=== PATIENT | female | born 1960 | race Caucasian/White ===

== ENCOUNTER → 2020-08-08 13:10 | Outpatient (BNVA) | payer OTHER, SELFPAY | PROVIDERS: PCP Family Medicine; Visit Provider Physician Assistant | DX: E66.3 Overweight (principal); Z68.29 Body mass index [BMI] 29.0-29.9, adult | CPT/HCPCS: 99214 ==

== ENCOUNTER → 2020-09-09 08:12 | Outpatient (BNVA) | payer OTHER, SELFPAY | PROVIDERS: PCP Family Medicine; Visit Provider Dietitian, Registered | DX: Z76.89 Persons encountering health services in other specified circumstances (principal) ==

== ENCOUNTER → 2020-10-10 07:43 | Outpatient (BNVA) | payer OTHER, SELFPAY | PROVIDERS: Visit Provider Physician Assistant | DX: Z76.89 Persons encountering health services in other specified circumstances (principal) ==

== ENCOUNTER 2021-03-17 09:29 | Outpatient (REF) | payer OTHER, SELFPAY ==
[2021-03-17 11:13] LABS: Alanine Aminotransferase 21 U/L (0-31); Albumin Level 4.4 g/dL (3.5-5.0); Alkaline Phosphatase 123 U/L (39-117); Anion Gap 12 (12-20); Aspartate Amino Transferase 19 U/L (5-31); Bilirubin Total 0.6 mg/dL (0.0-1.0); Blood Urea Nitrogen 17 mg/dL (9-16); Carbon Dioxide 26 mmol/L (22-29); Chloride 108 mmol/L (96-108); Cholesterol 191 mg/dL; Estimated Glomerular Filt Rate > 60; Glucose Fasting 93 mg/dL (60-99); HDL Cholesterol 58 mg/dL; LDL Cholesterol Calculated 118 mg/dl; Potassium 4.1 mmol/L (3.3-5.1); Sodium 142 mmol/L (135-145); Total Protein 7.2 g/dL (6.5-8.0); Triglycerides 76 mg/dL
== END 2021-03-17 09:30 | disposition home or self-care (01) ==
LOC: HO.WFDLDS 09:29
PROVIDERS: Visit Provider Family Medicine
DX: Z00.00 Encounter for general adult medical examination without abnormal findings (principal)
CPT/HCPCS: 36415; 80053; 80061; 84443

== ENCOUNTER 2021-04-28 08:48 | Outpatient (REF) | payer OTHER, SELFPAY ==
--- NOTE | ~2021-04-28 | MM_ITS ---
EXAMINATION: MM SCREENING DIGITAL BREAST TOMOSYNTHESIS, BILATERAL CLINICAL INFORMATION: Screening. Asymptomatic. The lifetime risk of breast cancer based on the Tyrer-Cuzick Model is 4%. COMPARISON: Mammography: 03/04/2019, outside exam 10/29/2015 ([facility]). TECHNIQUE: Digital breast tomosynthesis is performed in both the craniocaudal and mediolateral oblique views along with computer-aided detection (CAD). Synthesized 2D images are generated from the tomosynthesis. FINDINGS: There are scattered areas of fibroglandular density (ACR BI-RADS breast composition Category b). There are no significant masses, abnormal calcifications, or other abnormalities. There is a small stable benign circumscribed nodule mid to posterior 9:00 left breast, possibly intramammary node. MM/MM tomosynthesis screening BI IMPRESSION: No mammographic evidence of malignancy. ASSESSMENT: BI-RADS 2: Benign RECOMMENDATION: Routine annual mammography screening. This patient's information was entered into a reminder system with a target due date for their next mammogram.
== END 2021-04-28 08:49 | disposition home or self-care (01) ==
LOC: HO.MAMMO 08:48
PROVIDERS: Visit Provider Family Medicine
DX: Z12.31 Encounter for screening mammogram for malignant neoplasm of breast (principal)
CPT/HCPCS: 77063; 77067

== ENCOUNTER → 2021-06-03 08:37 | Outpatient (BNVA) | payer OTHER, SELFPAY | PROVIDERS: PCP Family Medicine; Referring Provider Family Medicine; Visit Provider Nurse Practitioner Family | DX: G47.9 Sleep disorder, unspecified (principal); R06.83 Snoring | CPT/HCPCS: 99202 ==

== ENCOUNTER → 2021-06-25 08:54 | Outpatient (REF) | payer OTHER, SELFPAY | LOC: HO.SL 08:54 | PROVIDERS: PCP Family Medicine; Visit Provider Nurse Practitioner Family | DX: G47.9 Sleep disorder, unspecified (principal); R06.83 Snoring | CPT/HCPCS: 95806 ==

== ENCOUNTER → 2021-09-09 09:34 | Outpatient (BNVA) | payer OTHER, SELFPAY | PROVIDERS: PCP Family Medicine; Referring Provider Family Medicine; Visit Provider Nurse Practitioner Family ==

== ENCOUNTER 2022-03-19 08:35 | Outpatient (REF) | payer OTHER, SELFPAY ==
[2022-03-19 10:35] LABS: MANUAL DIFF FLAG NO
[2022-03-19 10:40] LABS: Basophils Percent Auto 0.8 % (0-2); Eosinophils Absolute Auto 0.1 X10*3/uL (0.0-0.4); Eosinophils Percent Auto 2.7 % (0-4); Hematocrit 39.9 % (37.0-47.0); Hemoglobin 12.8 g/dl (12.0-16.0); Imm Gran Abs Auto 0.01 X10*3/uL (0.00-0.03); Imm Gran Pct Auto 0.2 % (0.0-0.4); Lymphocytes Absolute Auto 1.3 X10*3/uL (1.2-4.9); Lymphocytes Percent Auto 23.9 % (20-40); Mean Corpuscular HGB Conc 32.1 g/dl (31.0-35.0); Mean Corpuscular Hemoglobin 30.2 pg (27.0-33.0); Mean Corpuscular Volume 94.1 fL (80.0-98.0); Mean Platelet Volume 10.3 fL (9.4-12.3); Monocytes Absolute Auto 0.4 X10*3/uL (0.1-1.2); Monocytes Percent Auto 8.2 % (2-11); Neutrophils Absolute Auto 3.4 x10*3/uL (2.0-8.3); Neutrophils Percent Auto 64.2 % (45-73); Platelet Count 297 X10*3/uL (160-400); Red Blood Count 4.24 X10*6/uL (4.20-5.50); Red Cell Distribution Width 13.4 % (11.0-16.0); White Blood Count 5.3 X10*3/uL (4.8-10.8)
[2022-03-19 10:44] LABS: Appearance Urine CLEAR; Color Urine STRAW; Glucose Urine UA NEG (NEG); Leukocyte Esterase Urine NEG (NEG); Nitrite Urine NEG (NEG); Urine Blood NEG (NEG); Urine Ketones NEG (NEG); Urine Protein NEG (NEG-TRACE)
[2022-03-19 10:58] LABS: Alanine Aminotransferase 22 U/L (0-31); Albumin Level 4.1 g/dL (3.5-5.0); Alkaline Phosphatase 97 U/L (39-117); Anion Gap 14 (12-20); Aspartate Amino Transferase 22 U/L (5-31); Bilirubin Total 0.3 mg/dL (0.0-1.0); Blood Urea Nitrogen 19 mg/dL (9-16); Calcium 10.2 mg/dL (8.4-10.2); Carbon Dioxide 22 mmol/L (22-29); Chloride 112 mmol/L (96-108); Cholesterol 210 mg/dL; Estimated Glomerular Filt Rate > 60; Glucose Fasting 95 mg/dL (60-99); HDL Cholesterol 60 mg/dL; LDL Cholesterol Calculated 133 mg/dl; Potassium 3.8 mmol/L (3.3-5.1); Sodium 144 mmol/L (135-145); Total Protein 6.9 g/dL (6.5-8.0); Triglycerides 88 mg/dL
[2022-03-19 11:18] LABS: TSH reflex Free T4 0.42 uIU/mL (0.32-4.0)
== END 2022-03-19 08:36 | disposition home or self-care (01) ==
LOC: HO.WFDLDS 08:35
PROVIDERS: Visit Provider Family Medicine
DX: Z00.00 Encounter for general adult medical examination without abnormal findings (principal)
CPT/HCPCS: 36415; 80053; 80061; 81003; 84443; 85025

== ENCOUNTER 2022-04-29 09:02 | Outpatient (REF) | payer OTHER, SELFPAY ==
--- NOTE | ~2022-04-29 | MM_ITS ---
EXAMINATION: MM SCREENING DIGITAL BREAST TOMOSYNTHESIS, BILATERAL CLINICAL INFORMATION: Screening. Asymptomatic. The lifetime risk of breast cancer based on the Tyrer-Cuzick Model is 7%. COMPARISON: Mammography: 04/28/2021, 03/04/2019; outside mammography 10/29/2015 ([facility]). TECHNIQUE: Digital breast tomosynthesis is performed in both the craniocaudal and mediolateral oblique views along with computer-aided detection (CAD). Synthesized 2D images are generated from the tomosynthesis. FINDINGS: There are scattered areas of fibroglandular density (ACR BI-RADS breast composition Category b). Left breast is similar to prior studies. There is no developing density or interval mass or architectural abnormality. Neither breast shows abnormal calcifications. The bilateral axilla and skin contours are unremarkable. Right CC view has asymmetric density lower outer anterior breast, 3 cm from nipple. There is no correlate on CC view and finding may represent summation artifact or incompletely compressed glandular tissue. MM/MM tomosynthesis screening BI IMPRESSION: Right: -Asymmetric density anterior outer breast, 3 cm from nipple, possibly summation artifact or incompletely compressed glandular tissue. Left: -No mammographic evidence of malignancy. ASSESSMENT: BI-RADS 0: Incomplete - Need Additional Imaging Evaluation RECOMMENDATION: 1. Additional views of the right breast (spot CC nipple in profile, rolled CC x2). 2. Targeted ultrasound if warranted after review of the additional views. 3. Radiology department staff will contact the patient for additional imaging. This patient's information was entered into a reminder system with a target due date for their next mammogram.
== END 2022-04-29 09:03 | disposition home or self-care (01) ==
LOC: HO.MAMMO 09:02
PROVIDERS: PCP Family Medicine; Visit Provider Family Medicine
DX: Z12.31 Encounter for screening mammogram for malignant neoplasm of breast (principal)
CPT/HCPCS: 77063; 77067

== ENCOUNTER → 2022-05-18 10:18 | Outpatient (REF) | payer OTHER, SELFPAY ==
--- NOTE | 2022-05-18 10:22 | CA_ITS ---
Acquisition Time: 2022-05-18 10:40:49 Total Exercise Time: 00:05:07 Test Indications: Dyspnea Medications: Protocol: JUANY Max HR: 139 BPM 86% of Pred: 161 BPM Max BP: 120/080 mmHG Max Work Load: 7.0 METS Exercise stress test using Juany prtotocol total of 5 min 7 sec, METS 7 and TAPHR up to 86 %. Pt had significant SOB so the test was terminated. EKG without arrhythmias, no ischemic changes seen during exercise or in recovery. Equivical test due to patient's sx, sshould be evaluated further due to her sx and strong family history. Normotensive response tpo exercise. Test reviewed Dr. King. EKG tracing very difficult to read, recomending Nuclear stress test Referred By: Morteza Ross Overread By: Amy Nevarez NP
== END ==
LOC: HO.CARD 10:18
PROVIDERS: PCP Family Medicine; Visit Provider Family Medicine
DX: R06.00 Dyspnea, unspecified (principal)
CPT/HCPCS: 93017

== ENCOUNTER 2022-05-19 14:43 | Outpatient (REF) | payer OTHER, SELFPAY ==
--- NOTE | ~2022-05-19 | MM_ITS ---
EXAMINATION: MM DIAGNOSTIC DIGITAL BREAST TOMOSYNTHESIS, RIGHT CLINICAL INFORMATION: Recall from screening for asymmetric density anterior outer right breast, likely summation artifact or incompletely compressed glandular tissue. COMPARISON: Mammography: 04/29/2022, 04/28/2021, 03/04/2019 TECHNIQUE: Digital breast tomosynthesis is performed. 2D images are generated from the tomosynthesis. The following views are obtained: Spot CC, rolled CC x2. FINDINGS: There are scattered areas of fibroglandular density (ACR BI-RADS breast composition Category b). Additional views show no persistent asymmetric density. There is no mass or architectural abnormality. Results are discussed with the patient at time of visit. MM/MM tomosynthesis added views R IMPRESSION: Additional views show no persistent asymmetric density. ASSESSMENT: BI-RADS 1: Negative RECOMMENDATION: Routine annual mammography screening. This patient's information was entered into a reminder system with a target due date for their next mammogram.
== END 2022-05-19 14:44 | disposition home or self-care (01) ==
LOC: HO.MAMMO 14:43
PROVIDERS: PCP Family Medicine; Visit Provider Family Medicine
DX: R92.2 Inconclusive mammogram (principal)
CPT/HCPCS: 77061; 77065

== ENCOUNTER → 2022-07-17 09:22 | Outpatient (REF) | payer OTHER, SELFPAY ==
--- NOTE | ~2022-07-17 | NM_ITS ---
Lexiscan Myocardial perfusion study Indication: Shortness of breath, assess for coronary disease and ischemia Technique: The patient was brought in for a Lexiscan perfusion study on 07/17/2022 and was injected 0.4 mg of Lexiscan intravenously. Within a minute of this injection 25 mCi of sestamibi was given intravenously. Images were obtained using the SPECT gamma camera interlaced with the gating device. Images were obtained in supine position. Resting perfusion study was performed on 07/20/2022. Patient was administered 25 mCi of sestamibi intravenously at rest. Images were then obtained in supine position. Total DLP 107mGy-cm. Images were processed with the software and compared side to side in short axis, horizontal long axis and vertical long axis views. Findings: Raw acquisition reviewed. The stress perfusion study showed mildly diminished tracer uptake in the distal part of anterior wall. No significant change with CT attenuation correction. The gated study shows normal LV systolic function with calculated LVEF of 67%. LV cavity is normal in size. The gated study shows normal wall thickening and contraction of segments. Resting study shows slightly diminished tracer uptake in the mid part of inferolateral wall. With CT attenuation correction there is improvement suggestive of diaphragmatic attenuation artifact. In the attenuation corrected images, there is slightly decreased uptake in the distal anterior wall. Gating at rest reveals normal wall motion with ejection fraction at 56%. The findings are consistent with mild reversible distal anterior defect but with normal contractility, likely all artifactual. NV/NV cardiolite stress test Impression: 1. Myocardial perfusion imaging study shows no clear evidence of any ischemia or infarction. Likely normal myocardial perfusion. 2. Gated LVEF is 67% during stress and 56% during rest. 3. Transient ischemic dilatation not present. EKG component of the test reported separately.
--- NOTE | 2022-07-17 09:37 | CA_ITS ---
Acquisition Time: 2022-07-17 09:37:37 Total Exercise Time: 00:04:26 Test Indications: sob Medications: see chart Protocol: JUANY Max HR: 131 BPM 81% of Pred: 161 BPM Max BP: 114/080 mmHG Max Work Load: 6.3 METS Exercise stress test with exercise 4 min 26 sec of Juany protocol, achieving 81% MPHR with request to stop due to sob, moderate to severe, no chest discomfort, without arrythmia, with EKG changes suggestive of ischemia with downslope ST segments with bordeline depression inferiorly and V3-V6. Blood pressure in first minute of recovery 90/60, per medical language specialist. Pt assisted to sitting position and once sob, blood pressure and EKGs back to baselne testing changed to a pharmacological stress test with lexiscan injection, while kicking her legs, without anginal symptoms, without arrythmia, with normotensive response to injection, with nondiagnostic EKG for ischemia. Nuclear images pending. test reviewed with Dr Louis. Referred By: Morteza Ross Overread By: AIDAN LOERA
== END ==
LOC: HO.CARD 09:22
PROVIDERS: Visit Provider Family Medicine
DX: R06.00 Dyspnea, unspecified (principal); Z82.49 Family history of ischemic heart disease and other diseases of the circulatory system
CPT/HCPCS: 78452; 93017; A9500; J0280; J2785

== ENCOUNTER → 2022-07-24 09:14 | Outpatient (BNVA) | payer OTHER, SELFPAY | PROVIDERS: PCP Family Medicine; Visit Provider Nurse Practitioner | DX: Z01.818 Encounter for other preprocedural examination (principal) | CPT/HCPCS: 99202; 99212 ==

== ENCOUNTER 2022-11-27 19:31 | Emergency (ER) | payer OTHER, SELFPAY ==
[2022-11-27 19:34] VITALS: BP 134/79; PULSE 116; RESP 20; TEMP 37.1; O2SAT 98; BMI 32.0
--- NOTE | 2022-11-27 19:34 | ED_ITS ---
HPI - URI/Sore Throat General Chief Complaint: Nausea/Vomiting/Diarrhea Stated Complaint: Diarrhea/ Abdominal Pain/ Dizziness Time Seen by Provider: 11/27/22 21:13 Related Data Home Medications Medication Instructions Recorded Confirmed hydroxyzine HCl 25 mg/mL 25 mg IM Q6H PRN 08/06/20 05/25/22 intramuscular solution buspirone 7.5 mg tablet 7.5 mg PO BID 07/24/22 melatonin 3 mg tablet 3 - 6 mg PO BEDTIME PRN 07/24/22 Previous Rx's Medication Instructions Recorded zolpidem 5 mg tablet (Ambien) 5 mg PO BEDTIME PRN sleep 30 days 03/17/21 #15 tabs bupropion HCl 75 mg tablet 75 mg PO BID 30 days #60 tabs 03/27/22 peg 3350-electrolytes 236 240 ml PO Q10M 1 day #4,000 mL 07/24/22 gram-22.74 gram-6.74 gram-5.86 gram solution (Golytely) paroxetine HCl 40 mg tablet 40 mg PO DAILY 30 days #30 tabs 08/13/22 sumatriptan succinate 50 mg tablet 50 mg PO Q2-4H PRN migraine 09/21/22 headache #15 tabs topiramate 100 mg tablet 100 mg PO DAILY #90 tabs 09/21/22 calcium carbonate 600 mg-vitamin 1 tab PO DAILY #30 tabs 10/26/22 D3 20 mcg (800 unit) chewable tablet (Caltrate 600 plus D) amoxicillin 875 mg-potassium 1 tab PO BID #10 tabs 11/21/22 clavulanate 125 mg tablet ibuprofen 800 mg tablet 800 mg PO Q8H PRN pain #30 tabs 11/21/22 Allergies Allergy/AdvReac Type Severity Reaction Status Date / Time No Known Allergies Allergy Verified 11/21/22 12:10 [No Known Allergies*] PMFSH Past Medical History Medical History Sleep apnea Surgical History H/O colonoscopy History of bilateral carpal tunnel release Hx laparoscopic cholecystectomy S/P EDWAR (total abdominal hysterectomy) Family History Family History Father Asthma Mother Dementia Brother No problems noted. Son No problems noted. Son No problems noted. Other Mental health disorder Social History Social History Household Members: Spouse Housing: House Alcohol intake: never Patient Tobacco Use Status: Never used Tobacco e-Cigarette/Vaping Use: Never Used Second Hand Smoke Exposure: No Advance Directives: No Advance Directives Information Provided: Yes service: No Current occupational status: unemployed Current occupational exposures/hazards: No Cognitive needs: No Hearing needs: No Vision needs: No Physical Exam Vital Signs: Vital Signs: Last Vital Signs Temp 98.8 F 11/27/22 19:34 Pulse 96 11/27/22 20:54 Resp 20 11/27/22 19:34 BP 127/67 11/27/22 20:54 Pulse Ox 97 11/27/22 20:54 O2 Del Method 11/27/22 20:54 BMI result Body Mass Index 32.0 Course Course Course Narrative: This is an RME: Additional HPI, ROS, PE not included below will be deferred to primary provider. Patient is a 62-year-old female who presents to emergency department multiple complaints. She reports upper respiratory symptoms x 1 month. 1 week ago, given RX for ABT for AOM, completed and bilateral ear pain persists. Diffuse ABD pain, with N/V/D, black watery stools since yesterday. Denies AC usage. Generalized weakness and dizziness. Denies chest pain or shortness of breath. Plan: Viral testing, occult stool, labs, NS IVF, ondansetron IV Medications Administered Discontinued Medications Generic Name Dose Route Start Last Admin Trade Name Luana PRN Reason Stop Dose Admin Sodium Chloride 1,000 mls @ 999 mls/hr 11/27/22 19:45 11/27/22 21:02 Ns IV 11/27/22 20:45 999 mls/hr .Q1H1M MARYANN Administration Ondansetron HCl 4 mg 11/27/22 19:38 11/27/22 21:01 Ondansetron Hcl 4 Mg/2 Ml Vial IVPUSH 11/27/22 19:39 4 mg ONCE ONE Administration Medical Decision Making Lab Data 11/27/22 20:01 11/27/22 20:01 Labs: Lab Results 01/20/23 01/20/23 01/20/23 Range/Units 20:01 20:01 20:01 WBC 7.0 (4.8-10.8) X10*3/uL RBC 4.50 (4.20-5.50) X10*6/uL Hgb 13.8 (12.0-16.0) g/dl Hct 40.5 (37.0-47.0) % MCV 90.0 (80.0-98.0) fL MCH 30.7 (27.0-33.0) pg MCHC 34.1 (31.0-35.0) g/dl RDW 13.3 (11.0-16.0) % Plt Count 293 (160-400) X10*3/uL MPV 10.0 (9.4-12.3) fL Immature Gran % (Auto) 1.0 H (0.0-0.4) % Neut % (Auto) 88.0 H (45-73) % Lymph % (Auto) 6.3 L (20-40) % [place] % (Auto) 4.3 (2-11) % Eos % (Auto) 0.1 (0-4) % Baso % (Auto) 0.3 (0-2) % Lymph # (Auto) 0.4 L (1.2-4.9) X10*3/uL [place] # (Auto) 0.3 (0.1-1.2) X10*3/uL Eos # (Auto) 0.0 (0.0-0.4) X10*3/uL Baso # (Auto) 0.0 (0.0-0.2) X10*3/uL Abs Immat Gran (auto) 0.07 H (0.00-0.03) X10*3/uL Absolute Neuts (auto) 6.1 (2.0-8.3) x10*3/uL Absolute Nucleated RBC 0.000 (0.0-0.012) X10*3/uL Nucleated RBC % (auto) 0.0 (0.0-0.2) /100WBC PT (10.0-13.1) SEC INR (0.9-1.1) Sodium 138 (135-145) mmol/L Potassium 3.1 L (3.3-5.1) mmol/L Chloride 109 H (96-108) mmol/L Carbon Dioxide 18 L (22-29) mmol/L Anion Gap 14 (12-20) BUN 17 H (9-16) mg/dL Creatinine 0.81 (0.5-1.4) mg/dL Estim Creat Clear Calc 72.0 Estimated GFR > 60 Random Glucose 129 H (60-115) mg/dL Calcium 9.6 (8.4-10.2) mg/dL Total Bilirubin 0.2 (0.0-1.0) mg/dL AST 38 H (5-31) U/L ALT 51 H (0-31) U/L Alkaline Phosphatase 114 (39-117) U/L Total Protein 7.1 (6.5-8.0) g/dL Albumin 4.1 (3.5-5.0) g/dL Lipase 37 (8-78) U/L Urine Color Urine Appearance Urine pH (5.0-9.0) Ur Specific [place] (1.005-1.025) Urine Protein (Neg-Trace) mg/dL Urine Glucose (UA) (Negative) mg/dL Urine Ketones (Negative) mg/dL Urine Blood (Negative) Urine Nitrite (Negative) Ur Leukocyte Esterase (Negative) Urine RBC (0-2) /HPF Urine WBC (0-5) /HPF Ur Squamous Epith Cells (0-2) /HPF Urine Bacteria (None Seen) Hyaline Casts (0-2) /LPF COVID-19 (BENJA) Negative (Negative) COVID-19 Clin Com See Note Influenza Type A (ADALBERTO) (Negative) Influenza Type B (ADALBERTO) (Negative) Influenza A & B Note 11/27/22 11/27/22 11/27/22 Range/Units 20:01 20:01 20:07 WBC (4.8-10.8) X10*3/uL RBC (4.20-5.50) X10*6/uL Hgb (12.0-16.0) g/dl Hct (37.0-47.0) % MCV (80.0-98.0) fL MCH (27.0-33.0) pg MCHC (31.0-35.0) g/dl RDW (11.0-16.0) % Plt Count (160-400) X10*3/uL MPV (9.4-12.3) fL Immature Gran % (Auto) (0.0-0.4) % Neut % (Auto) (45-73) % Lymph % (Auto) (20-40) % [place] % (Auto) (2-11) % Eos % (Auto) (0-4) % Baso % (Auto) (0-2) % Lymph # (Auto) (1.2-4.9) X10*3/uL [place] # (Auto) (0.1-1.2) X10*3/uL Eos # (Auto) (0.0-0.4) X10*3/uL Baso # (Auto) (0.0-0.2) X10*3/uL Abs Immat Gran (auto) (0.00-0.03) X10*3/uL Absolute Neuts (auto) (2.0-8.3) x10*3/uL Absolute Nucleated RBC (0.0-0.012) X10*3/uL Nucleated RBC % (auto) (0.0-0.2) /100WBC PT 11.9 (10.0-13.1) SEC INR 1.0 (0.9-1.1) Sodium (135-145) mmol/L Potassium (3.3-5.1) mmol/L Chloride (96-108) mmol/L Carbon Dioxide (22-29) mmol/L Anion Gap (12-20) BUN (9-16) mg/dL Creatinine (0.5-1.4) mg/dL Estim Creat Clear Calc Estimated GFR Random Glucose (60-115) mg/dL Calcium (8.4-10.2) mg/dL Total Bilirubin (0.0-1.0) mg/dL AST (5-31) U/L ALT (0-31) U/L Alkaline Phosphatase (39-117) U/L Total Protein (6.5-8.0) g/dL Albumin (3.5-5.0) g/dL Lipase (8-78) U/L Urine Color Yellow Urine Appearance Clear Urine pH 5.5 (5.0-9.0) Ur Specific [place] 1.025 (1.005-1.025) Urine Protein 30 (1+) H (Neg-Trace) mg/dL Urine Glucose (UA) Negative (Negative) mg/dL Urine Ketones Negative (Negative) mg/dL Urine Blood Negative (Negative) Urine Nitrite Negative (Negative) Ur Leukocyte Esterase Negative (Negative) Urine RBC 0-2 (0-2) /HPF Urine WBC 0-5 (0-5) /HPF Ur Squamous Epith Cells 0-2 (0-2) /HPF Urine Bacteria None Seen (None Seen) Hyaline Casts 0-2 (0-2) /LPF COVID-19 (BENJA) (Negative) COVID-19 Clin Com Influenza Type A (ADALBERTO) Negative (Negative) Influenza Type B (ADALBERTO) Negative (Negative) Influenza A & B Note See Note Discharge Plan Discharge Prescriptions: No Action bupropion HCl 75 mg tablet 75 mg PO BID 30 Days Qty: 60 3RF paroxetine HCl 40 mg tablet 40 mg PO DAILY 30 Days Qty: 30 3RF zolpidem [Ambien] 5 mg tablet 5 mg PO BEDTIME PRN (Reason: sleep) 30 Days Qty: 15 0RF Rx Instructions: 15 tabs/30 days. MassPat verified. Partial refill upon request. ibuprofen 800 mg tablet 800 mg PO Q8H PRN (Reason: pain) Qty: 30 0RF amoxicillin-pot clavulanate 875-125 mg tablet 1 tab PO BID Qty: 10 0RF topiramate 100 mg tablet 100 mg PO DAILY Qty: 90 0RF sumatriptan succinate 50 mg tablet 50 mg PO Q2-4H PRN (Reason: migraine headache) Qty: 15 1RF Rx Instructions: do not exceed 4 doses per 24 hrs hydroxyzine HCl 25 mg/mL solution 25 mg IM Q6H PRN peg 3350-electrolytes [Golytely] 236-22.74-6.74 -5.86 gram recon soln 240 ml PO Q10M 1 Days Qty: 4000 0RF Rx Instructions: until fecal effluent is clear; do not exceed a total volume of 2,000 mL melatonin 3 mg tablet 3 - 6 mg PO BEDTIME PRN buspirone 7.5 mg tablet 7.5 mg PO BID Caltrate 600 plus D 600 mg-20 mcg (800 unit) tablet,chewable 1 tab PO DAILY Qty: 30 11RF
[2022-11-27 20:07] LABS: MANUAL DIFF FLAG NO
[2022-11-27 20:14] LABS: Appearance Urine Clear; Color Urine Yellow; Glucose Urine UA Negative (Negative); Leukocyte Esterase Urine Negative (Negative); Nitrite Urine Negative (Negative); PH 5.5 (5.0-9.0); Specific Gravity - Urine 1.025 (1.005-1.025); UMIC TRIGGER UACC YES; Urine Blood Negative (Negative); Urine Ketones Negative (Negative); Urine Protein 30 (1+) mg/dL (Neg-Trace)
[2022-11-27 20:16] LABS: Prothrombin Time 11.9 SEC (10.0-13.1)
[2022-11-27 20:16] LABS: Bacteria Urine None Seen (None Seen); Hyaline Casts Urine 0-2 /LPF (0-2); RBC Urine 0-2 /HPF (0-2); Squamous Epithelial Cell Urine 0-2 /HPF (0-2); WBC Urine 0-5 /HPF (0-5)
[2022-11-27 20:27] LABS: Alanine Aminotransferase 51 U/L (0-31); Albumin Level 4.1 g/dL (3.5-5.0); Alkaline Phosphatase 114 U/L (39-117); Anion Gap 14 (12-20); Aspartate Amino Transferase 38 U/L (5-31); Basophils Percent Auto 0.3 % (0-2); Bilirubin Total 0.2 mg/dL (0.0-1.0); Blood Urea Nitrogen 17 mg/dL (9-16); Calcium 9.6 mg/dL (8.4-10.2); Carbon Dioxide 18 mmol/L (22-29); Chloride 109 mmol/L (96-108); Eosinophils Percent Auto 0.1 % (0-4); Estimated Glomerular Filt Rate > 60; Glucose Random 129 mg/dL (60-115); Hematocrit 40.5 % (37.0-47.0); Hemoglobin 13.8 g/dl (12.0-16.0); IDNOW Serial# 16C4AD1C; Imm Gran Abs Auto 0.07 X10*3/uL (0.00-0.03); Influenza A Negative (Negative); Influenza B2 Negative (Negative); Lipase 37 U/L (8-78); Lymphocytes Absolute Auto 0.4 X10*3/uL (1.2-4.9); Lymphocytes Percent Auto 6.3 % (20-40); Mean Corpuscular HGB Conc 34.1 g/dl (31.0-35.0); Mean Corpuscular Hemoglobin 30.7 pg (27.0-33.0); Monocytes Absolute Auto 0.3 X10*3/uL (0.1-1.2); Monocytes Percent Auto 4.3 % (2-11); Neutrophils Absolute Auto 6.1 x10*3/uL (2.0-8.3); Platelet Count 293 X10*3/uL (160-400); Potassium 3.1 mmol/L (3.3-5.1); Red Cell Distribution Width 13.3 % (11.0-16.0); Sodium 138 mmol/L (135-145); Total Protein 7.1 g/dL (6.5-8.0)
[2022-11-27 20:28] LABS: COVID-19 Test Negative (Negative); IDNOW Serial# BCCEAD1C
[2022-11-27 20:54] VITALS: BP 127/67; PULSE 96; O2SAT 97
[2022-11-27] MEDS: ondansetron HCL 4 MG/2 ML VIAL IVPUSH (21:01)
[2022-11-27] MEDS: 0.9 % Sodium Chloride 1,000 ML 999 ML IV (21:02)
--- NOTE | 2022-11-27 21:28 | ED_ITS ---
HPI - Nausea/Vomiting/Diarrhea General Chief complaint: Nausea/Vomiting/Diarrhea Stated complaint: Diarrhea/ Abdominal Pain/ Dizziness Time Seen by Provider: 11/27/22 21:13 Source: patient Mode of arrival: ambulatory Limitations: no limitations History of Present Illness HPI Narrative: Patient been having multiple time loose bowels vomiting for last 2 days having watery diarrhea more than 15 times today took Pepto-Bismol initially was dark in color now is yellowish-green no fever has some chills with diffuse abdominal cramps. 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 No other no recent travel Related Data Home Medications Medication Instructions Recorded Confirmed hydroxyzine HCl 25 mg/mL 25 mg IM Q6H PRN 08/06/20 05/25/22 intramuscular solution buspirone 7.5 mg tablet 7.5 mg PO BID 07/24/22 melatonin 3 mg tablet 3 - 6 mg PO BEDTIME PRN 07/24/22 Previous Rx's Medication Instructions Recorded zolpidem 5 mg tablet (Ambien) 5 mg PO BEDTIME PRN sleep 30 days 03/17/21 #15 tabs bupropion HCl 75 mg tablet 75 mg PO BID 30 days #60 tabs 03/27/22 peg 3350-electrolytes 236 240 ml PO Q10M 1 day #4,000 mL 07/24/22 gram-22.74 gram-6.74 gram-5.86 gram solution (Golytely) paroxetine HCl 40 mg tablet 40 mg PO DAILY 30 days #30 tabs 08/13/22 sumatriptan succinate 50 mg tablet 50 mg PO Q2-4H PRN migraine 09/21/22 headache #15 tabs topiramate 100 mg tablet 100 mg PO DAILY #90 tabs 09/21/22 calcium carbonate 600 mg-vitamin 1 tab PO DAILY #30 tabs 10/26/22 D3 20 mcg (800 unit) chewable tablet (Caltrate 600 plus D) amoxicillin 875 mg-potassium 1 tab PO BID #10 tabs 11/21/22 clavulanate 125 mg tablet ibuprofen 800 mg tablet 800 mg PO Q8H PRN pain #30 tabs 11/21/22 loperamide 2 mg tablet (Imodium 2 mg PO Q6H PRN loose stool #10 11/27/22 A-D) tabs ondansetron 4 mg disintegrating 4 mg PO Q6-8H PRN nausea and 11/27/22 tablet vomiting #10 tabs Allergies Allergy/AdvReac Type Severity Reaction Status Date / Time No Known Allergies Allergy Verified 11/21/22 12:10 [No Known Allergies*] Review of Systems Review of Systems: Yes all other systems are reviewed and are negative PMFSH Past Medical History Medical History Sleep apnea Surgical History H/O colonoscopy History of bilateral carpal tunnel release Hx laparoscopic cholecystectomy S/P EDWAR (total abdominal hysterectomy) Family History Family History Father Asthma Mother Dementia Brother No problems noted. Son No problems noted. Son No problems noted. Other Mental health disorder Social History Social History Household Members: Spouse Housing: House Alcohol intake: never Patient Tobacco Use Status: Never used Tobacco e-Cigarette/Vaping Use: Never Used Second Hand Smoke Exposure: No Advance Directives: No Advance Directives Information Provided: Yes service: No Current occupational status: unemployed Current occupational exposures/hazards: No Cognitive needs: No Hearing needs: No Vision needs: No Physical Exam Vital Signs: Vital Signs: Last Vital Signs Temp 98.8 F 11/27/22 19:34 Pulse 88 11/27/22 22:22 Resp 20 11/27/22 19:34 BP 105/27 L 11/27/22 22:22 Pulse Ox 98 11/27/22 22:22 O2 Del Method 11/27/22 22:22 BMI result Body Mass Index 32.0 Appearance: Alert. Oriented X3. No acute distress. Eyes: PERRLA, No Nystagmus ENT: Pharynx normal. Oral Mucosa moist Neck: Normal inspection. Neck supple. CVS: Normal heart rate and rhythm. Pulses normal. Respiratory: No respiratory distress. Equal air entry bilateral, no wheezing/rales/rhonchi Abdomen: Soft , diffuse tenderness no focal tenderness or guarding, Bowel sounds are present, no mass palpable, no CVA tenderness Skin: Skin warm and dry. Normal skin color. Normal skin turgor. Extremities: No lower extremity edema. No calf tenderness Neuro: Oriented X 3. No motor deficit. Medications Administered Discontinued Medications Generic Name Dose Route Start Last Admin Trade Name Marcianoq PRN Reason Stop Dose Admin Sodium Chloride 1,000 mls @ 999 mls/hr 11/27/22 19:45 11/27/22 22:27 Ns IV 11/27/22 20:45 Infused .Q1H1M MARYANN Infusion Ketorolac Tromethamine 30 mg 11/27/22 22:29 11/27/22 22:37 Ketorolac Tromethamine 30 Mg/Ml Vial IVPUSH 11/27/22 22:30 30 mg ONCE ONE Administration Loperamide HCl 4 mg 11/27/22 21:28 11/27/22 21:42 Loperamide Hcl 2 Mg Capsule PO 11/27/22 21:29 4 mg ONCE ONE Administration Ondansetron HCl 4 mg 11/27/22 19:38 11/27/22 21:01 Ondansetron Hcl 4 Mg/2 Ml Vial IVPUSH 11/27/22 19:39 4 mg ONCE ONE Administration Potassium Bicarbonate 25 meq 11/27/22 21:28 11/27/22 21:45 Potassium Bicarbonate/Cit Ac 25 Meq Tablet.Eff PO 11/27/22 21:29 25 meq ONCE ONE Administration Medical Decision Making Medical Decision Making [facility] Narrative: Patient acute gastroenteritis likely viral received IV fluids feeling much better taking p.o. fluids discharge patient home Lab Data [facility] Lab Attestation statement: I reviewed the patient's lab results. 11/27/22 20:01 11/27/22 20:01 Labs: Lab Results 11/27/22 11/27/22 11/27/22 Range/Units 20:01 20:01 20:01 WBC 7.0 (4.8-10.8) X10*3/uL RBC 4.50 (4.20-5.50) X10*6/uL Hgb 13.8 (12.0-16.0) g/dl Hct 40.5 (37.0-47.0) % MCV 90.0 (80.0-98.0) fL MCH 30.7 (27.0-33.0) pg MCHC 34.1 (31.0-35.0) g/dl RDW 13.3 (11.0-16.0) % Plt Count 293 (160-400) X10*3/uL MPV 10.0 (9.4-12.3) fL Immature Gran % (Auto) 1.0 H (0.0-0.4) % Neut % (Auto) 88.0 H (45-73) % Lymph % (Auto) 6.3 L (20-40) % [place] % (Auto) 4.3 (2-11) % Eos % (Auto) 0.1 (0-4) % Baso % (Auto) 0.3 (0-2) % Lymph # (Auto) 0.4 L (1.2-4.9) X10*3/uL [place] # (Auto) 0.3 (0.1-1.2) X10*3/uL Eos # (Auto) 0.0 (0.0-0.4) X10*3/uL Baso # (Auto) 0.0 (0.0-0.2) X10*3/uL Abs Immat Gran (auto) 0.07 H (0.00-0.03) X10*3/uL Absolute Neuts (auto) 6.1 (2.0-8.3) x10*3/uL Absolute Nucleated RBC 0.000 (0.0-0.012) X10*3/uL Nucleated RBC % (auto) 0.0 (0.0-0.2) /100WBC PT (10.0-13.1) SEC INR (0.9-1.1) Sodium 138 (135-145) mmol/L Potassium 3.1 L (3.3-5.1) mmol/L Chloride 109 H (96-108) mmol/L Carbon Dioxide 18 L (22-29) mmol/L Anion Gap 14 (12-20) BUN 17 H (9-16) mg/dL Creatinine 0.81 (0.5-1.4) mg/dL Estim Creat Clear Calc 72.0 Estimated GFR > 60 Random Glucose 129 H (60-115) mg/dL Calcium 9.6 (8.4-10.2) mg/dL Total Bilirubin 0.2 (0.0-1.0) mg/dL AST 38 H (5-31) U/L ALT 51 H (0-31) U/L Alkaline Phosphatase 114 (39-117) U/L Total Protein 7.1 (6.5-8.0) g/dL Albumin 4.1 (3.5-5.0) g/dL Lipase 37 (8-78) U/L Urine Color Urine Appearance Urine pH (5.0-9.0) Ur Specific [place] (1.005-1.025) Urine Protein (Neg-Trace) mg/dL Urine Glucose (UA) (Negative) mg/dL Urine Ketones (Negative) mg/dL Urine Blood (Negative) Urine Nitrite (Negative) Ur Leukocyte Esterase (Negative) Urine RBC (0-2) /HPF Urine WBC (0-5) /HPF Ur Squamous Epith Cells (0-2) /HPF Urine Bacteria (None Seen) Hyaline Casts (0-2) /LPF COVID-19 (BENJA) Negative (Negative) COVID-19 Clin Com See Note Influenza Type A (ADALBERTO) (Negative) Influenza Type B (ADALBERTO) (Negative) Influenza A & B Note 11/27/22 11/27/22 11/27/22 Range/Units 20:01 20:01 20:07 WBC (4.8-10.8) X10*3/uL RBC (4.20-5.50) X10*6/uL Hgb (12.0-16.0) g/dl Hct (37.0-47.0) % MCV (80.0-98.0) fL MCH (27.0-33.0) pg MCHC (31.0-35.0) g/dl RDW (11.0-16.0) % Plt Count (160-400) X10*3/uL MPV (9.4-12.3) fL Immature Gran % (Auto) (0.0-0.4) % Neut % (Auto) (45-73) % Lymph % (Auto) (20-40) % [place] % (Auto) (2-11) % Eos % (Auto) (0-4) % Baso % (Auto) (0-2) % Lymph # (Auto) (1.2-4.9) X10*3/uL [place] # (Auto) (0.1-1.2) X10*3/uL Eos # (Auto) (0.0-0.4) X10*3/uL Baso # (Auto) (0.0-0.2) X10*3/uL Abs Immat Gran (auto) (0.00-0.03) X10*3/uL Absolute Neuts (auto) (2.0-8.3) x10*3/uL Absolute Nucleated RBC (0.0-0.012) X10*3/uL Nucleated RBC % (auto) (0.0-0.2) /100WBC PT 11.9 (10.0-13.1) SEC INR 1.0 (0.9-1.1) Sodium (135-145) mmol/L Potassium (3.3-5.1) mmol/L Chloride (96-108) mmol/L Carbon Dioxide (22-29) mmol/L Anion Gap (12-20) BUN (9-16) mg/dL Creatinine (0.5-1.4) mg/dL Estim Creat Clear Calc Estimated GFR Random Glucose (60-115) mg/dL Calcium (8.4-10.2) mg/dL Total Bilirubin (0.0-1.0) mg/dL AST (5-31) U/L ALT (0-31) U/L Alkaline Phosphatase (39-117) U/L Total Protein (6.5-8.0) g/dL Albumin (3.5-5.0) g/dL Lipase (8-78) U/L Urine Color Yellow Urine Appearance Clear Urine pH 5.5 (5.0-9.0) Ur Specific [place] 1.025 (1.005-1.025) Urine Protein 30 (1+) H (Neg-Trace) mg/dL Urine Glucose (UA) Negative (Negative) mg/dL Urine Ketones Negative (Negative) mg/dL Urine Blood Negative (Negative) Urine Nitrite Negative (Negative) Ur Leukocyte Esterase Negative (Negative) Urine RBC 0-2 (0-2) /HPF Urine WBC 0-5 (0-5) /HPF Ur Squamous Epith Cells 0-2 (0-2) /HPF Urine Bacteria None Seen (None Seen) Hyaline Casts 0-2 (0-2) /LPF COVID-19 (BENJA) (Negative) COVID-19 Clin Com Influenza Type A (ADALBERTO) Negative (Negative) Influenza Type B (ADALBERTO) Negative (Negative) Influenza A & B Note See Note Discharge Plan Discharge Clinical Impression: Viral gastroenteritis Patient Disposition: Home, Self-Care Instructions: Acute Nausea and Vomiting (ED), Acute Diarrhea (ED) Additional Instructions: Drink plenty of fluids Medicine for nausea as prescribed Imodium as advised for severe diarrhea Follow-up with PCP if not better Prescriptions: New ondansetron 4 mg tablet,disintegrating 4 mg PO Q6-8H PRN (Reason: nausea and vomiting) Qty: 10 0RF loperamide [Imodium A-D] 2 mg tablet 2 mg PO Q6H PRN (Reason: loose stool) Qty: 10 0RF No Action bupropion HCl 75 mg tablet 75 mg PO BID 30 Days Qty: 60 3RF paroxetine HCl 40 mg tablet 40 mg PO DAILY 30 Days Qty: 30 3RF zolpidem [Ambien] 5 mg tablet 5 mg PO BEDTIME PRN (Reason: sleep) 30 Days Qty: 15 0RF Rx Instructions: 15 tabs/30 days. MassPat verified. Partial refill upon request. ibuprofen 800 mg tablet 800 mg PO Q8H PRN (Reason: pain) Qty: 30 0RF amoxicillin-pot clavulanate 875-125 mg tablet 1 tab PO BID Qty: 10 0RF topiramate 100 mg tablet 100 mg PO DAILY Qty: 90 0RF sumatriptan succinate 50 mg tablet 50 mg PO Q2-4H PRN (Reason: migraine headache) Qty: 15 1RF Rx Instructions: do not exceed 4 doses per 24 hrs hydroxyzine HCl 25 mg/mL solution 25 mg IM Q6H PRN peg 3350-electrolytes [Golytely] 236-22.74-6.74 -5.86 gram recon soln 240 ml PO Q10M 1 Days Qty: 4000 0RF Rx Instructions: until fecal effluent is clear; do not exceed a total volume of 2,000 mL melatonin 3 mg tablet 3 - 6 mg PO BEDTIME PRN buspirone 7.5 mg tablet 7.5 mg PO BID Caltrate 600 plus D 600 mg-20 mcg (800 unit) tablet,chewable 1 tab PO DAILY Qty: 30 11RF Interventions: ED Discharge Assessment Last Done: 11/27/22 23:07 Discharge Date/Time: 11/27/22 23:09
[2022-11-27] MEDS: Loperamide HCl 2 MG CAPSULE 4 MG PO (21:42)
[2022-11-27] MEDS: Potassium Bicarbonate/Cit AC 25 MEQ TABLET.EFF PO (21:45)
[2022-11-27 22:22] VITALS: BP 105/27; PULSE 88; O2SAT 98
[2022-11-27] MEDS: Ketorolac Tromethamine 30 MG/ML VIAL IVPUSH (22:37)
== END 2022-11-27 23:09 | disposition home or self-care (01) ==
PROVIDERS: Nurse Practitioner Family; Emergency Provider Internal Medicine; PCP Family Medicine
DX: A08.4 Viral intestinal infection, unspecified (principal); R42 Dizziness and giddiness; R19.7 Diarrhea, unspecified; R10.9 Unspecified abdominal pain
CPT/HCPCS: 36415; 80053; 81001; 83690; 85025; 85610; 87502; 87635; 96361; 96374; 96375; 99284; J1885; J2405

== ENCOUNTER 2022-12-29 07:50 | Day surgery (SDC) | payer OTHER, SELFPAY ==
[2022-12-22 13:34] VITALS: BMI 31.6
[2022-12-29 08:54] VITALS: BP 106/71; PULSE 86; RESP 18; TEMP 37; O2SAT 97
--- NOTE | 2022-12-29 08:56 | P.CONAN_ITS ---
[facility] Active Problems Active Problems: All Active Problems (Updated 12/22/22 @ 12:56 by Pooja Willams RN) Depression (Acute) Migraines (Acute) Overweight (BMI 25.0-29.9) (Acute) Insomnia (Acute) Breast cancer screening by mammogram (Acute) Screening for colon cancer (Acute) Screening for cervical cancer (Acute) Adult general medical exam (Acute) Sleep disorder (Acute) Snoring (Acute) Mild obstructive sleep apnea (Acute) Anxiety with depression (Acute) Toe pain (Acute) Dyspnea on exertion (Acute) Family history of coronary artery disease (Acute) Constipation (Acute) Pre-op examination (Acute) Varicose veins of bilateral lower extremities with pain (Acute) Past Medical History Medical History Anxiety and depression Hx of migraines Sleep apnea Family History Family History Father Asthma Mother Dementia Brother No problems noted. Son No problems noted. Son No problems noted. Other Mental health disorder Surgical History Surgical History H/O colonoscopy History of bilateral carpal tunnel release Hx laparoscopic cholecystectomy S/P EDWAR (total abdominal hysterectomy) History of Problems with Anesthesia: No Social History Social History Household Members: Spouse Housing: House Alcohol intake: never Patient Tobacco Use Status: Never used Tobacco e-Cigarette/Vaping Use: Never Used Second Hand Smoke Exposure: No Use of substances other than those prescribed or required for medical reasons: No Have you been hit, kicked, punched, or otherwise hurt by someone within the past year? If so, by whom?: No Are you DNR?: No Advance Directives: No Advance Directives Information Provided: Yes Advance Directives on File: No Recently lost weight without trying: No Nutrition Risks: No Nutritional Risk service: No Current occupational status: unemployed Current occupational exposures/hazards: No Cognitive needs: No Hearing needs: No Vision needs: No Meds Allergies Allergy/AdvReac Type Severity Reaction Status Date / Time No Known Allergies Allergy Verified 12/22/22 13:12 [No Known Allergies*] Home Medications Medication Instructions Recorded Confirmed Last Taken Type hydroxyzine HCl 25 mg/mL 25 mg IM Q6H PRN Nausea 08/06/20 12/22/22 Unknown History intramuscular solution buspirone 7.5 mg tablet 7.5 mg PO BID 07/24/22 12/22/22 Unknown History melatonin 3 mg tablet 3 - 6 mg PO BEDTIME PRN Sleep 07/24/22 12/22/22 Unknown History aripiprazole 2 mg tablet 2 mg PO BEDTIME 12/22/22 12/22/22 Unknown History Exam Exam Date and Time: December 29, 2022 0856 Height,Weight and Vital Signs: Height 5 ft 2 in Weight 78.471 kg Airway Mallampati Class: III TM Dist: >3cm Neck ROM: Full Loose/Missing/Broken Teeth: No Heart: RRR Lungs: CTA Assessment and Plan Assessment Anesthesia Assessment: Anesthesia Plan Discussed and Chart Reviewed Final Anesthetic Review History of Problems with Anesthesia: No NPO: Yes ASA Class: II Final Preanesthetic Review: Meds/Allgs Chart Reviewed, Consent Obtained/Reviewed and Anes Risks/Benef Reviewed Patient Risk: Low Procedure Risk: Low Anesthetic Plan Anesthetic Plan: MAC: Disposition: Standard PACU
[2022-12-29 08:59] VITALS: BMI 31.1
--- NOTE | 2022-12-29 09:23 | MHC.SHP ---
Pre-Procedural Eval Section A Date of Service: 12/29/22 Section B Chief Complaint: Encounter for screening for malignant neoplasm of Relevant Family History (Specify if Yes): No Relevant Social History: None Present Medications: see Short Stay Collaborative assessment Medical History: Significant History (Obstructive sleep apnea Migraines Constipation Depression/anxiety/insomnia) History of Previous Operations: Relevant previous surgery/procedure and date(s) (Colonoscopy Bilateral carpal tunnel release new laparoscopic cholecystectomy Total abdominal hysterectomy) Allergies: Allergies Allergy/AdvReac Type Severity Reaction Status Date / Time No Known Allergies Allergy Verified 12/22/22 13:12 [No Known Allergies*] Review of Systems Sugical H&P ROS: Negative: Constitution, Cardiovascular, Respiratory, Neurological, Psychiatric, Hem-Onc, Allergic/Immunologic, Gastrointestinal, Genitourinary, Musculoskeletal, Integumentary, Endocrine and Eyes/Ears/Nose/Throat Exam Surgical H&P Exam: Normal: HEENT, Normal: Heart, Normal: Lungs, Normal: Extremities, Normal: Abdomen, Normal: Skin and Normal: Neurological Plan Diagnosis/Plan: Unchanged I have reviewed the history and physical and performed a pertinent physical examination on my patient. No changes have occurred unless specified. Time Spent With Patient Time: Total time managing care of this patient today ____ minutes.
[2022-12-29] MEDS: Lactated Ringers 1,000 ML 50 ML IVCONT (09:25)
--- NOTE | 2022-12-29 09:27 | W.PM.OPN ---
Operative Note Operative Note Date of Service: 12/29/22 Narrative: Operative Information Procedure Description: Colonoscopy Indication: screening Anesthesia: MAC COLONOSCOPY Instrument: Olympus variable stiffness pediatric scope 190L Colonoscopy Monitoring: Vital signs and clinical assessment, continuous EKG monitoring, Pulse oximetry, Carbon Dioxide monitoring and blood pressure monitoring were done throughout the procedure. Colon withdrawal time was 6 minutes. Procedure: The patient was placed in the left lateral decubitis position and pre-procedure medications were administered. After a digital rectal examination of the ano-rectum, the video colonoscope was inserted into the rectum and advanced through the colon to the cecum/TI. The colonoscope was slowly withdrawn in a retrograde panoramic fashion and the colon mucosa was carefully examined including a retroflexed view of the rectum. Findings and interventions are described below. Procedure Difficulty: difficult due to redundant colon--pressure applied Findings: Terminal Ileum-normal Cecum:normal Ascending Colon: normal Transverse Colon -normal Descending Colon:normal Sigmoid Colon: normal Rectum: Retroflexion with medium sized internal hemorrhoids, grade II Anorectum - normal Colon preparation: [place] Bowel Preparation Scale Right colon; 2 Transverse colon: 2 Left colon; 2 (0 = Unprepared colon segment with mucosa not seen due to solid stool that cannot be cleared. 1 = Portion of mucosa of the colon segment seen, but other areas of the colon segment not well seen due to staining, residual stool and/or opaque liquid. 2 = Minor amount of residual staining, small fragments of stool and/or opaque liquid, but mucosa of colon segment seen well. 3 = Entire mucosa of colon segment seen well with no residual staining, small fragments of stool or opaque liquid) Impression and Post Procedure Diagnosis: internal hemorrhoids Plan: High fiber diet leaflet Avoid straining at stool, epsom salts and sitz bath, anusol supps or cream Repeat Colonoscopy in 10 years or earlier if clinically indicated Above findings were reviewed with the patient and relevant handouts were provided if indicated.
[2022-12-29 10:06] VITALS: BP 96/64; PULSE 77; RESP 20; TEMP 36.3; O2SAT 96
[2022-12-29 10:21] VITALS: BP 116/62; PULSE 65; RESP 16; TEMP 36.3; O2SAT 100
== END 2022-12-29 11:09 | disposition home or self-care (01) ==
PROVIDERS: PCP Family Medicine; Visit Provider Internal Medicine Gastroenterology
PROC: 0DJD8ZZ Inspection of Lower Intestinal Tract, Via Natural or Artificial Opening Endoscopic (ICD-10-PCS; CPT 45378; principal; 2022-12-29 09:20)
DX: Z12.11 Encounter for screening for malignant neoplasm of colon (principal); K64.1 Second degree hemorrhoids; K59.04 Chronic idiopathic constipation; G43.909 Migraine, unspecified, not intractable, without status migrainosus; G47.33 Obstructive sleep apnea (adult) (pediatric); F41.8 Other specified anxiety disorders; Z79.1 Long term (current) use of non-steroidal anti-inflammatories (NSAID); Z79.899 Other long term (current) drug therapy; Z90.49 Acquired absence of other specified parts of digestive tract
CPT/HCPCS: 45378

== ENCOUNTER → 2023-02-17 12:10 | Outpatient (BNVA) | payer OTHER, SELFPAY | PROVIDERS: PCP Family Medicine; Visit Provider Nurse Practitioner | DX: Z01.818 Encounter for other preprocedural examination (principal); K59.04 Chronic idiopathic constipation; Z90.49 Acquired absence of other specified parts of digestive tract; Z98.890 Other specified postprocedural states | CPT/HCPCS: 99212 ==

== ENCOUNTER 2023-04-23 09:18 | Emergency (ER) | payer OTHER, SELFPAY ==
[2023-04-23 09:22] VITALS: BP 141/71; PULSE 66; RESP 16; TEMP 36.5; O2SAT 97
[2023-04-23 09:39] VITALS: BP 131/69; PULSE 65; RESP 16; TEMP 36.5; O2SAT 97; BMI 33.8
[2023-04-23] MEDS: 0.9 % Sodium Chloride 1,000 ML 999 ML IV (10:01)
--- NOTE | 2023-04-23 10:02 | ED.HA ---
HPI - Headache General Chief Complaint: Headache Stated Complaint: migraine Time Seen by Provider: 04/23/23 09:40 Source: patient and family () Mode of arrival: ambulatory Limitations: no limitations History of Present Illness HPI Narrative: This is a 62-year-old female history of migraines, obstructive sleep apnea, depression, anxiety presenting to the emergency department for evaluation of migraine for the past 2 days, patient tells me she has history of this however decided to come in today because she took her sumatriptan and Excedrin with little to no relief. She tells me that this feels like her typical migraine however it is not going away. Not followed by Neurology. Patient also reports associated fatigue, malaise, nausea, vomiting. Denies any dizziness, fevers, chills, visual disturbances, chest pain, shortness of breath, neck pain, weakness, aphasia, difficulty with word finding. NIH stroke scale 0. Related Data Home Medications Medication Instructions Recorded Confirmed hydroxyzine HCl 25 mg/mL 25 mg IM Q6H PRN Nausea 08/06/20 12/22/22 intramuscular solution buspirone 7.5 mg tablet 7.5 mg PO BID 07/24/22 12/22/22 melatonin 3 mg tablet 3 - 6 mg PO BEDTIME PRN Sleep 07/24/22 12/22/22 aripiprazole 2 mg tablet 2 mg PO BEDTIME 12/22/22 12/22/22 Previous Rx's Medication Instructions Recorded zolpidem 5 mg tablet (Ambien) 5 mg PO BEDTIME PRN sleep 30 days 03/17/21 #15 tabs bupropion HCl 75 mg tablet 75 mg PO BID 30 days #60 tabs 03/27/22 paroxetine HCl 40 mg tablet 40 mg PO DAILY 30 days #30 tabs 08/13/22 sumatriptan succinate 50 mg tablet 50 mg PO Q2-4H PRN migraine 09/21/22 headache #15 tabs calcium carbonate 600 mg-vitamin 1 tab PO DAILY #30 tabs 10/26/22 D3 20 mcg (800 unit) chewable tablet (Caltrate 600 plus D) ibuprofen 800 mg tablet 800 mg PO Q8H PRN pain #30 tabs 11/21/22 ondansetron 4 mg disintegrating 4 mg PO Q6-8H PRN nausea and 11/27/22 tablet vomiting #10 tabs topiramate 100 mg tablet 100 mg PO DAILY #90 tabs 01/11/23 bisacodyl 5 mg tablet,delayed 10 mg PO BEDTIME 30 days #60 tabs 02/17/23 release (Dulcolax (bisacodyl)) docusate sodium 100 mg capsule 100 mg PO .bid with food 30 days 02/17/23 (Colace) #60 caps diphenhydramine HCl 25 mg capsule 25 mg PO TID PRN allergic reaction 04/23/23 (Benadryl) #20 caps ketorolac 10 mg tablet 10 mg PO TID PRN pain 5 days #15 04/23/23 tabs metoclopramide HCl 10 mg tablet 10 mg PO Q6H PRN headache #20 tabs 04/23/23 (Reglan) Allergies Allergy/AdvReac Type Severity Reaction Status Date / Time No Known Allergies Allergy Verified 02/17/23 12:28 [No Known Allergies*] Review of Systems Review of Systems: Constitutional : No Weight loss, No Fever, No Chills, No Fatigue, No Malaise ENT/Mouth : No sore throat, No Rhinorrhea Eyes: No Eye Pain, No Swelling, No Redness Cardiovascular : No Chest Pain, No SOB, No Dyspnea on Exertion, No Orthopnea, No Edema, No Palpitations Respiratory : No Cough, No Sputum, No Wheezing Gastrointestinal : + Nausea, + Vomiting, No Diarrhea, No Constipation, No abdominal Pain, No Hematochezia, No Melena Genitourinary : No Dysuria, No Urinary Frequency, No Hematuria, Musculoskeletal : No joint pain, No Myalgias, No Joint Swelling Skin : No Skin Lesions, No rash Neuro : No Weakness, No Numbness, No Dizziness, + Headache Psych : No Anxiety/Panic, No Depression All other systems reviewed and are negative Yes all other systems are reviewed and are negative [facility] Past Medical History Attestation statement: The following information was validated with the patient. Source: old records reviewed and nursing notes reviewed Medical History Anxiety and depression Hx of migraines Sleep apnea Surgical History H/O colonoscopy History of bilateral carpal tunnel release Hx laparoscopic cholecystectomy S/P EDWAR (total abdominal hysterectomy) Family History Family History Father Asthma Mother Dementia Brother No problems noted. Son No problems noted. Son No problems noted. Other Mental health disorder Social History Social History Household Members: Spouse Housing: House Alcohol intake: never Patient Tobacco Use Status: Never used Tobacco e-Cigarette/Vaping Use: Never Used Second Hand Smoke Exposure: No Advance Directives: No Advance Directives Information Provided: No service: No Current occupational status: unemployed Current occupational exposures/hazards: No Cognitive needs: No Hearing needs: No Vision needs: No Physical Exam Vital Signs: Vital Signs: Last Vital Signs Temp 97.7 F 04/23/23 09:39 Pulse 70 04/23/23 10:44 Resp 14 04/23/23 10:44 BP 125/72 04/23/23 10:44 Pulse Ox 96 04/23/23 10:44 O2 Del Method Room Air 04/23/23 10:44 BMI result Body Mass Index 33.8 vss Appearance: Alert.? Oriented X3.? No acute distress.? Head: Normocephalic, atraumatic, no step-offs or deformities Eyes: Pupils equal, round and reactive to light.? Extraocular movements intact, pain-free, no nystagmus Neck: Normal inspection.? Neck supple.? No meningeal signs negative Kernig and Brudzinski CVS: Normal heart rate and rhythm.? Pulses normal.? Respiratory: No respiratory distress.? Breath sounds normal.? Abdomen: Soft and nontender.? Skin: Skin warm and dry.? Normal skin color.? Normal skin turgor.? Extremities: No lower extremity edema.? No calf ttp. 5/5 strength to bilateral upper and lower extremities Neuro: Oriented X 3.? No motor deficit.? No sensory deficit. CN 2-12 intact. Negative Romberg and pronator drift. Normal [id number]. Steady tandem gait with normal coordination. NIH stroke scale 0. Course Reevaluation(s) Reevaluation #1: Patient feeling much better reports that her pain has resolved. Educated patient on diagnosis and treatment plan, answered all question, patient verbalizes understanding. At this time patient will be discharged home, advised to return with new or worsening symptoms. Educated on worrisome signs and symptoms and when to return. At this time I feel comfortable discharge home. Time: 11:28 Reevaluation #2: To note, at time of discharge patient is Neuro nonfocal, cerebellar still intact. Medications Administered Discontinued Medications Generic Name Dose Route Start Last Admin Trade Name Luana PRN Reason Stop Dose Admin Diphenhydramine HCl 50 mg 04/23/23 09:54 04/23/23 10:07 Diphenhydramine Hcl 50 Mg/Ml Vial IVPUSH 04/23/23 09:55 50 mg ONCE ONE Administration Sodium Chloride 1,000 mls @ 999 mls/hr 04/23/23 10:00 04/23/23 11:31 Ns IV 04/23/23 11:00 Infused .Q1H1M MARYANN Infusion Ketorolac Tromethamine 30 mg 04/23/23 09:54 04/23/23 10:07 Ketorolac Tromethamine 15 Mg/Ml Vial IVPUSH 04/23/23 09:55 30 mg ONCE ONE Administration Metoclopramide HCl 10 mg 04/23/23 09:54 04/23/23 10:07 Metoclopramide Hcl 10 Mg/2 Ml Vial IVPUSH 04/23/23 09:55 10 mg ONCE ONE Administration Medical Decision Making Medical Decision Making MDM Narrative: 1000 62-year-old female presents with migraine for the past 2 days not improving despite sumatriptan and Excedrin. Not followed by Neurology. Reports associated nausea and vomiting Physical examination benign. Neuro nonfocal. Cerebellar intact. NIH stroke scale 0. No meningeal signs. Likely typical migraine. Unlikely intracranial hemorrhage, stroke, posterior stroke, meningitis, encephalitis. Plan medications. No indication for imaging, no red flag symptoms. I do not suspect stroke. No fever no need for lumbar puncture. Differential Diagnosis Differential Diagnoses: The differential diagnosis associated with the presentation includes Likely typical migraine. Unlikely intracranial hemorrhage, stroke, posterior stroke, meningitis, encephalitis. Admission/Observation Consideration of admission/observation: Escalation of care including admission/observation considered unlikley Tests considered The following testing was considered but not selected: No indication for imaging, no red flag symptoms, NIHSS0, neuro non focal and no trauma . I do not suspect stroke. No fever no need for lumbar puncture. Core Measures AMI core measures followed: Yes Measure exclusions: not indicated Critical Care Time Critical Care Time Critical Care Time: No Discharge Plan Discharge Clinical Impression: Acute migraine Instructions: Migraine Headache (ED) Additional Instructions: Take your medications as prescribed. If you were prescribed antibiotics today, it is important that you take your medication to their entirety, do not skip any doses, do not finish them early. Follow-up with your primary care provider this week. Follow up with neurology as soon as possible. Return to the emergency department with new or worsening symptoms. Such as fevers, chills, chest pain, shortness of breath, nausea, vomiting, dizziness, headache, vision changes, lethargy In case of emergency call 911 Please take Reglan and Benadryl together, taking Reglan alone can cause involuntary muscle spasms. Toradol has been sent to your pharmacy, you tolerated this well in the department. Please take this as prescribed do not take this with ibuprofen, or other NSAIDs, do not mix this with alcohol. Side effects of this medication including increased risk for bleeding and possible kidney injury. Prescriptions: New ketorolac 10 mg tablet 10 mg PO TID PRN (Reason: pain) 5 Days Qty: 15 0RF diphenhydramine HCl [Benadryl] 25 mg capsule 25 mg PO TID PRN (Reason: allergic reaction) Qty: 20 0RF metoclopramide HCl [Reglan] 10 mg tablet 10 mg PO Q6H PRN (Reason: headache) Qty: 20 0RF No Action bupropion HCl 75 mg tablet 75 mg PO BID 30 Days Qty: 60 3RF paroxetine HCl 40 mg tablet 40 mg PO DAILY 30 Days Qty: 30 3RF topiramate 100 mg tablet 100 mg PO DAILY Qty: 90 0RF aripiprazole 2 mg tablet 2 mg PO BEDTIME ondansetron 4 mg tablet,disintegrating 4 mg PO Q6-8H PRN (Reason: nausea and vomiting) Qty: 10 0RF zolpidem [Ambien] 5 mg tablet 5 mg PO BEDTIME PRN (Reason: sleep) 30 Days Qty: 15 0RF Rx Instructions: 15 tabs/30 days. MassPat verified. Partial refill upon request. ibuprofen 800 mg tablet 800 mg PO Q8H PRN (Reason: pain) Qty: 30 0RF sumatriptan succinate 50 mg tablet 50 mg PO Q2-4H PRN (Reason: migraine headache) Qty: 15 1RF Rx Instructions: do not exceed 4 doses per 24 hrs hydroxyzine HCl 25 mg/mL solution 25 mg IM Q6H PRN (Reason: Nausea) melatonin 3 mg tablet 3 - 6 mg PO BEDTIME PRN (Reason: Sleep) buspirone 7.5 mg tablet 7.5 mg PO BID docusate sodium [Colace] 100 mg capsule 100 mg PO .bid with food 30 Days Qty: 60 6RF bisacodyl [Dulcolax (bisacodyl)] 5 mg tablet,delayed release (DR/EC) 10 mg PO BEDTIME 30 Days Qty: 60 6RF Caltrate 600 plus D 600 mg-20 mcg (800 unit) tablet,chewable 1 tab PO DAILY Qty: 30 11RF Referrals: [facility] [place] [facility] [place] Group] - 2 days Morteza Ross MD [Primary Care Provider] - 2 days Stand Alone Forms: Work/School Release
[2023-04-23] MEDS: Metoclopramide HCl 10 MG/2 ML VIAL IVPUSH (10:07)
[2023-04-23] MEDS: Ketorolac Tromethamine 15 MG/ML VIAL 30 MG IVPUSH (10:07)
[2023-04-23] MEDS: diphenhydrAMINE HCL 50 MG/ML VIAL IVPUSH (10:07)
[2023-04-23 10:44] VITALS: BP 125/72; PULSE 70; RESP 14; O2SAT 96
--- NOTE | 2023-04-23 11:52 | PC.NURSE ---
pt appears much more comfortable, stating the medications helped her headache and she is ready to go home
== END 2023-04-23 11:54 | disposition home or self-care (01) ==
PROVIDERS: Emergency Provider Emergency Medicine; PCP Family Medicine
DX: G43.909 Migraine, unspecified, not intractable, without status migrainosus (principal); Z79.899 Other long term (current) drug therapy
CPT/HCPCS: 96361; 96374; 96375; 99284; 99285; J1200; J1885; J2765

== ENCOUNTER 2023-06-09 11:08 | Outpatient (AMB) | payer OTHER, SELFPAY ==
[2023-06-09 11:26] VITALS: BP 124/80; PULSE 93; O2SAT 98; BMI 34.1
--- NOTE | 2023-06-09 11:26 | A.OFFPC_ITS ---
Vital Signs 06/09/23 11:26 Height 5 ft 2 in Weight 186 lb 6 oz BMI 34.1 BP 124/80 Blood Pressure Location Lt brachial Position Sitting Pulse 93 Pulse Source Pulse Oximeter Pulse Oximetry (%) 98 Oxygen Delivery Method Room Air Intake Visit Reasons: Discuss referral for neurologist Intake Note: Patient is here to discuss referral for neurology, and left knee pain. She would like refills on headache medicine. Allergies No Known Allergies [No Known Allergies*] Allergy (Verified 06/09/23 11:31) Medication List - Last Reconciled 06/09/23 by Morteza Ross MD aripiprazole 2 mg PO BEDTIME bisacodyl (Dulcolax (bisacodyl)) 10 mg (2 x 5 mg) PO BEDTIME 30 days bupropion HCl 75 mg PO BID 30 days buspirone 7.5 mg PO BID calcium carbonate-vitamin D3 600 mg-20 mcg (800 unit) (Caltrate 600 plus D) 1 tab PO DAILY diphenhydramine HCl (Benadryl) 25 mg PO TID PRN docusate sodium (Colace) 100 mg PO .bid with food 30 days hydroxyzine HCl 25 mg IM Q6H PRN ibuprofen 800 mg PO Q8H PRN ketorolac 10 mg PO TID PRN 5 days melatonin 3 - 6 mg PO BEDTIME PRN metoclopramide HCl (Reglan) 10 mg PO Q6H PRN ondansetron 4 mg PO Q6-8H PRN paroxetine HCl 40 mg PO DAILY 30 days sumatriptan succinate 50 mg PO Q2-4H PRN topiramate 100 mg PO DAILY zolpidem (Ambien) 5 mg PO BEDTIME PRN 30 days Tobacco use date assessed: 09/21/22 Dental Screening Dental Screen Date: 06/09/23 Did you have a dental visit in the last 12 months?: Yes Did you have a dental problem in the last 6 months where you did not have access to dental care?: No Was dental information given to patient?: No HPI Discuss referral for neurologist HPI Details Pt presents to f/u chronic conditions. She would like to discuss a referral for neurology for her migraines. She reports L knee pain today. She reports migraines every other day. [facility] Medical History Anxiety and depression Hx of migraines Sleep apnea Surgical History H/O colonoscopy History of bilateral carpal tunnel release Hx laparoscopic cholecystectomy S/P EDWAR (total abdominal hysterectomy) Family History Father Asthma Mother Dementia Brother No problems noted. Son No problems noted. Son No problems noted. Other Mental health disorder Social History Household Members: Spouse Housing: House Alcohol intake: never Patient Tobacco Use Status: Never used Tobacco e-Cigarette/Vaping Use: Never Used Second Hand Smoke Exposure: No service: No Current occupational status: unemployed Current occupational exposures/hazards: No Cognitive needs: No Hearing needs: No Vision needs: No Review of Systems Const Denies chills, Denies fatigue, Denies fever(s), Denies headache(s) and Denies weakness ENT Denies dizziness and Denies headache(s) Card Denies dyspnea Resp Denies cough, Denies dyspnea, Denies wheezing and Denies other (shortness of breath) Musc Details: L knee pain Denies numbness and Denies tingling Neuro Details: Migraines Denies dizziness, Denies headache(s), Denies numbness, Denies tingling and Denies weakness Psych Denies anxiety and Denies depression Endo Denies fatigue Aller/Immun Denies wheezing Physical exam (Primary Care) Vital Signs: Last Vital Signs Pulse 93 06/09/23 11:26 BP 124/80 06/09/23 11:26 Pulse Ox 98 06/09/23 11:26 Oxygen Delivery Method Room Air 06/09/23 11:26 BMI result Body Mass Index 34.1 Tobacco/Smoking Status: Tobacco use Status Tobacco use date assessed 09/21/22 06/09/23 11:39 Patient Tobacco Use Status Never used Tobacco 06/09/23 11:39 e-Cigarette/Vaping Use Never Used 06/09/23 11:39 Const General: well developed; No acute distress Nutritional Appearance: well nourished Orientation/consciousness: patient oriented x3 HENMT Head: Yes normocephalic and Yes atraumatic Eyes General: appearance normal, both eyes and all related structures Pupils: Equal, round and reactive pupils present EOM: EOMs intact bilaterally Resp Effort & Inspection: normal respiratory effort Neuro General: patient oriented x3 and gait normal Cranial nerves: Yes Equal, round and reactive pupils present Extrem Other: Trace edema and some erythema Psych Affect: normal affect Assessment and Plan Assessment & Plan (1) Migraines: Code(s): G43.909 - Migraine, unspecified, not intractable, without status migrainosus Plan: Worsening migraine headaches Will refer to Neurology. Meantime can increase topiramate and continue sumatriptan episodically (2) Left knee pain: Code(s): M25.562 - Pain in left knee Plan: Her pain of left lower extremity since varicose vein procedure She has trace edema and some erythema. No cords palpated Doubt DVT but will check D-dimer test Possible infection though no discrete wound or nidus inflammation - will treat with a course of cephalexin Elevate leg (3) Swelling of lower extremity: Code(s): M79.89 - Other specified soft tissue disorders Plan: As above Orders: Orders Comprehensive Met. Panel Today G43.909 - Migraine, unspecified, not intractable, without status migrainosus CRP High Sensitivity Today G43.909 - Migraine, unspecified, not intractable, wit hout status migrainosus TSH reflex Free T4 Today G43.909 - Migraine, unspecified, not intractable, without status migrainosus, Z00.00 - Encounter for general adult medical e xamination without abnormal findings Erythrocyte Sedimentation Rate Today G43.909 - Migraine, unspecified, not intractable, without status migrainosus UA and rflx microscopic Today G43.909 - Migraine, unspecified, not intractable, without status migrainosus, Z00.00 - Encounter for general adult medical examination without abnormal findings D Dimer High Sensitivity Today M79.89 - Other specified soft tissue disorders Referrals Neurology Referral G43.909 - Migraine, unspecified, not intractable, without status migrainosus Medications: New cephalexin 500 mg PO Q12H 20 caps 0RF 10 days Changed From topiramate 100 mg PO DAILY 90 tabs 0RF To topiramate 100 mg PO BID 180 tabs 0RF 90 days Coding Level of Care Code Est Pt Level 3 (43760) Diagnoses Migraines G43.909 Left knee pain M25.562 Swelling of lower extremity M79.89
== END 2023-06-09 12:14 | disposition home or self-care (01) ==
PROVIDERS: PCP Family Medicine; Visit Provider Family Medicine
DX: G43.909 Migraine, unspecified, not intractable, without status migrainosus (principal); M25.562 Pain in left knee; M79.89 Other specified soft tissue disorders
CPT/HCPCS: 99213

== ENCOUNTER 2023-06-09 12:05 | Outpatient (REF) | payer OTHER, SELFPAY ==
[2023-06-09 15:31] LABS: Alanine Aminotransferase 24 U/L (0-31); Albumin Level 4.3 g/dL (3.5-5.0); Alkaline Phosphatase 105 U/L (39-117); Anion Gap 14 (12-20); Aspartate Amino Transferase 23 U/L (5-31); Bilirubin Total 0.2 mg/dL (0.0-1.0); Blood Urea Nitrogen 21 mg/dL (9-16); Carbon Dioxide 20 mmol/L (22-29); Chloride 112 mmol/L (96-108); Estimated Glomerular Filt Rate > 60; Glucose Random 83 mg/dL (60-115); Potassium 3.6 mmol/L (3.3-5.1); Sodium 142 mmol/L (135-145); Total Protein 7.5 g/dL (6.5-8.0)
[2023-06-09 15:43] LABS: Erythrocyte Sedimentation Rate 12 MM/HR (0-20)
[2023-06-09 15:47] LABS: TSH reflex Free T4 0.48 uIU/mL (0.32-4.0)
[2023-06-11 19:58] LABS: CRP High Sensitivity 1.9 mg/L
== END 2023-06-09 12:06 | disposition home or self-care (01) ==
LOC: HO.WFDLDS 12:05
PROVIDERS: Visit Provider Family Medicine
DX: Z00.00 Encounter for general adult medical examination without abnormal findings (principal); G43.909 Migraine, unspecified, not intractable, without status migrainosus
CPT/HCPCS: 36415; 80053; 84443; 85652; 86141

== ENCOUNTER 2023-07-20 11:53 | Outpatient (AMB) | payer OTHER, SELFPAY ==
--- NOTE | 2023-07-20 11:55 | A.OFFPC_ITS ---
Vital Signs 07/20/23 11:56 Height 5 ft 2 in Weight 184 lb BMI 33.7 BP 120/62 Blood Pressure Location Lt brachial Position Sitting Pulse 76 Pulse Source Pulse Oximeter Pulse Oximetry (%) 96 Oxygen Delivery Method Room Air Intake Visit Reasons: left swollen knee pain and pressure Intake Note: Patient is here with left swollen knee pain since last time. She tried icing, and elevating, but swelling does not go down. Allergies No Known Allergies [No Known Allergies*] Allergy (Verified 07/20/23 12:00) Tobacco use date assessed: 07/20/23 Dental Screening Dental Screen Date: 07/20/23 Did you have a dental visit in the last 12 months?: Yes Did you have a dental problem in the last 6 months where you did not have access to dental care?: No Was dental information given to patient?: Patient has dentist HPI left swollen knee pain and pressure HPI Details 62 y/o female presents with complaints o f L knee pain. She notes knee pain all the time, and states it worsens when she walks. PFSH Medical History Anxiety and depression Hx of migraines Sleep apnea Surgical History H/O colonoscopy History of bilateral carpal tunnel release S/P EDWAR (total abdominal hysterectomy) Hx laparoscopic cholecystectomy Family History Father Asthma Mother Dementia Brother No problems noted. Son No problems noted. Son No problems noted. Other Mental health disorder Social History Household Members: Spouse Housing: House Alcohol intake: never Patient Tobacco Use Status: Never used Tobacco e-Cigarette/Vaping Use: Never Used Second Hand Smoke Exposure: No service: No Current occupational status: unemployed Current occupational exposures/hazards: No Cognitive needs: No Hearing needs: No Vision needs: No Review of Systems Musc Details: L knee pain Physical exam (Primary Care) Vital Signs: Last Vital Signs Pulse 76 07/20/23 11:56 BP 120/62 07/20/23 11:56 Pulse Ox 96 07/20/23 11:56 Oxygen Delivery Method Room Air 07/20/23 11:56 BMI result Body Mass Index 33.7 Tobacco/Smoking Status: Tobacco use Status Tobacco use date assessed 07/20/23 07/20/23 12:09 Patient Tobacco Use Status Never used Tobacco 07/20/23 11:55 e-Cigarette/Vaping Use Never Used 07/20/23 11:55 Extrem Other: Pre and peripatellar effusion w/o significant warmth or erythema Pain with movement of leg and minimal swelling of leg/calf with no erythema and no cords Assessment and Plan Assessment & Plan (1) Left knee pain: Code(s): M25.562 - Pain in left knee Plan: Pre and peripatellar effusion without significant warmth or erythema. Pain with movement of leg and minimal swelling of leg or calf with no erythema and no cords. Lab work showed no systemic inflammation and white count was within normal limits so doubt infection. Possible knee joint arthritis or posterior patellar arthritis. Will check x-rays Can trial prednisone/NSAID Ice/heat Will refer to ortho (2) Knee swelling: Code(s): M25.469 - Effusion, unspecified knee Plan: As above Orders: Orders XR knee LT 4V Today M25.469 - Effusion, unspecified knee, M25.562 - Pain in left knee Referrals Orthopedics Referral M25.562 - Pain in left knee Medications: New prednisone 40 mg (2 x 20 mg) PO DAILY 10 tabs 0RF 5 days meloxicam 15 mg PO DAILY 30 tabs 0RF 30 days Coding Level of Care Code Est Pt Level 3 (14151) Diagnoses Left knee pain M25.562 Knee swelling M25.469
[2023-07-20 11:56] VITALS: BP 120/62; PULSE 76; O2SAT 96; BMI 33.7
== END 2023-07-20 12:30 | disposition home or self-care (01) ==
PROVIDERS: PCP Family Medicine; Visit Provider Family Medicine
DX: M25.562 Pain in left knee (principal); M25.469 Effusion, unspecified knee
CPT/HCPCS: 99213

== ENCOUNTER 2023-07-20 12:56 | Outpatient (REF) | payer OTHER, SELFPAY ==
--- NOTE | ~2023-07-20 | XR_ITS ---
EXAMINATION: XR KNEE, LEFT CLINICAL INFORMATION: Left knee pain. COMPARISON: None available. TECHNIQUE: Four views of the left knee. FINDINGS: Mild medial knee joint narrowing. Patellofemoral and lateral knee compartments are maintained. No fracture or dislocation. Alignment is normal. No suprapatellar effusion. XR/XR knee LT 4V IMPRESSION: Mild degenerative change.
== END 2023-07-20 12:57 | disposition home or self-care (01) ==
LOC: HO.XRAY 12:56
PROVIDERS: PCP Family Medicine; Visit Provider Family Medicine
DX: M25.562 Pain in left knee (principal); M25.462 Effusion, left knee
CPT/HCPCS: 73564

== ENCOUNTER 2023-08-11 07:49 | Outpatient (AMB) | payer OTHER, SELFPAY ==
[2023-08-11 07:57] VITALS: BMI 33.7
--- NOTE | 2023-08-11 07:57 | A.OFFVIS_ITS ---
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 She describes her pain as sharp in nature. She did injure her left knee approximately 1 year ago. She twisted her knee and had acute onset of pain. Since that time her symptoms have gotten worse in spite of continued non operative treatments. She has done physical therapy for 12 weeks over the last 6 months which aggravated her pain. She has also tried Tylenol and anti-inflammatory medicines which gave her minimal relief. She has tried Tylenol and anti-inflammatory medicines which gave her only mild relief. She has also tried wearing a knee brace which did not help her symptoms. She states that her left knee will give out several times per day. Allergies No Known Allergies [No Known Allergies*] Allergy (Verified 08/11/23 08:02) Medication List - Last Reconciled 08/11/23 by Vinny Vazquez MD aripiprazole 2 mg PO BEDTIME bisacodyl (Dulcolax (bisacodyl)) 10 mg (2 x 5 mg) PO BEDTIME 30 days bupropion HCl 75 mg PO BID 30 days buspirone 7.5 mg PO BID calcium carbonate-vitamin D3 600 mg-20 mcg (800 unit) (Caltrate 600 plus D) 1 tab PO DAILY diphenhydramine HCl (Benadryl) 25 mg PO TID PRN docusate sodium (Colace) 100 mg PO .bid with food 30 days hydroxyzine HCl 25 mg IM Q6H PRN ibuprofen 800 mg PO Q8H PRN ketorolac 10 mg PO TID PRN 5 days melatonin 3 - 6 mg PO BEDTIME PRN meloxicam 15 mg PO DAILY 30 days metoclopramide HCl (Reglan) 10 mg PO Q6H PRN ondansetron 4 mg PO Q6-8H PRN paroxetine HCl 40 mg PO DAILY 30 days prednisone 40 mg (2 x 20 mg) PO DAILY 5 days propranolol 20 mg PO ONCE sumatriptan succinate 50 mg PO Q2-4H PRN zolpidem (Ambien) 5 mg PO BEDTIME PRN 30 days REPLACED BY [facility] Medical History Anxiety and depression Hx of migraines Sleep apnea Surgical History H/O colonoscopy History of bilateral carpal tunnel release S/P EDWAR (total abdominal hysterectomy) Hx laparoscopic cholecystectomy Family History Father Asthma Mother Dementia Brother No problems noted. Son No problems noted. Son No problems noted. Other Mental health disorder Social History Household Members: Spouse Housing: House Alcohol intake: never Patient Tobacco Use Status: Never used Tobacco e-Cigarette/Vaping Use: Never Used Second Hand Smoke Exposure: No service: No Current occupational status: unemployed Current occupational exposures/hazards: No Cognitive needs: No Hearing needs: No Vision needs: No Physical Exam Vital Signs: BMI result Body Mass Index 33.7 Const Other: Well-nourished well-developed very friendly female awake alert and oriented x3 in no acute distress Extrem Other: Bilateral lower extremity examination shows good capillary refill, no skin lesions noted, normal sensation light touch Left knee examination shows a minimal effusion, minimal crepitus with range of motion, tenderness along her medial joint line, positive Bibiana's test, no instability Results Reviewed Results Reviewed: X-rays of the patient's left knee show mild diffuse joint space narrowing, no acute bony abnormalities Assessment & Plan Assessment & Plan (1) Left knee pain: Code(s): M25.562 - Pain in left knee Plan: Ms. Benito presents with progressively worsening left knee pain and mechanical symptoms most likely due to a tear of her medial meniscus. Thus, I will send the patient for an MRI of her left knee for further evaluation. I will see her back once the MRI is completed to discuss the findings and treatment options. Feel free to call me at any time should questions regarding her orthopedic management arise. Thank you very much for asking me to see this very friendly patient. I spent 22 minutes in reviewing the patient's records and imaging studies, seeing the patient and documenting in the medical record. Orders: Orders MR knee LT wo con Today M25.562 - Pain in left knee Coding Level of Care Code New Pt Level 2 (46558) Diagnoses Left knee pain M25.562
== END 2023-08-11 08:26 | disposition home or self-care (01) ==
PROVIDERS: PCP Family Medicine; Visit Provider Orthopaedic Surgery
DX: M25.562 Pain in left knee (principal)
CPT/HCPCS: 99202

== ENCOUNTER → 2023-08-11 07:49 | Outpatient (BNVA) | payer OTHER, SELFPAY | PROVIDERS: PCP Family Medicine; Visit Provider Orthopaedic Surgery | DX: M25.562 Pain in left knee (principal) | CPT/HCPCS: 99202 ==

== ENCOUNTER 2023-09-13 14:31 | Outpatient (REF) | payer OTHER, SELFPAY ==
--- NOTE | ~2023-09-13 | MR_ITS ---
EXAMINATION: MR KNEE WITHOUT CONTRAST, LEFT CLINICAL INFORMATION: Knee pain and swelling. COMPARISON: X-ray 07/20/2023. TECHNIQUE: MRI of the knee without contrast was performed using routine sequences on a high-field scanner. FINDINGS: MENISCI: Medial Meniscus: Intact. Lateral Meniscus: Mild degenerative fraying of the anterior root. No meniscal tear otherwise seen. LIGAMENTS: Cruciate: T2 signal in the posterior fibers of the ACL, likely mucoid degeneration. Intact PCL. Collateral: Intact. EXTENSOR MECHANISM: Intact. ARTICULAR CARTILAGE/BONE: Patellofemoral Compartment: There is cartilage thinning and fissuring in the central patella/median ridge. Medial Compartment: Foci of mild cartilage thinning and heterogeneity in the weightbearing femur. Lateral Compartment: Mild cartilage thinning and heterogeneity in the weightbearing femur. No fracture. JOINT FLUID AND BURSAE: Small joint fluid. No significant Patton's cyst. Mild semimembranosus tendinosis. Popliteus muscle and tendon are intact. MR/MR knee LT wo con IMPRESSION: 1. Mild degenerative fraying of the anterior root of the lateral meniscus. 2. ACL probable mucoid degeneration. 3. Mild tricompartment arthritis. 4. Mild semimembranosus tendinosis.
== END 2023-09-13 14:32 | disposition home or self-care (01) ==
LOC: HO.MRI 14:31
PROVIDERS: PCP Family Medicine; Visit Provider Orthopaedic Surgery
DX: M25.562 Pain in left knee (principal)
CPT/HCPCS: 73721

== ENCOUNTER 2023-09-21 08:29 | Outpatient (AMB) | payer OTHER, SELFPAY ==
--- NOTE | 2023-09-21 08:47 | A.OFFVIS_ITS ---
Intake Vital Signs 09/21/23 08:48 Height 5 ft 2 in Weight 184 lb BMI 33.7 Intake Visit Reasons: OV-Left Knee- MRI review Intake Note: Lisa is a 63 year old female who presents today as a new patient for a evaluation for her left knee pain and giving way. She describes her pain as sharp in nature. She did injure her left knee approximately 1 year ago. She twisted her knee and had acute onset of pain. Since that time her symptoms have gotten worse in spite of continued non operative treatments. She has done physical therapy for 12 weeks over the last 6 months which aggravated her pain. She has also tried Tylenol and anti-inflammatory medicines which gave her minimal relief. She has tried Tylenol and anti-inflammatory medicines which gave her only mild relief. She has also tried wearing a knee brace which did not help her symptoms. She states that her left knee will give out several times per day. Allergies No Known Allergies [No Known Allergies*] Allergy (Verified 09/21/23 08:49) Medication List - Last Reconciled 09/21/23 by Vinny Vazquez MD aripiprazole 2 mg PO BEDTIME bisacodyl (Dulcolax (bisacodyl)) 10 mg (2 x 5 mg) PO BEDTIME 30 days bupropion HCl 75 mg PO BID 30 days buspirone 7.5 mg PO BID calcium carbonate-vitamin D3 600 mg-20 mcg (800 unit) (Caltrate 600 plus D) 1 tab PO DAILY diphenhydramine HCl (Benadryl) 25 mg PO TID PRN docusate sodium (Colace) 100 mg PO .bid with food 30 days hydroxyzine HCl 25 mg IM Q6H PRN ibuprofen 800 mg PO Q8H PRN ketorolac 10 mg PO TID PRN 5 days melatonin 3 - 6 mg PO BEDTIME PRN meloxicam 15 mg PO DAILY 30 days metoclopramide HCl (Reglan) 10 mg PO Q6H PRN ondansetron 4 mg PO Q6-8H PRN paroxetine HCl 40 mg PO DAILY 30 days prednisone 40 mg (2 x 20 mg) PO DAILY 5 days propranolol 20 mg PO ONCE sumatriptan succinate 50 mg PO Q2-4H PRN topiramate 25 mg PO DAILY 30 days zolpidem (Ambien) 5 mg PO BEDTIME PRN 30 days PFSH Medical History Anxiety and depression Hx of migraines Sleep apnea Surgical History H/O colonoscopy History of bilateral carpal tunnel release S/P EDWAR (total abdominal hysterectomy) Hx laparoscopic cholecystectomy Family History Father Asthma Mother Dementia Brother No problems noted. Son No problems noted. Son No problems noted. Other Mental health disorder Social History Household Members: Spouse Housing: House Alcohol intake: never Patient Tobacco Use Status: Never used Tobacco e-Cigarette/Vaping Use: Never Used Second Hand Smoke Exposure: No service: No Current occupational status: unemployed Current occupational exposures/hazards: No Cognitive needs: No Hearing needs: No Vision needs: No Physical Exam Vital Signs: BMI result Body Mass Index 33.7 Const Other: Well-nourished well-developed very friendly female awake alert and oriented x3 in no acute distress Lungs - clear to auscultation bilaterally with symmetric expansion Cardiovascular exam - regular rate and rhythm Abdominal exam - soft nontender nondistended Extrem Other: Bilateral lower extremity examination shows good capillary refill, no skin lesions noted, normal sensation light touch Left knee examination shows a minimal effusion, minimal crepitus with range of motion, tenderness along her medial joint line, positive Bibiana's test, no instability Results Reviewed Results Reviewed: MRI of the patient's left knee shows mild diffuse degenerative changes as well as a tear of the medial meniscus, no acute bony abnormalities Assessment & Plan Assessment & Plan (1) Left knee pain: Code(s): M25.562 - Pain in left knee Plan Ms. Benito presents with left knee pain and mechanical symptoms due to a tear of her medial meniscus. I had a lengthy discussion with the patient regarding the treatment options. At this point she has failed continued non operative treatments. The risks and benefits of left knee arthroscopic surgery were discussed at length with the patient. The patient wishes to proceed. Surgery will most likely involve left knee diagnostic arthroscopy with partial medial meniscectomy. The patient does understand that she may not get 100% relief of her symptoms depending on the severity of her degenerative changes. The patient will contact my office to pick a surgery date. She will follow-up as instructed. Feel free to call me at any time should questions regarding her orthopedic management arise. I spent 22 minutes in reviewing the patient's records and imaging studies, see ing the patient and documenting in the medical record. Coding Level of Care Code Est Pt Level 2 (74257) Diagnoses Left knee pain M25.562
[2023-09-21 08:48] VITALS: BMI 33.7
== END 2023-09-21 09:14 | disposition home or self-care (01) ==
PROVIDERS: PCP Family Medicine; Visit Provider Orthopaedic Surgery
DX: M25.562 Pain in left knee (principal)
CPT/HCPCS: 99212

== ENCOUNTER → 2023-09-21 08:29 | Outpatient (BNVA) | payer OTHER, SELFPAY | PROVIDERS: PCP Family Medicine; Visit Provider Orthopaedic Surgery | DX: M25.562 Pain in left knee (principal) | CPT/HCPCS: 99212 ==

== ENCOUNTER 2023-10-22 10:50 | Day surgery (SDC) | payer OTHER, SELFPAY ==
[2023-10-20 07:39] VITALS: BMI 33.7
--- NOTE | 2023-10-21 10:11 | P.CONAN_ITS ---
Documented by User: Ria Stephenson NP 10/21/23 10:15 HPI - Anesthesia Eval Consult details Narrative: 63yo F for Left Knee Arthroscopy partial medial meniscectomy, possible lateral meniscectomy PMFSH Active Problems Active Problems: All Active Problems (Updated 06/09/23 @ 11:59 by Hamilton Zuñiga) Swelling of lower extremity (Acute) Left knee pain (Acute) Chronic idiopathic constipation (Acute) H/O colonoscopy (Acute) Depression (Acute) Migraines (Acute) Overweight (BMI 25.0-29.9) (Acute) Insomnia (Acute) Breast cancer screening by mammogram (Acute) Screening for colon cancer (Acute) Screening for cervical cancer (Acute) Adult general medical exam (Acute) Sleep disorder (Acute) Snoring (Acute) Mild obstructive sleep apnea (Acute) Anxiety with depression (Acute) Toe pain (Acute) Dyspnea on exertion (Acute) Family history of coronary artery disease (Acute) Constipation (Acute) Pre-op examination (Acute) Varicose veins of bilateral lower extremities with pain (Acute) Past Medical History Medical History Anxiety and depression Hx of migraines Sleep apnea Family History Family History Father Asthma Mother Dementia Brother No problems noted. Son No problems noted. Son No problems noted. Other Mental health disorder Surgical History Surgical History H/O colonoscopy History of bilateral carpal tunnel release S/P EDWAR (total abdominal hysterectomy) Hx laparoscopic cholecystectomy History of Problems with Anesthesia: No Social History Social History Household Members: Spouse Housing: House Alcohol intake: never Patient Tobacco Use Status: Never used Tobacco e-Cigarette/Vaping Use: Never Used Second Hand Smoke Exposure: No service: No Current occupational status: unemployed Current occupational exposures/hazards: No Cognitive needs: No Hearing needs: No Vision needs: No Meds Allergies Allergy/AdvReac Type Severity Reaction Status Date / Time No Known Allergies Allergy Verified 09/21/23 08:49 [No Known Allergies*] Active Medications: Current Medications Cefazolin Sodium/Dextrose (Ancef) 2 gm in 50 mls @ 100 mls/hr IV PREOP ONE Stop: 10/22/23 07:22 Home Medications Medication Instructions Recorded Confirmed Last Taken Type hydroxyzine HCl 25 mg/mL 25 mg IM Q6H PRN Nausea 08/06/20 09/21/23 Unknown History intramuscular solution buspirone 7.5 mg tablet 7.5 mg PO BID 07/24/22 09/21/23 Unknown History melatonin 3 mg tablet 3 - 6 mg PO BEDTIME PRN Sleep 07/24/22 09/21/23 Unknown History aripiprazole 2 mg tablet 2 mg PO BEDTIME 12/22/22 09/21/23 Unknown History propranolol 20 mg tablet 20 mg PO ONCE 07/20/23 09/21/23 Unknown History Exam Height,Weight and Vital Signs: Height 5 ft 2 in Weight 83.461 kg Pertinent Lab Results Pertinent Lab Results: Laboratory Tests 11/27/22 11/27/22 06/09/23 20:01 20:01 12:06 WBC 7.0 Hgb 13.8 Hct 40.5 Plt Count 293 Sodium Potassium 3.6 Chloride Carbon Dioxide BUN Creatinine 06/09/23 12:06 WBC Hgb Hct Plt Count Sodium 142 Potassium Chloride 112 H Carbon Dioxide 20 L BUN 21 H Creatinine 0.83 Assessment and Plan Assessment Anesthesia Assessment: Chart Reviewed Final Anesthetic Review History of Problems with Anesthesia: No Documented by User: Migue Montoya MD 10/22/23 10:46 [facility] Past Medical History Medical History Anxiety and depression Hx of migraines Sleep apnea Family History Family History Father Asthma Mother Dementia Brother No problems noted. Son No problems noted. Son No problems noted. Other Mental health disorder Family history of problems with anesthesia: No Surgical History Surgical History H/O colonoscopy History of bilateral carpal tunnel release S/P EDWAR (total abdominal hysterectomy) Hx laparoscopic cholecystectomy Social History Social History Household Members: Spouse Housing: House Alcohol intake: never Patient Tobacco Use Status: Never used Tobacco e-Cigarette/Vaping Use: Never Used Second Hand Smoke Exposure: No service: No Current occupational status: unemployed Current occupational exposures/hazards: No Cognitive needs: No Hearing needs: No Vision needs: No Meds Allergies Allergy/AdvReac Type Severity Reaction Status Date / Time No Known Allergies Allergy Verified 09/21/23 08:49 [No Known Allergies*] Home Medications Medication Instructions Recorded Confirmed Last Taken Type hydroxyzine HCl 25 mg/mL 25 mg IM Q6H PRN Nausea 08/06/20 09/21/23 Unknown History intramuscular solution buspirone 7.5 mg tablet 7.5 mg PO BID 07/24/22 09/21/23 Unknown History melatonin 3 mg tablet 3 - 6 mg PO BEDTIME PRN Sleep 07/24/22 09/21/23 Unknown History aripiprazole 2 mg tablet 2 mg PO BEDTIME 12/22/22 09/21/23 Unknown History propranolol 20 mg tablet 20 mg PO ONCE 07/20/23 09/21/23 Unknown History Exam Airway Mallampati Class: II TM Dist: >3cm Neck ROM: Limited Heart: rrr Lungs: cta Assessment and Plan Assessment Anesthesia Assessment: Anesthesia Plan Discussed Final Anesthetic Review Family History of Problems with Anesthesia: No NPO: Yes ASA Class: II Final Preanesthetic Review: No Changes in Pt Med Stat, Meds/Allgs Chart Reviewed, Consent Obtained/Reviewed and Anes Risks/Benef Reviewed Patient Risk: Intermediate Procedure Risk: Intermediate Anesthetic Plan Anesthetic Plan: GA and Agree w/ Assess. and Plan Disposition: Standard PACU
[2023-10-22] VITALS (12 sets, daily range): BP systolic 128–158; BP diastolic 74–86; PULSE 58–70; RESP 9–22; TEMP 36.2–36.6; O2SAT 94–100; BMI 32.9
[2023-10-22] MEDS: Lactated Ringers 1,000 ML 100 ML IVCONT (11:36)
--- NOTE | 2023-10-22 14:25 | P.OP_ITS ---
Operative Note Operative Note Date of Service: 10/22/23 Narrative: After the patient was identified as Lisa Benito and her left knee was initialed by myself they were brought to the operating room where general anesthesia was induced by the anesthesiologist in routine fashion. The patient was given 2 g of IV Ancef preoperatively for infection prophylaxis. The patient's left lower extremity was prepped and draped in sterile fashion. A formal time-out was completed. Marcaine was injected into the planned incision sites as well as the patient's left knee joint. A #11 scalpel blade was used to make an anterolateral portal 1 cm proximal to the joint line and 1 cm lateral to the patellar tendon. Blunt trocar technique was used to enter the suprapatellar pouch with the knee in extension. Diagnostic arthroscopy showed multiple bands of thickened plica which would be excised at the end of the procedure. There were no loose bodies or abnormalities found in either the medial or lateral gutters. The articular surface of the patella showed diffuse grades 1 and 2 degenerative changes. The trochlear groove articular surface showed diffuse grade 1 degenerative changes. The patient's knee was flexed to 45 degrees and a valgus force was placed upon it. The medial compartment was entered. An anteromedial portal was made 1 cm proximal to the joint line and 1 cm medial to the patellar tendon. Probing of the medial meniscus showed a radial tear of the anterior horn. A partial medial meniscectomy was performed using the arthroscopic shaver. Following the partial meniscectomy the remainder of the meniscus tissue was stable. There were diffuse grade 1 degenerative changes of the medial femoral condyle as well as grade 1 degenerative changes of the medial tibial plateau. The patient's knee was placed into a neutral position. There was no injury to the anterior cruciate ligament. The patient's knee was then placed in the figure of 4 position and the lateral compartment was entered. There was no evidence of lateral meniscus tearing. There were minimal dege nerative changes of the lateral femoral condyle and lateral tibial plateau. The patient's knee was once again brought into extension and the suprapatellar pouch was entered. The arthroscopic shaver and the ArthroCare Wand were used to excise the thickened bands of plica. The undersurface of the patella was then made smooth using the arthroscopic shaver. The articular surface of the trochlear groove was already smooth so no chondroplasty was indicated. The knee joint was irrigated and then drained. All arthroscopic instruments were removed. The 2 portals were closed with 3-0 nylon interrupted suture. The knee joint was injected with Marcaine. Dry sterile dressing and Nii bandages were placed over the patient's knee. The patient was awoken and extubated in the operating room. The patient was transferred to the recovery room in stable condition.
--- NOTE | 2023-10-22 14:25 | PM.OP ---
Brief Operative Note Date of Service: 10/22/23 Pre-op diagnosis: Left knee medial meniscus tear Post-op diagnosis: same Procedure: Left knee diagnostic arthroscopy with left knee arthroscopic partial medial meniscectomy Implants: None Surgeon: Vinny Vazquez MD Anesthesia: GLMA Was an Net Wpf Developer used for this Procedure?: No Estimated blood loss (mL): 10 Pathology: none sent Condition: stable Disposition: PACU
[2023-10-22] MEDS: fentaNYL citrate/PF 100 MCG/2 ML VIAL 25 MCG IVPUSH ×4 (14:33→14:48)
[2023-10-22] MEDS: oxyCODONE HCl Immed Release 5 MG TABLET PO (14:35)
[2023-10-22] MEDS: cefTRIAXone sodium 1 GM in 0.9 % Sodium Chloride 50 ML IV (14:54)
== END 2023-10-22 16:55 | disposition home or self-care (01) ==
PROVIDERS: PCP Family Medicine; Visit Provider Orthopaedic Surgery
PROC: (CPT 29870; principal; 2023-10-22 12:50)
DX: S83.242A Other tear of medial meniscus, current injury, left knee, initial encounter (principal); M25.362 Other instability, left knee; M17.12 Unilateral primary osteoarthritis, left knee; M67.52 Plica syndrome, left knee; X50.1XXA Overexertion from prolonged static or awkward postures, initial encounter; Y93.9 Activity, unspecified; Y92.9 Unspecified place or not applicable; Y99.9 Unspecified external cause status; F41.8 Other specified anxiety disorders; G47.33 Obstructive sleep apnea (adult) (pediatric); Z79.899 Other long term (current) drug therapy; Z79.1 Long term (current) use of non-steroidal anti-inflammatories (NSAID)
CPT/HCPCS: 29881; J0131; J0171; J0690; J0696; J1100; J1885; J2405; J2704; J2795; J3010

== ENCOUNTER → 2023-10-22 10:50 | Outpatient (BNV) | payer OTHER, SELFPAY | PROVIDERS: PCP Family Medicine; Visit Provider Orthopaedic Surgery | DX: S83.241A Other tear of medial meniscus, current injury, right knee, initial encounter (principal) | CPT/HCPCS: 29881 ==

== ENCOUNTER 2023-11-02 09:07 | Outpatient (AMB) | payer OTHER, SELFPAY ==
--- NOTE | 2023-11-02 09:09 | MHC.OFFVIS ---
Intake Intake Visit Reasons: PO-Lt Knee 10/22 Intake Note: Lisa is a 63 year old female who presents today for a post op visit s/p Left Knee 10/22/2023. Sutures removed, steris applied The patient reports mild intermittent discomfort in her left knee. She is no longer taking any medicine for discomfort. She denies any fevers or chills. Allergies No Known Allergies [No Known Allergies*] Allergy (Verified 10/22/23 11:22) PFSH Medical History Anxiety and depression Hx of migraines Sleep apnea Surgical History H/O colonoscopy History of bilateral carpal tunnel release S/P EDWAR (total abdominal hysterectomy) Hx laparoscopic cholecystectomy Family History Father Asthma Mother Dementia Brother No problems noted. Son No problems noted. Son No problems noted. Other Mental health disorder Social History Household Members: Spouse Housing: House Alcohol intake: never Patient Tobacco Use Status: Never used Tobacco e-Cigarette/Vaping Use: Never Used Second Hand Smoke Exposure: No service: No Current occupational status: unemployed Current occupational exposures/hazards: No Cognitive needs: No Hearing needs: No Vision needs: No Physical Exam Extrem Other: Left knee examination shows that the surgical incisions are healing well, no erythema, minimal discomfort with range of motion, full range of motion when compared to her right knee Assessment & Plan Assessment & Plan (1) Left knee pain: Code(s): M25.562 - Pain in left knee Plan: Ms. Benito presents for her 1st postoperative visit after undergoing left knee arthroscopic surgery on 10/22/2023. Her sutures were removed and Steri-Strips placed over her incisions. She will gradually progress to activities as tolerated. She will contact me prior to her follow-up appointment in 3 months should any questions or concerns arise. Feel free to call me at any time should questions regarding her orthopedic management arise. Coding Level of Care Code Global (97670) Diagnoses Left knee pain M25.562
== END 2023-11-02 09:22 | disposition home or self-care (01) ==
PROVIDERS: PCP Family Medicine; Visit Provider Orthopaedic Surgery
DX: M25.562 Pain in left knee (principal)
CPT/HCPCS: 99024

== ENCOUNTER → 2023-11-02 09:07 | Outpatient (BNVA) | payer OTHER, SELFPAY | PROVIDERS: PCP Family Medicine; Visit Provider Orthopaedic Surgery | DX: M25.562 Pain in left knee (principal) | CPT/HCPCS: 99212 ==

== ENCOUNTER 2024-01-19 11:06 | Outpatient (AMB) | payer OTHER, SELFPAY ==
--- NOTE | 2024-01-19 11:30 | AM.OFFWIN_ITS ---
Intake Vital Signs 01/19/24 11:32 Height 5 ft 2 in Weight 182 lb BMI 33.3 BP 110/78 Blood Pressure Location Lt brachial Position Sitting Pulse 69 Pulse Source Pulse Oximeter Temp 97.1 F Temp Source Temporal Artery Scan Pulse Oximetry (%) 96 Oxygen Delivery Method Room Air Intake Visit Reasons: EP RT arm Spasm Intake Note: pt is here today for rt arm spasm started 3 weeks ago Patient Tobacco Use Status: Never used Tobacco Allergies No Known Allergies [No Known Allergies*] Allergy (Verified 01/19/24 11:31) Do you need a note to return to daycare/school/sports/work: No HPI HPI Comments History of Present Illness Details 63 y/o female patient who presents to ct marty in clinic with c/o right shoulder pain x 1 week. Denies injury or trauma. Reports pain radiating down to fingers with Spasm. She has Limited ROM due to pain. Pt asking for referral to Orthopedics.She is unable to see her PCP due to a long wait list. [facility] Medical History Anxiety and depression Hx of migraines Sleep apnea Surgical History H/O colonoscopy History of bilateral carpal tunnel release S/P EDWAR (total abdominal hysterectomy) Hx laparoscopic cholecystectomy Family History Father Asthma Mother Dementia Brother No problems noted. Son No problems noted. Son No problems noted. Other Mental health disorder Social History Household Members: Spouse Housing: House Alcohol intake: never Patient Tobacco Use Status: Never used Tobacco e-Cigarette/Vaping Use: Never Used Second Hand Smoke Exposure: No service: No Current occupational status: unemployed Current occupational exposures/hazards: No Cognitive needs: No Hearing needs: No Vision needs: No Review of Systems Const All systems reviewed & are unremarkable except as noted in HPI and below Physical Exam Vital Signs: Last Vital Signs Temp 97.1 F 01/19/24 11:32 Pulse 69 01/19/24 11:32 BP 110/78 01/19/24 11:32 Pulse Ox 96 01/19/24 11:32 Oxygen Delivery Method Room Air 01/19/24 11:32 BMI result Body Mass Index 33.3 Const General: comfortable and no acute distress Orientation/consciousness: patient oriented x3 Neuro General: patient oriented x3, gait normal and moves all extremities Extrem Right upper extremity: shoulder/upper arm (right shoulder Limited ROM due to pain) Details: tenderness Location: of the proximal humerus; no swelling Left upper extremity: normal to inspection Psych Speech and movement: Normal speech and movement present Assessment & Plan Assessment & Plan (1) Right shoulder pain: Code(s): M25.511 - Pain in right shoulder Qualifiers: Chronicity: acute Qualified Code(s): M25.511 - Pain in right shoulder Plan: - Shoulder Xray - Referral to Ortho Orders: Orders XR shoulder RT min 2V Today M25.511 - Pain in right shoulder Referrals Orthopedics Referral M25.511 - Pain in right shoulder Medications: New cyclobenzaprine 10 mg PO BEDTIME 14 tabs 0RF M25.511 - Pain in right shoulder Refilled ibuprofen 800 mg PO Q8H PRN 30 tabs 0RF pain M25.511 - Pain in right shoulder Discontinued ketorolac Discontinued Reason: Patient Completed Course 10 mg PO TID 5 days PRN 15 tabs 0RF pain Coding Level of Care Code Est Pt Level 3 (34565) Diagnoses Acute pain of right shoulder M25.511 Chronicity: acute Time Spent (min) 15
[2024-01-19 11:32] VITALS: BP 110/78; PULSE 69; TEMP 36.2; O2SAT 96; BMI 33.3
== END 2024-01-19 12:22 | disposition home or self-care (01) ==
PROVIDERS: PCP Family Medicine; Visit Provider Nurse Practitioner Family
DX: M25.511 Pain in right shoulder (principal)
CPT/HCPCS: 99213

== ENCOUNTER 2024-01-19 12:01 | Outpatient (REF) | payer OTHER, SELFPAY ==
--- NOTE | ~2024-01-19 | XR_ITS ---
EXAMINATION: XR SHOULDER, RIGHT CLINICAL INFORMATION: Right shoulder pain COMPARISON: None available. TECHNIQUE: Three views of the right shoulder. FINDINGS: No acute fracture or malalignment. Mild acromioclavicular osteoarthritis. Degenerative spurring of the greater tuberosity. No glenohumeral joint space narrowing. No suspicious bone lesion or soft tissue calcification. XR/XR shoulder RT min 2V IMPRESSION: Mild acromioclavicular and glenohumeral osteoarthritis. No acute osseous abnormality.
== END 2024-01-19 12:02 | disposition home or self-care (01) ==
LOC: HO.HMGCX 12:01
PROVIDERS: Visit Provider Nurse Practitioner Family
DX: M25.511 Pain in right shoulder (principal)
CPT/HCPCS: 73030

== ENCOUNTER 2024-01-31 08:49 | Outpatient (AMB) | payer OTHER, SELFPAY ==
[2024-01-31 08:52] VITALS: BP 110/68; PULSE 70; O2SAT 99; BMI 33.1
--- NOTE | 2024-01-31 08:52 | A.OFFPC_ITS ---
Vital Signs 01/31/24 08:52 Height 5 ft 2 in Weight 181 lb BMI 33.1 BP 110/68 Blood Pressure Location Lt brachial Position Sitting Pulse 70 Pulse Source Pulse Oximeter Pulse Oximetry (%) 99 Oxygen Delivery Method Room Air Intake Visit Reasons: Est. Care Intake Note: Pt is here to est care Allergies No Known Allergies [No Known Allergies*] Allergy (Verified 01/31/24 09:12) Medication List - Last Reconciled 01/31/24 by ATUL Lilly ibuprofen 800 mg PO Q8H PRN lorazepam 1 mg PO DAILY PRN paroxetine HCl mg PO propranolol 20 mg PO ONCE sumatriptan succinate 50 mg PO Q2-4H PRN topiramate 25 mg PO DAILY 30 days Tobacco use date assessed: 01/31/24 Dental Screening Dental Screen Date: 01/31/24 Did you have a dental visit in the last 12 months?: Yes Did you have a dental problem in the last 6 months where you did not have access to dental care?: No Was dental information given to patient?: Patient has dentist HPI HPI Comments History of Present Illness Details Patient is a 63-year-old female who I am meeting for the 1st time. She was seen in our walk-in 2 weeks prior for right shoulder pain, was given an x- ray which demonstrated osteoarthritis, and was also given referral to [facility] where she had previous work on her left knee. Patient has a past medical history significant for depression and anxiety, plantar fasciitis of the left foot, sleep apnea, and chronic migraines. Patient has establish care with therapist and psychiatric provider. She has establish care at [facility] with a neurologist for chronic migraines. Patient would like physical therapy for plantar fasciitis of left foot, will refer. Patient states that she has strong family history of asthma and has started to feel chest/airway tightness with exercise, especially going up stairs. Will prescribe albuterol sulfate and Symbicort to be taken as directed. Patient's last colonoscopy was in 2022, negative scope repeat in 10 years. Patient has establish care with OBGYN. Due for mammogram, will refer. [facility] Medical History (Updated 01/31/24 @ 09:54 by ATUL Lilly) Sleep apnea Anxiety and depression Hx of migraines Surgical History H/O colonoscopy History of bilateral carpal tunnel release S/P EDWAR (total abdominal hysterectomy) Hx laparoscopic cholecystectomy Family History Father Asthma Mother Dementia CHF (congestive heart failure) Brother No problems noted. Son No problems noted. Son No problems noted. Other Mental health disorder Social History Household Members: Spouse Housing: House Alcohol intake: never Patient Tobacco Use Status: Never used Tobacco e-Cigarette/Vaping Use: Never Used Second Hand Smoke Exposure: No service: No Current occupational status: unemployed Current occupational exposures/hazards: No Cognitive needs: No Hearing needs: No Vision needs: No Questionnaire PHQ-9 Over the last 2 weeks, how often have you been bothered by any of the following problems? 1. Little interest or pleasure in doing things: several days 2. Feeling down, depressed, or hopeless: several days 3. Trouble falling or staying asleep, or sleeping too much: several days 4. Feeling tired or having little energy: several days 5. Poor appetite or overeating: several days 6. Feeling bad about yourself - or that you are a failure or have let yourself o r your family down: several days 7. Trouble concentrating on things, such as reading the newspaper or watching television: more than half the days 8. Moving or speaking so slowly that other people could have noticed. Or the opposite - being so fidgety or restless that you have been moving around a lot more than usual: several days 9. Thoughts that you would be better off or of hurting yourself in some way: not at all Total score: 9 Depression Screening Interpretation: Negative Depression Screening Done: Yes 30848 - PHQ-9 Billing: Yes Source: Developed by Drs. Minh Fraser, Naty Jesus, Stewart Mroa and colleagues, with an educational concetta from [email or web address]. Thrive Questionnaire Date Thrive assessed: 01/31/24 I am a: Patient What is your living situation today?: I have a steady place to live Within the past 12 months, did the food you bought not last and you didn't have the money to get more?: Never true Within the past 12 months, did you worry whether your food would run out before you got money to buy more?: Never true Do you have trouble paying for medicines?: No Do you have trouble getting transportation to medical appointments?: No Do you have trouble paying your heating and electricity bill?: No Do you have trouble taking care of your child, family member or friend?: No Do you have trouble with day-to-day activities such as bathing, preparing meals, shopping, managing finances, etc.?: No Are you currently unemployed and looking for a job?: No Are you interested in more education?: No THRIVE Score: 0 AUDIT C Alcohol Use Questionnaire (AUDIT-C) 1. How often do you have a drink containing alcohol?: Never Total Score: 0 RENAN-7 AMB Questionnaire RENAN-7 Date RENAN - 7 assessed: 01/31/24 Feeling nervous, anxious, or on edge: 1 = Several days Not being able to stop or control worryin = Several days Worrying too much about different things: 1 = Several days Trouble relaxin = Several days Being so restless that it is hard to sit still: 1 = Several days Becoming easily annoyed or irritable: 1 = Several days Feeling afraid as if something awful might happen: 2 = More than half the days Total RENAN-7 score (0-4 normal; 5-9 mild; 10-14 moderate; 15-21 severe): 8 Source: Developed by Drs. Minh Fraser, Naty Jesus, Stewart Mora and colleagues, with an educational concetta from [email or web address]. RENAN-7 Assessment Billing RENAN-7 Assessment Tool: RENAN-7 Assessment 44955 Review of Systems Const Details: Constitutional : No Weight loss, No Fever, No Chills, No Fatigue, No Malaise ENT/Mouth : No sore throat, No Rhinorrhea Eyes: No Eye Pain, No Swelling, No Redness Cardiovascular : No Chest Pain, No SOB, Admits some Dyspnea on Exertion, No Orthopnea, No Edema, No Palpitations Respiratory : No Cough, No Sputum, No Wheezing Gastrointestinal : No Nausea, No Vomiting, No Diarrhea, No Constipation, No abdominal Pain, No Hematochezia, No Melena Genitourinary : No Dysuria, No Urinary Frequency, No Hematuria, Musculoskeletal : Admits right shoulder pain and left heel pain. Skin : No Skin Lesions, No rash Neuro : No Weakness, No Numbness, No Dizziness, No Headache Psych : Admits some Anxiety/Panic, Admits some Depression, Denies SI/HI. Heme/Lymph: No Bruising, No Bleeding,No Lymphadenopathy Endocrine : No Polyuria, No Polydipsia All other systems reviewed and are negative Physical exam (Primary Care) Vital Signs: Last Vital Signs Pulse 70 01/31/24 08:52 BP 110/68 01/31/24 08:52 Pulse Ox 99 01/31/24 08:52 Oxygen Delivery Method Room Air 01/31/24 08:52 Care Plan Goal for BP management: Vital signs reviewed stable. BMI result Body Mass Index 33.1 Tobacco/Smoking Status: Tobacco use Status Tobacco use date assessed 01/31/24 01/31/24 09:02 Patient Tobacco Use Status Never used Tobacco 01/31/24 08:54 e-Cigarette/Vaping Use Never Used 01/31/24 08:54 Depression Screening Interpretation: Negative Const Other: Appearance: Alert.? Oriented X3.? No acute distress.? Head: Normocephalic, atraumatic. Eyes: Pupils equal, round and reactive to light.? Neck: Normal inspection.? Neck supple.? CVS: Normal heart rate and rhythm.? Pulses normal.? Respiratory: No respiratory distress.? Breath sounds normal.? Extremities: No lower extremity edema.? No calf ttp. 5/5 strength to bilateral upper and lower extremities. +point tenderness over insert of left plantar fascia. Back: No midline tenderness, no C-spine tenderness, full range of motion, no CVA tenderness bilaterally Neuro: Oriented X 3.? No motor deficit.? No sensory deficit. CN 2-12 intact Assessment and Plan Assessment & Plan (1) Plantar fasciitis of left foot: Comment: Patient will get referral to physical therapy. Will also get meloxicam. Code(s): M72.2 - Plantar fascial fibromatosis (2) Sleep apnea: Comment: Patient has history of sleep apnea, has not used CPAP machine and several years. Will refer back to Sleep Medicine for fitting of CPAP machine and updated evaluation Code(s): G47.30 - Sleep apnea, unspecified Qualifiers: Sleep apnea type: unspecified type Qualified Code(s): G47.30 - Sleep apnea, unspecified (3) Reactive airway disease: Comment: Will give patient albuterol and Symbicort to be taken as directed. Code(s): J45.909 - Unspecified asthma, uncomplicated Qualifiers: Asthma severity: unspecified severity Asthma persistence: unspecified Asthma complication type: uncomplicated Qualified Code(s): J45.909 - Unspecified asthma, uncomplicated Plan: Take your medications as prescribed. If you were prescribed antibiotics today, it is important that you take your medication to their entirety, do not skip any doses, do not finish them early. Follow-up with your primary care provider this week. Return to the emergency department with new or worsening symptoms. Such as fevers, chills, chest pain, shortness of breath, nausea, vomiting, dizziness, headache, vision changes, lethargy In case of emergency call 911 Plan Draw fasting labs, follow-up physical exam in 4 months Orders: Orders MM tomosynthesis screening BI Today Z12.31 - Encounter for screening mammogram for malignant neoplasm of breast Vitamin D 25-OH (D2 and D3) Today Z13.21 - Encounter for screening for nutritional disorder Comprehensive Met. Panel Today Z91.89 - Other specified personal risk factors, not elsewhere classified Complete Blood Count Auto Diff Today Z13.0 - Encounter for screening for diseases of the blood and blood-forming organs and certain disorders involving the immune mechanism Lipid Panel Today Z13.220 - Encounter for screening for lipoid disorders Vitamin B6 Today Z13.21 - Encounter for screening for nutritional disorder Vitamin B12 Today Z13.21 - Encounter for screening for nutritional disorder UA CC w/rflx Micro + Cult Today Z13.89 - Encounter for screening for other disorder TSH reflex Free T4 Today Z13.29 - Encounter for screening for other suspected endocrine disorder PT Evaluation and Treatment Today M72.2 - Plantar fascial fibromatosis Referrals Sleep Medicine Referral G47.30 - Sleep apnea, unspecified Medications: New albuterol sulfate 90 mcg/actuation 2 puffs inhalation Q6H PRN 6.7 grams 0RF shortness of breath or wheezing budesonide-formoterol 160-4.5 mcg/actuation (Symbicort) 2 puffs inhalation Q12H 10.2 grams 0RF propranolol 20 mg PO ONCE 90 tabs 0RF meloxicam Do not combine with other NSAID's 15 mg PO DAILY PRN 30 tabs 0RF pain, moderate Coding Level of Care Code Est Pt Level 4 (84031) Diagnoses Plantar fasciitis of left foot M72.2 Sleep apnea, unspecified type G47.30 Sleep apnea type: unspecified type Reactive airway disease without complication, unspecified asthma severity, unspecified whether persistent J45.909 Asthma severity: unspecified severity Asthma persistence: unspecified Asthma complication type: uncomplicated Additional Codes RENAN-7 Assessment Billing - RENAN-7 Assessment Tool: RENAN-7 Assessment 72871 ([id number]) Time Spent (min) 40
== END 2024-01-31 09:41 | disposition home or self-care (01) ==
PROVIDERS: PCP Family Medicine; Visit Provider Nurse Practitioner Primary Care
DX: M72.2 Plantar fascial fibromatosis (principal); G47.30 Sleep apnea, unspecified; J45.909 Unspecified asthma, uncomplicated
CPT/HCPCS: 99214

== ENCOUNTER 2024-02-01 08:13 | Outpatient (REF) | payer OTHER, SELFPAY ==
[2024-02-01 11:39] LABS: MANUAL DIFF FLAG NO
[2024-02-01 11:47] LABS: Basophils Percent Auto 1.1 % (0-2); Eosinophils Absolute Auto 0.1 X10*3/uL (0.0-0.4); Eosinophils Percent Auto 3.9 % (0-4); Hematocrit 39.5 % (37.0-47.0); Hemoglobin 13.1 g/dl (12.0-16.0); Imm Gran Abs Auto 0.01 X10*3/uL (0.00-0.03); Imm Gran Pct Auto 0.3 % (0.0-0.4); Lymphocytes Absolute Auto 1.1 X10*3/uL (1.2-4.9); Lymphocytes Percent Auto 29.3 % (20-40); Mean Corpuscular HGB Conc 33.2 g/dl (31.0-35.0); Mean Corpuscular Hemoglobin 29.8 pg (27.0-33.0); Mean Platelet Volume 10.4 fL (9.4-12.3); Monocytes Absolute Auto 0.3 X10*3/uL (0.1-1.2); Neutrophils Absolute Auto 2.1 x10*3/uL (2.0-8.3); Neutrophils Percent Auto 58.4 % (45-73); Platelet Count 305 X10*3/uL (160-400); Red Blood Count 4.39 X10*6/uL (4.20-5.50); Red Cell Distribution Width 13.2 % (11.0-16.0); White Blood Count 3.6 X10*3/uL (4.8-10.8)
[2024-02-01 12:05] LABS: Appearance Urine Clear; Color Urine Yellow; Glucose Urine UA Negative (Negative); Leukocyte Esterase Urine Negative (Negative); Nitrite Urine Negative (Negative); PH 5.5 (5.0-9.0); Urine Blood Negative (Negative); Urine Ketones Negative (Negative); Urine Protein Negative (Neg-Trace)
[2024-02-01 12:53] LABS: Vitamin B12 526 pg/mL (200-900)
[2024-02-01 13:01] LABS: Alanine Aminotransferase 12 U/L (0-31); Albumin Level 4.1 g/dL (3.5-5.0); Alkaline Phosphatase 113 U/L (39-117); Anion Gap 11 (12-20); Aspartate Amino Transferase 17 U/L (5-31); Bilirubin Total 0.3 mg/dL (0.0-1.0); Blood Urea Nitrogen 20 mg/dL (9-16); Calcium 9.6 mg/dL (8.4-10.2); Carbon Dioxide 22 mmol/L (22-29); Chloride 114 mmol/L (96-108); Cholesterol 194 mg/dL (<200); Estimated Glomerular Filt Rate > 60; Glucose Random 95 mg/dL (60-115); HDL Cholesterol 46 mg/dL (>40); LDL Cholesterol Calculated 123 mg/dL (<100); Potassium 3.5 mmol/L (3.3-5.1); Sodium 143 mmol/L (135-145); Total Protein 7.2 g/dL (6.5-8.0); Triglycerides 125 mg/dL (<150)
[2024-02-05 15:43] LABS: Vitamin D 25-OH, D2 <4 ng/mL; Vitamin D 25-OH, D3 31 ng/mL; Vitamin D 25-OH, Total 31 ng/mL (30-100)
== END 2024-02-01 08:14 | disposition home or self-care (01) ==
LOC: HO.HMGCLDS 08:13
PROVIDERS: PCP Nurse Practitioner Primary Care; Visit Provider Nurse Practitioner Primary Care
DX: Z13.21 Encounter for screening for nutritional disorder (principal); Z13.0 Encounter for screening for diseases of the blood and blood-forming organs and certain disorders involving the immune mechanism; Z13.89 Encounter for screening for other disorder; Z13.220 Encounter for screening for lipoid disorders; Z13.29 Encounter for screening for other suspected endocrine disorder; Z91.89 Other specified personal risk factors, not elsewhere classified
CPT/HCPCS: 36415; 80053; 80061; 81003; 82306; 82607; 84207; 84443; 85025

== ENCOUNTER 2024-02-15 10:17 | Outpatient (AMB) | payer OTHER, SELFPAY ==
[2024-02-15 10:21] VITALS: BMI 33.1
--- NOTE | 2024-02-15 10:21 | A.OFFVIS_ITS ---
Intake Vital Signs 02/15/24 10:21 Height 5 ft 2 in Weight 181 lb BMI 33.1 Intake Visit Reasons: Newprob-right shoulder pain Intake Note: Lisa is a 63 year old Right hand dominate female who presents with Right shoulder pain and weakness. The patient describes her pain as sharp and severe in nature. Her pain has gotten worse over the last 6 months in spite of continued non operative treatments. She has done physical therapy exercises which aggravated her pain. She has also tried Tylenol and meloxicam as well as ibuprofen which gave her minimal relief. She has had injections in the past which gave her no relief. The patient reports weakness when lifting her right hand above shoulder height. Allergies No Known Allergies [No Known Allergies*] Allergy (Verified 02/15/24 10:26) Medication List - Last Reconciled 02/15/24 by Vinny Vazquez MD albuterol sulfate 90 mcg/actuation 2 puffs inhalation Q6H PRN budesonide-formoterol 160-4.5 mcg/actuation (Symbicort) 2 puffs inhalation Q12H ibuprofen 800 mg PO Q8H PRN lorazepam 1 mg PO DAILY PRN meloxicam 15 mg PO DAILY PRN paroxetine HCl mg PO propranolol 20 mg PO DAILY sumatriptan succinate 50 mg PO Q6-8H PRN topiramate 25 mg PO DAILY 30 days PFSH Medical History (Updated 02/15/24 @ 10:34 by Vinny Vazquez MD) Sleep apnea Anxiety and depression Hx of migraines Surgical History H/O colonoscopy History of bilateral carpal tunnel release S/P EDWAR (total abdominal hysterectomy) Hx laparoscopic cholecystectomy Family History Father Asthma Mother Dementia CHF (congestive heart failure) Brother No problems noted. Son No problems noted. Son No problems noted. Other Mental health disorder Social History (Updated 02/15/24 @ 10:27 by Luisa Kapadia CMA) Household Members: Spouse Housing: House Alcohol intake: never Patient Tobacco Use Status: Never used Tobacco e-Cigarette/Vaping Use: Never Used Second Hand Smoke Exposure: No service: No Current occupational status: unemployed Current occupation: Right hand dominate Current occupational exposures/hazards: No Cognitive needs: No Hearing needs: No Vision needs: No Physical Exam Vital Signs: BMI result Body Mass Index 33.1 Const Other: Well-nourished well-developed very friendly female awake alert and oriented x3 in no acute distress Extrem Other: Bilateral upper extremity examination shows good capillary refill, no skin l esions noted, normal sensation light touch Right shoulder examination shows decreased active and passive range motion when compared to her left shoulder, 4+ out of 5 strength with supraspinatus testing, positive impingement signs, tenderness over her acromioclavicular joint, no instability Assessment & Plan Assessment & Plan (1) Right shoulder pain: Code(s): M25.511 - Pain in right shoulder Plan Ms. Benito presents with right shoulder pain and weakness due to impingement syndrome and possible rotator cuff tearing. Thus, I will send the patient for an MRI of her right shoulder for further evaluation. I will see her back once the MRI is completed to discuss the findings and treatment options. Feel free to call me at any time should questions regarding her orthopedic management arise. I spent 22 minutes in reviewing the patient's records and imaging studies, seeing the patient and documenting in the medical record. Orders: Orders MR shoulder RT wo con Today M25.511 - Pain in right shoulder Medications: New tramadol 50 mg PO Q12H PRN 60 tabs 0RF pain Coding Level of Care Code Est Pt Level 2 (76944) Diagnoses Right shoulder pain M25.511
== END 2024-02-15 10:43 | disposition home or self-care (01) ==
PROVIDERS: PCP Family Medicine; Visit Provider Orthopaedic Surgery
DX: M25.511 Pain in right shoulder (principal)
CPT/HCPCS: 99214

== ENCOUNTER → 2024-02-15 10:17 | Outpatient (BNVA) | payer OTHER, SELFPAY | PROVIDERS: PCP Family Medicine; Visit Provider Orthopaedic Surgery | DX: M25.511 Pain in right shoulder (principal) | CPT/HCPCS: 99212 ==

== ENCOUNTER 2024-02-17 11:49 | Outpatient (AMB) | payer OTHER, SELFPAY ==
[2024-02-17 12:05] VITALS: BP 114/62; PULSE 77; TEMP 36.9; O2SAT 98; BMI 33.2
--- NOTE | 2024-02-17 12:05 | MHC.OFFWIV ---
Intake Vital Signs 02/17/24 12:05 Height 5 ft 2 in Weight 181 lb 8 oz BMI 33.2 BP 114/62 Blood Pressure Location Lt brachial Position Sitting Pulse 77 Pulse Source Pulse Oximeter Temp 98.4 F Temp Source Oral Pulse Oximetry (%) 98 Oxygen Delivery Method Room Air Intake Visit Reasons: EP Sharp pain behind LT ear Intake Note: Pt presents to the office today for c/o sharp pain behind her left ear that started 3 days ago. She states it is throbbing pains. Patient Tobacco Use Status: Never used Tobacco Allergies No Known Allergies [No Known Allergies*] Allergy (Verified 02/17/24 12:05) HPI EP Sharp pain behind LT ear HPI Details This is a 63 year old female patient who presents with pain behind left ear for the last 2-3 days. She notes a throbbing sensation. Denies any fever/chills. Reports this started as sinus/facial pressure earlier this week, and then she developed this ear pain. Pain radiates down left side of neck. States she does get migraines, and this has made these worse. [facility] Medical History (Updated 02/17/24 @ 12:44 by ATUL Livingston) Left otitis media with effusion Sleep apnea Anxiety and depression Hx of migraines Surgical History H/O colonoscopy History of bilateral carpal tunnel release S/P EDWAR (total abdominal hysterectomy) Hx laparoscopic cholecystectomy Family History Father Asthma Mother Dementia CHF (congestive heart failure) Brother No problems noted. Son No problems noted. Son No problems noted. Other Mental health disorder Social History Household Members: Spouse Housing: House Alcohol intake: never Patient Tobacco Use Status: Never used Tobacco e-Cigarette/Vaping Use: Never Used Second Hand Smoke Exposure: No service: No Current occupational status: unemployed Current occupation: Right hand dominate Current occupational exposures/hazards: No Cognitive needs: No Hearing needs: No Vision needs: No Review of Systems Const All systems reviewed & are unremarkable except as noted in HPI and below Physical Exam Vital Signs: Last Vital Signs Temp 98.4 F 02/17/24 12:05 Pulse 77 02/17/24 12:05 BP 114/62 02/17/24 12:05 Pulse Ox 98 02/17/24 12:05 Oxygen Delivery Method Room Air 02/17/24 12:05 BMI result Body Mass Index 33.2 Const General: cooperative, healthy appearing and no acute distress HEENT Head: Yes normal to inspection Ears: hearing grossly normal bilaterally, external ears normal, TM normal on the right, EAC's normal and TM abnormal (left TM with purulent effusion) General nose exam: Normal external nose present Face and sinus: Yes sinus tenderness (frontal/maxillary) Neck Neck: Yes no lymphadenopathy Resp Effort & Inspection: normal respiratory effort Auscultation: clear to auscultation bilaterally Cardio Rate: regular rate Rhythm: regular rhythm Skin General skin exam: no rashes or lesions noted Extrem General: Yes no clubbing, cyanosis or edema Psych Appearance: grossly normal Mental Status: mental status grossly normal Speech and movement: Normal speech and movement present Assessment & Plan Assessment & Plan (1) Left otitis media with effusion: Code(s): H65.92 - Unspecified nonsuppurative otitis media, left ear Plan: Augmentin BID 7 days. Advised Motrin/Tylenol as needed for pain/discomfort. We reviewed indications, use, possible s/e of medication. If she does not improve with treatment, she can return to the clinic for further evaluation. All questions were answered and patient agrees to plan. Medications: New amoxicillin-pot clavulanate 875-125 mg 1 tab PO BID 7 days 14 tabs 0RF H65.92 - Unspecified nonsuppurative otitis media, left ear Coding Level of Care Code Est Pt Level 4 (36519) Diagnoses Left otitis media with effusion H65.92
== END 2024-02-17 12:48 | disposition home or self-care (01) ==
PROVIDERS: PCP Nurse Practitioner Primary Care; Visit Provider Nurse Practitioner Family
DX: H65.92 Unspecified nonsuppurative otitis media, left ear (principal)
CPT/HCPCS: 99214

== ENCOUNTER 2024-02-28 08:34 | Outpatient (REF) | payer OTHER, SELFPAY | END 2024-02-28 08:35 | disposition home or self-care (01) | LOC: HO.MAMMO 08:34 | PROVIDERS: PCP Nurse Practitioner Primary Care; Visit Provider Nurse Practitioner Primary Care | DX: Z12.31 Encounter for screening mammogram for malignant neoplasm of breast (principal) | CPT/HCPCS: 77063; 77067 ==

== ENCOUNTER → 2024-02-28 09:00 | Outpatient (BNV) | payer OTHER, SELFPAY | PROVIDERS: PCP Nurse Practitioner Primary Care; Visit Provider Radiology Diagnostic Radiology | DX: Z12.31 Encounter for screening mammogram for malignant neoplasm of breast (principal) | CPT/HCPCS: 77063; 77067 ==

== ENCOUNTER 2024-03-28 09:19 | Outpatient (AMB) | payer OTHER, SELFPAY ==
[2024-03-28 09:45] VITALS: BMI 33.1
--- NOTE | 2024-03-28 09:45 | A.OFFVIS_ITS ---
Vital Signs 03/28/24 09:45 Height 5 ft 2 in Weight 181 lb BMI 33.1 Intake Visit Reasons: Right shoulder pain Intake Note: Lisa is a 63 year old female who presents with complaints of progressively worsening right shoulder pain and weakness. I last saw the patient on 02/15/2024. The patient states that since that previous visit her symptoms have gotten worse. She has failed the last 6 weeks of conservative treatment. She has had injections in the past which gave her minimal relief. She has also been doing physical therapy exercises which aggravated her pain. She reports weakness when lifting her right hand above shoulder height. She has tried Tylenol and anti- inflammatory medicines which gave her minimal relief. The patient did undergo left knee arthroscopic surgery on 10/22/2023. She reports minimal discomfort in her left knee. She denies any locking or giving way. Allergies No Known Allergies [No Known Allergies*] Allergy (Verified 03/28/24 09:49) Medication List - Last Reconciled 03/28/24 by Vinny Vazquez MD albuterol sulfate 90 mcg/actuation 2 puffs inhalation Q6H PRN amoxicillin-pot clavulanate 875-125 mg 1 tab PO BID 7 days budesonide-formoterol 160-4.5 mcg/actuation (Symbicort) 2 puffs inhalation Q12H ibuprofen 800 mg PO Q8H PRN lorazepam 1 mg PO DAILY PRN meloxicam 15 mg PO DAILY PRN paroxetine HCl mg PO propranolol 20 mg PO DAILY sumatriptan succinate 50 mg PO Q6-8H PRN topiramate 25 mg PO DAILY 30 days tramadol 50 mg PO Q12H PRN PFSH Medical History (Updated 02/17/24 @ 12:44 by ATUL Livingston) Left otitis media with effusion Sleep apnea Anxiety and depression Hx of migraines Surgical History (Updated 03/28/24 @ 09:51 by Luisa Kapadia CMA) Hx of left knee surgery (10/22/23) H/O colonoscopy History of bilateral carpal tunnel release S/P EDWAR (total abdominal hysterectomy) Hx laparoscopic cholecystectomy Family History Father Asthma Mother Dementia CHF (congestive heart failure) Brother No problems noted. Son No problems noted. Son No problems noted. Other Mental health disorder Social History Household Members: Spouse Housing: House Alcohol intake: never Patient Tobacco Use Status: Never used Tobacco e-Cigarette/Vaping Use: Never Used Second Hand Smoke Exposure: No service: No Current occupational status: unemployed Current occupation: Right hand dominate Current occupational exposures/hazards: No Cognitive needs: No Hearing needs: No Vision needs: No Physical Exam Vital Signs: BMI result Body Mass Index 33.1 Const Other: Well-nourished well-developed very friendly female awake alert and oriented x3 in no acute distress Extrem Other: Bilateral upper extremity examination shows good capillary refill, no skin lesions noted, normal sensation light touch Right shoulder examination shows decreased range of motion when compared to her left shoulder, 4+ out of 5 strength with supraspinatus testing, positive impingement signs, no instability, tenderness over her acromioclavicular joint Results Reviewed Results Reviewed: X-rays of the patient's right shoulder show severe acromioclavicular joint narrowing, a type 2 acromion, no acute bony abnormalities Assessment & Plan Assessment & Plan (1) Right shoulder pain: Code(s): M25.511 - Pain in right shoulder Category: Medical Plan Ms. Benito presents with progressively worsening right shoulder pain and weakness due to impingement syndrome as well as possible full-thickness rotator cuff tearing. At point she has failed the last 6 weeks of conservative treatment. I will send her for an MRI of her right shoulder for further evaluation of her rotator cuff tendons. I will see her back once the MRI is completed to discuss the findings and treatment options. Feel free to call me at any time should questions regarding her orthopedic management arise. I spent 20 minutes in reviewing the patient's records and imaging studies, seeing the patient and documenting in the medical record. Orders: Orders MR shoulder RT wo con Today M25.511 - Pain in right shoulder Coding Level of Care Code Est Pt Level 3 (19621) Diagnoses Right shoulder pain M25.511
== END 2024-03-28 10:16 | disposition home or self-care (01) ==
PROVIDERS: PCP Family Medicine; Visit Provider Orthopaedic Surgery
DX: M25.511 Pain in right shoulder (principal)
CPT/HCPCS: 99213

== ENCOUNTER → 2024-03-28 09:19 | Outpatient (BNVA) | payer OTHER, SELFPAY | PROVIDERS: PCP Family Medicine; Visit Provider Orthopaedic Surgery | DX: M25.511 Pain in right shoulder (principal) | CPT/HCPCS: 99212 ==

== ENCOUNTER 2024-05-03 07:12 | Outpatient (REF) | payer OTHER, SELFPAY ==
--- NOTE | ~2024-05-03 | MR_ITS ---
EXAMINATION: MR SHOULDER WITHOUT CONTRAST, RIGHT CLINICAL INFORMATION: Shoulder pain. COMPARISON: None available. TECHNIQUE: MRI of the shoulder without contrast was performed on a high-field scanner. FINDINGS: ROTATOR CUFF: Moderate supraspinatus tendinosis. Partial-thickness articular aspect tearing of the supraspinatus and anterior fibers infraspinatus measuring 2 cm AP, up to 2.4 cm ML. Mild-moderate infraspinatus tendinosis. Teres minor is intact. Mild subscapularis tendinosis, deep surface fraying. No muscle atrophy or fatty infiltration. BICEPS: Intact. CORACOACROMIAL ARCH: The undersurface of the acromion is curved with lateral downsloping and subacromial spurring. Moderate acromioclavicular arthritis. Small fluid in the subacromial-subdeltoid space. LABRUM/CAPSULE: No definite labral tear is seen. GLENOHUMERAL JOINT/MARROW: No fracture. Greater tuberosity subcortical degenerative/reactive edema, cysts. Trace joint fluid. MR/MR shoulder RT wo con IMPRESSION: 1. Moderate supraspinatus tendinosis. Partial-thickness articular aspect tearing measuring 2 x 2.4 cm. 2. Mild-moderate infraspinatus tendinosis. Mild subscapularis tendinosis, deep surface fraying. 3. Moderate acromioclavicular arthritis. Mild subacromial-subdeltoid bursitis.
== END 2024-05-03 07:13 | disposition home or self-care (01) ==
LOC: HO.MRI 07:12
PROVIDERS: PCP Nurse Practitioner Family; Visit Provider Orthopaedic Surgery
DX: M25.511 Pain in right shoulder (principal)
CPT/HCPCS: 73221

== ENCOUNTER 2024-05-09 11:08 | Outpatient (AMB) | payer OTHER, SELFPAY ==
--- NOTE | 2024-05-09 11:16 | MHC.OFFVIS ---
Intake Visit Reasons: OV-MRI right shoulder Review Intake Note: Lisa is a 63 year old female who presents with complaints of progressively worsening right shoulder pain and weakness. The patient states that her symptoms have gotten worse over the last year in spite of continued non operative treatments. She has done physical therapy exercises which aggravated her pain. She reports weakness when lifting her right hand above shoulder height. She has tried Tylenol and anti-inflammatory medicines which gave her minimal relief. The patient has failed the last 6 months of conservative treatment. Allergies No Known Allergies [No Known Allergies*] Allergy (Verified 05/09/24 11:16) Medication List - Last Reconciled 05/09/24 by Vinny Vazquez MD albuterol sulfate 90 mcg/actuation 2 puffs inhalation Q6H PRN budesonide-formoterol 160-4.5 mcg/actuation (Symbicort) 2 puffs inhalation Q12H ibuprofen 800 mg PO Q8H PRN lorazepam 1 mg PO DAILY PRN meloxicam 15 mg PO DAILY PRN paroxetine HCl mg PO propranolol 20 mg PO DAILY sumatriptan succinate 50 mg PO Q6-8H PRN topiramate 25 mg PO DAILY 30 days tramadol 50 mg PO Q12H PRN PFSH Medical History Left otitis media with effusion Sleep apnea Anxiety and depression Hx of migraines Surgical History Hx of left knee surgery (10/22/23) H/O colonoscopy History of bilateral carpal tunnel release S/P EDWAR (total abdominal hysterectomy) Hx laparoscopic cholecystectomy Family History Father Asthma Mother Dementia CHF (congestive heart failure) Brother No problems noted. Son No problems noted. Son No problems noted. Other Mental health disorder Social History Household Members: Spouse Housing: House Alcohol intake: never Patient Tobacco Use Status: Never used Tobacco e-Cigarette/Vaping Use: Never Used Second Hand Smoke Exposure: No service: No Current occupational status: unemployed Current occupation: Right hand dominate Current occupational exposures/hazards: No Cognitive needs: No Hearing needs: No Vision needs: No Physical Exam Const Other: Well-nourished well-developed very friendly female awake alert and oriented x3 in no acute distress Extrem Other: Bilateral upper extremity examination shows good capillary refill, no skin lesions noted, normal sensation light touch Right shoulder examination shows decreased active range of motion but almost full passive range of motion when compared to her left shoulder, 4/5 strength with supraspinatus testing, positive impingement signs, tenderness over her acromioclavicular joint, no instability Results Reviewed Results Reviewed: MRI of the patient's right shoulder show severe acromioclavicular joint narrowing, a type 3 acromion, a full-thickness tear of the supraspinatus tendon Assessment & Plan Assessment & Plan (1) Right shoulder pain: Code(s): M25.511 - Pain in right shoulder Category: Medical Plan Ms. Benito presents with progressively worsening right shoulder pain and weakness due to impingement syndrome, acromioclavicular joint arthritis and a full-thickness rotator cuff tear. I had a lengthy discussion with the patient regarding the treatment options. At this point she has failed continued non operative treatments. The risks and benefits of right shoulder surgery were discussed at length with the patient. The patient wishes to proceed with surgery. Surgery will involve right shoulder diagnostic arthroscopy with distal clavicle excision, acromioplasty and rotator cuff repair. The patient will be scheduled for next available date. She will follow-up as instructed. Feel free to call me at any time should questions regarding her orthopedic management arise. I spent 22 minutes in reviewing the patient's records and imaging studies, seeing the patient and documenting in the medical record. Coding Level of Care Code Est Pt Level 3 (17464) Diagnoses Right shoulder pain M25.511
== END 2024-05-09 12:01 | disposition home or self-care (01) ==
PROVIDERS: PCP Nurse Practitioner Family; Visit Provider Orthopaedic Surgery
DX: M25.511 Pain in right shoulder (principal)
CPT/HCPCS: 99214

== ENCOUNTER → 2024-05-09 11:08 | Outpatient (BNVA) | payer OTHER, SELFPAY | PROVIDERS: PCP Nurse Practitioner Family; Visit Provider Orthopaedic Surgery | DX: M25.511 Pain in right shoulder (principal) | CPT/HCPCS: 99212 ==

== ENCOUNTER 2024-05-15 09:16 | Outpatient (AMB) | payer OTHER, SELFPAY ==
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
[2024-05-15 09:39] VITALS: BP 116/80; PULSE 77; O2SAT 98; BMI 32.4
== END 2024-05-15 10:35 | disposition home or self-care (01) ==
PROVIDERS: PCP Family Medicine; Visit Provider Nurse Practitioner Primary Care
DX: Z00.00 Encounter for general adult medical examination without abnormal findings (principal); G43.909 Migraine, unspecified, not intractable, without status migrainosus; F41.8 Other specified anxiety disorders
CPT/HCPCS: 99396

== ENCOUNTER 2024-05-15 10:37 | Outpatient (REF) | payer OTHER, SELFPAY ==
[2024-05-15 13:58] LABS: MANUAL DIFF FLAG NO
[2024-05-15 14:07] LABS: Basophils Absolute Auto 0.1 X10*3/uL (0.0-0.2); Basophils Percent Auto 0.9 % (0-2); Eosinophils Absolute Auto 0.2 X10*3/uL (0.0-0.4); Hematocrit 39.6 % (37.0-47.0); Hemoglobin 12.6 g/dl (12.0-16.0); Imm Gran Abs Auto 0.02 X10*3/uL (0.00-0.03); Imm Gran Pct Auto 0.4 % (0.0-0.4); Lymphocytes Absolute Auto 1.4 X10*3/uL (1.2-4.9); Lymphocytes Percent Auto 25.8 % (20-40); Mean Corpuscular HGB Conc 31.8 g/dl (31.0-35.0); Mean Corpuscular Hemoglobin 29.7 pg (27.0-33.0); Mean Corpuscular Volume 93.4 fL (80.0-98.0); Mean Platelet Volume 10.7 fL (9.4-12.3); Monocytes Absolute Auto 0.4 X10*3/uL (0.1-1.2); Monocytes Percent Auto 7.2 % (2-11); Neutrophils Absolute Auto 3.4 x10*3/uL (2.0-8.3); Neutrophils Percent Auto 62.7 % (45-73); Platelet Count 348 X10*3/uL (160-400); Red Blood Count 4.24 X10*6/uL (4.20-5.50); Red Cell Distribution Width 13.4 % (11.0-16.0); White Blood Count 5.4 X10*3/uL (4.8-10.8)
[2024-05-15 15:06] LABS: Alanine Aminotransferase 15 U/L (0-31); Albumin Level 4.4 g/dL (3.5-5.0); Alkaline Phosphatase 110 U/L (39-117); Anion Gap 10 (12-20); Aspartate Amino Transferase 17 U/L (5-31); Bilirubin Total 0.3 mg/dL (0.0-1.0); Blood Urea Nitrogen 23 mg/dL (9-16); Calcium 10.3 mg/dL (8.4-10.2); Carbon Dioxide 25 mmol/L (22-29); Chloride 108 mmol/L (96-108); Estimated Glomerular Filt Rate > 60; Glucose Random 90 mg/dL (60-115); Potassium 3.9 mmol/L (3.3-5.1); Sodium 139 mmol/L (135-145); Total Protein 7.6 g/dL (6.5-8.0)
== END 2024-05-15 10:38 | disposition home or self-care (01) ==
LOC: HO.HMGCLDS 10:37
PROVIDERS: PCP Nurse Practitioner Primary Care; Visit Provider Nurse Practitioner Primary Care
DX: Z13.0 Encounter for screening for diseases of the blood and blood-forming organs and certain disorders involving the immune mechanism (principal); Z91.89 Other specified personal risk factors, not elsewhere classified
CPT/HCPCS: 36415; 80053; 85025

== ENCOUNTER 2024-05-26 07:59 | Day surgery (SDC) | payer OTHER, SELFPAY ==
[2024-05-22 09:09] VITALS: BMI 32.4
--- NOTE | 2024-05-24 12:33 | HO.ANESPROP2 ---
Documented by User: Ria Stephenson NP 05/24/24 12:34 HPI - Anesthesia Eval Consult details Narrative: 63yo F for Right Shoulder Arthroscopy,distal clavicle excision,acromiplasty,with rotator cuff repair s/p knee scope 10/2023 with [facility]-LMA 4 PMFSH Active Problems Active Problems: All Active Problems Physical exam (Acute) Left otitis media with effusion (Acute) Right shoulder pain (Acute) Reactive airway disease (Acute) Sleep apnea (Acute) Plantar fasciitis of left foot (Acute) Swelling of lower extremity (Acute) Left knee pain (Acute) Chronic idiopathic constipation (Acute) H/O colonoscopy (Acute) Depression (Acute) Migraines (Acute) Overweight (BMI 25.0-29.9) (Acute) Insomnia (Acute) Breast cancer screening by mammogram (Acute) Screening for colon cancer (Acute) Screening for cervical cancer (Acute) Adult general medical exam (Acute) Sleep disorder (Acute) Snoring (Acute) Mild obstructive sleep apnea (Acute) Anxiety with depression (Acute) Toe pain (Acute) Dyspnea on exertion (Acute) Family history of coronary artery disease (Acute) Constipation (Acute) Pre-op examination (Acute) Varicose veins of bilateral lower extremities with pain (Acute) Past Medical History Medical History Asthma Left otitis media with effusion Anxiety and depression Hx of migraines Sleep apnea Family History Family History Father Asthma Mother Dementia CHF (congestive heart failure) Brother No problems noted. Son No problems noted. Son No problems noted. Other Mental health disorder Family history of problems with anesthesia: No Surgical History Surgical History Hx of left knee surgery (10/22/23) H/O colonoscopy History of bilateral carpal tunnel release S/P EDWAR (total abdominal hysterectomy) Hx laparoscopic cholecystectomy History of Problems with Anesthesia: No Social History Social History Household Members: Spouse Housing: House Are you a primary career development consultant to a significant other at home: No Do you presently have visiting nurse or other home services: No Alcohol intake: never Patient Tobacco Use Status: Never used Tobacco e-Cigarette/Vaping Use: Never Used Second Hand Smoke Exposure: No Use of substances other than those prescribed or required for medical reasons: No Have you been hit, kicked, punched, or otherwise hurt by someone within the past year? If so, by whom?: No Are you DNR?: No Advance Directives: No ( is primary contact) Advance Directives Information Provided: Yes (as above noted) Advance Directives on File: No Recently lost weight without trying: No Eating poorly because of decreased appetite: No Nutrition Risks: No Nutritional Risk Poor oral hygiene: No service: No Current occupational status: unemployed Current occupation: Right hand dominate Current occupational exposures/hazards: No Cognitive needs: No Hearing needs: No Vision needs: No Meds Allergies Allergy/AdvReac Type Severity Reaction Status Date / Time No Known Allergies Allergy Verified 05/26/24 08:23 [No Known Allergies*] Active Medications: Current Medications Cefazolin Sodium/Dextrose (Ancef) 2 gm in 50 mls @ 100 mls/hr IV PREOP ONE Stop: 05/26/24 06:07 Home Medications ?Medication ?Instructions ?Recorded ?Confirmed ?Last Taken ?Type lorazepam 1 mg tablet 1 mg PO DAILY PRN Anxiety 01/31/24 05/22/24 Unknown History paroxetine HCl 30 mg tablet 30 mg PO QAM 01/31/24 05/22/24 Unknown History propranolol 20 mg tablet 20 mg PO QAM 05/22/24 05/22/24 05/26/24 06:30 History topiramate 25 mg tablet 25 mg PO QAM 05/22/24 05/22/24 05/26/24 06:30 History Exam Height,Weight and Vital Signs: Height 5 ft 2 in Weight 80.286 kg Pertinent Lab Results Pertinent Lab Results: Laboratory Tests 05/15/24 10:50 WBC 5.4 Hgb 12.6 Hct 39.6 Plt Count 348 Sodium 139 Potassium 3.9 Chloride 108 Carbon Dioxide 25 BUN 23 H Creatinine 0.75 Assessment and Plan Assessment Anesthesia Assessment: Chart Reviewed Final Anesthetic Review Family History of Problems with Anesthesia: No History of Problems with Anesthesia: No Documented by User: Anali Shields MD 05/26/24 11:27 PMFSH Past Medical History Medical History Asthma Left otitis media with effusion Anxiety and depression Hx of migraines Sleep apnea Family History Family History Father Asthma Mother Dementia CHF (congestive heart failure) Brother No problems noted. Son No problems noted. Son No problems noted. Other Mental health disorder Surgical History Surgical History Hx of left knee surgery (10/22/23) H/O colonoscopy History of bilateral carpal tunnel release S/P EDWAR (total abdominal hysterectomy) Hx laparoscopic cholecystectomy Social History Social History Household Members: Spouse Housing: House Are you a primary career development consultant to a significant other at home: No Do you presently have visiting nurse or other home services: No Alcohol intake: never Patient Tobacco Use Status: Never used Tobacco e-Cigarette/Vaping Use: Never Used Second Hand Smoke Exposure: No Use of substances other than those prescribed or required for medical reasons: No Have you been hit, kicked, punched, or otherwise hurt by someone within the past year? If so, by whom?: No Are you DNR?: No Advance Directives: No ( is primary contact) Advance Directives Information Provided: Yes (as above noted) Advance Directives on File: No Recently lost weight without trying: No Eating poorly because of decreased appetite: No Nutrition Risks: No Nutritional Risk Poor oral hygiene: No service: No Current occupational status: unemployed Current occupation: Right hand dominate Current occupational exposures/hazards: No Cognitive needs: No Hearing needs: No Vision needs: No Meds Allergies Allergy/AdvReac Type Severity Reaction Status Date / Time No Known Allergies Allergy Verified 05/26/24 08:23 [No Known Allergies*] Home Medications ?Medication ?Instructions ?Recorded ?Confirmed ?Last Taken ?Type lorazepam 1 mg tablet 1 mg PO DAILY PRN Anxiety 01/31/24 05/22/24 Unknown History paroxetine HCl 30 mg tablet 30 mg PO QAM 01/31/24 05/22/24 Unknown History propranolol 20 mg tablet 20 mg PO QAM 05/22/24 05/22/24 05/26/24 06:30 History topiramate 25 mg tablet 25 mg PO QAM 05/22/24 05/22/24 05/26/24 06:30 History Exam Airway TM Dist: >3cm Neck ROM: Full Heart: rrr Lungs: cta Assessment and Plan Assessment Anesthesia Assessment: Anesthesia Plan Discussed Final Anesthetic Review NPO: Yes ASA Class: II (pre op ekg with non specific T wave changes ) Final Preanesthetic Review: No Changes in Pt Med Stat, Meds/Allgs Chart Reviewed, Consent Obtained/Reviewed and Anes Risks/Benef Reviewed Patient Risk: Low Procedure Risk: Low Anesthetic Plan Anesthetic Plan: GA Disposition: Standard PACU (ekg compared with prior , no changes )
[2024-05-26] VITALS (7 sets, daily range): BP systolic 122–151; BP diastolic 66–78; PULSE 58–70; RESP 15–17; TEMP 36.1–36.6; O2SAT 94–96
--- NOTE | 2024-05-26 08:09 | ECG_ITS ---
Test Reason : pre op Blood Pressure : / mmHG Vent. Rate : 064 BPM Atrial Rate : 064 BPM P-R Int : 144 ms QRS Dur : 088 ms QT Int : 382 ms P-R-T Axes : 034 024 009 degrees QTc Int : 394 ms Normal sinus rhythm Nonspecific T wave abnormality Abnormal ECG No previous ECGs available Referred By: Ria Stephenson Electronically Signed By:RONNY HERNANDEZ MD
[2024-05-26] MEDS: Lactated Ringers 1,000 ML 100 ML IVCONT (08:39)
--- NOTE | 2024-05-26 10:32 | PC.NURSE ---
abnormal ekg reported earlier to anesthesia. reviewed, no cardiac sx, ok'd to proceed.
--- NOTE | 2024-05-26 10:50 | PC.NURSE ---
24hr update documented on paper
--- NOTE | 2024-05-26 13:05 | P.BOP_ITS ---
Brief Operative Note Date of Service: 05/26/24 Pre-op diagnosis: Right shoulder rotator cuff tear, right shoulder impingement syndrome, right shoulder acromioclavicular joint arthritis Post-op diagnosis: same Procedure: Right shoulder diagnostic arthroscopy with right shoulder arthroscopic distal clavicle excision, right shoulder arthroscopic acromioplasty, right shoulder mini-open rotator cuff repair Implants: One suture anchor (Gillian Twinfix anchor with #2 Ultrabraid suture) Surgeon: Vinny Vazquez MD Anesthesia: GETA and regional Was an Presetter Operator used for this Procedure?: No Estimated blood loss (mL): 15 Pathology: none sent Condition: stable Disposition: PACU
--- NOTE | 2024-05-26 13:08 | W.PM.OPN ---
Operative Note Operative Note Date of Service: 05/26/24 Narrative: After the patient was identified as Lisa Benito and her right shoulder was initialed by myself the patient was brought to the holding area where a right shoulder interscalene regional block was performed by the anesthesiologist in routine fashion. The patient was then brought to the operating room where general anesthesia was induced by the anesthesiologist in routine fashion. The patient was given 2 g of IV Ancef preoperatively for infection prophylaxis. Examination under anesthesia of the patient's right shoulder showed full passive range of motion of the patient's right shoulder when compared to the left. The patient was gently positioned in the beach chair position with all bony prominences well padded. The patient's right shoulder region and upper extremity were prepped and draped in sterile fashion. A formal time-out was completed. A #11 scalpel blade was used to make a posterior portal 2 cm inferior and 1 cm medial to the posterolateral corner of the acromion. Blunt trocar technique was used to enter the glenohumeral joint in routine fashion. An anterior portal was made just lateral to the coracoid process after proper positioning was confirmed using a spinal needle. Diagnostic arthroscopy showed minimal degenerative changes of the glenoid and humeral head articular surfaces. There was a full-thickness tear of the supraspinatus tendon. There was no evidence of injury to the biceps tendon or its insertion onto the glenoid. There was no inflammation of the anterior joint capsule. The arthroscope was then placed from the posterior portal into the subacromial space. A lateral portal was made 2 fingerbreadths lateral to the anterior lateral corner of the acromion. The ArthroCare Wand was used to ablate soft tissues along the undersurface of the acromion as well as to excise the coracoacromial ligament. There was a sharp spur along the undersurface of the acromion which was removed using the hooded bur. The arthroscope was then placed into the lateral portal and the acromioplasty was completed with the bur in the posterior portal using the posterior aspect of the acromion as a cutting block. The ArthroCare Wand was then brought in through the anterior portal and was used to ablate soft tissues along the acromioclavicular joint and distal clavicle. The posterior and superior ligamentous structures were left intact. A distal clavicle excision of 8 mm was performed using the hooded bur. Any remaining bursal tissue was removed using the arthroscopic shaver. The subacromial space was irrigated and then drained. All arthroscopic instruments were removed. Sterile gloves were changed and the shoulder was once again prepped with Betadine. A #15 scalpel blade was used to extend the lateral portal to the lateral edge of the acromion. The subacromial tissues were dissected using electrocautery down to the superficial deltoid fascia. The trocar split in the anterior raphe of the deltoid was then extended to the lateral edge of the acromion using electrocautery and curved Mccoy scissors. Any remaining bursal tissue was removed using curved Mccoy scissors. Subacromial and subdeltoid adhesions were bluntly dissected. The undersurface of the acromion was palpated and it was smooth. A #2 Ethibond tag suture was placed into the supraspinatus tendon. The tendon was easily mobilized to its insertion point on the glenoid. The wound was irrigated with copious amounts of normal saline solution. One suture anchor was placed into the greater tuberosity in routine fashion. After removal of the anchor vice president of instruction it was clear that the anchor was 1-2 mm proud. Thus, the 1st anchor was removed. A second anchor was placed without difficulty. The rotator cuff repair was then performed using horizontal mattress sutures under minimal tension with the patient's elbow at their side. Following the repair the shoulder was taken through a full range of motion. The repair was stable. The wound was irrigated with copious amounts of normal saline solution. The superficial and deep deltoid fascia were closed with #1 Vicryl [id number] interrupted suture. The wound was once again irrigated. The subcutaneous tissues were closed with 2-0 Vicryl interrupted suture. The skin was closed with 3-0 Prolene subcuticular suture and Steri-Strips. The anterior and posterior portals were closed with 3-0 nylon interrupted suture. Dry sterile dressing was placed over all incisions. The patient's right upper extremity was placed into a sling. The patient was awoken and extubated in the operating room. The patient was transferred to the recovery room in stable condition.
[2024-05-26] MEDS: cefTRIAXone sodium 1 GM in 0.9 % Sodium Chloride 50 ML IV (13:33)
== END 2024-05-26 14:18 | disposition home or self-care (01) ==
PROVIDERS: PCP Nurse Practitioner Primary Care; Visit Provider Orthopaedic Surgery
PROC: (CPT 29805; principal; 2024-05-26 11:00)
DX: M75.101 Unspecified rotator cuff tear or rupture of right shoulder, not specified as traumatic (principal); M75.41 Impingement syndrome of right shoulder; M19.011 Primary osteoarthritis, right shoulder; G47.33 Obstructive sleep apnea (adult) (pediatric); J45.909 Unspecified asthma, uncomplicated; H65.92 Unspecified nonsuppurative otitis media, left ear; Z79.1 Long term (current) use of non-steroidal anti-inflammatories (NSAID); Z79.51 Long term (current) use of inhaled steroids; Z79.899 Other long term (current) drug therapy; F41.8 Other specified anxiety disorders; Z98.890 Other specified postprocedural states; Z56.0 Unemployment, unspecified
CPT/HCPCS: 29827; 29826; 29824; 93005; C1713; J0131; J0171; J0665; J0690; J0696; J1100; J1885; J2250; J2405; J2704; J2795; J3010

== ENCOUNTER → 2024-05-26 07:59 | Outpatient (BNV) | payer OTHER, SELFPAY | PROVIDERS: PCP Nurse Practitioner Primary Care; Visit Provider Orthopaedic Surgery | DX: M75.121 Complete rotator cuff tear or rupture of right shoulder, not specified as traumatic (principal); M19.011 Primary osteoarthritis, right shoulder; M75.41 Impingement syndrome of right shoulder | CPT/HCPCS: 23412; 29824 ==

== ENCOUNTER → 2024-05-26 08:09 | Outpatient (BNV) | payer OTHER, SELFPAY | PROVIDERS: PCP Nurse Practitioner Primary Care; Visit Provider Internal Medicine Cardiovascular Disease | DX: R94.31 Abnormal electrocardiogram [ECG] [EKG] (principal) | CPT/HCPCS: 93010 ==

== ENCOUNTER 2024-06-08 12:05 | Outpatient (AMB) | payer OTHER, SELFPAY ==
--- NOTE | 2024-06-08 12:33 | A.OFFVIS_ITS ---
Intake Visit Reasons: PO RT shoulder 05/26/24 Intake Note: Ambika a 63 year old female who presents today for a post operative visit s/p right shoulder on 05/26/24 Patient reports her pain has improved since her surgery, states no concerns today. Allergies No Known Allergies [No Known Allergies*] Allergy (Verified 06/08/24 12:36) HPI HPI PO RT shoulder 05/26/24 DR: Details: Lisa is a 63-year-old female who presents today for a postoperative evaluation of her right shoulder , 05/26/2024 She reports her pain has improved since her surgery. She denies any new concerns today. [facility] Medical History Asthma Left otitis media with effusion Anxiety and depression Hx of migraines Sleep apnea Surgical History Hx of left knee surgery (10/22/23) H/O colonoscopy History of bilateral carpal tunnel release S/P EDWAR (total abdominal hysterectomy) Hx laparoscopic cholecystectomy Family History Father Asthma Mother Dementia CHF (congestive heart failure) Brother No problems noted. Son No problems noted. Son No problems noted. 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 Current occupational exposures/hazards: No Cognitive needs: No Hearing needs: No Vision needs: No Review of Systems Const All systems reviewed & are unremarkable except as noted in HPI and below Physical Exam Const General: cooperative, healthy appearing, comfortable and no acute distress Orientation/consciousness: patient oriented x3 Neck Neck: Yes normal visual inspection and Yes no JVD Chest Chest palpation & inspection: normal inspection of the chest Resp Effort & Inspection: normal respiratory effort Auscultation: clear to auscultation bilaterally, crackles (no), rales (no), rhonchi (no) and wheezes (no) Cardio Jugular venous distension: no JVD Rate: regular rate Rhythm: regular rhythm Heart sounds: S1 normal heart sound present, S2 normal heart sound present, Murmur heart sound present (no) and Rub heart sound present (no) Neuro General: patient oriented x3 Extrem Other: Right shoulder: Incision is clean, dry, and intact. No erythema, no drainage. Deltoid sensation is intact and pulses are present. General: Yes normal to inspection, Yes no pedal edema and Yes no calf tenderness Psych Appearance: grossly normal Mental Status: mental status grossly normal Speech and movement: Normal speech and movement present Results Reviewed Results Reviewed: Brief Operative Note Date of Service: 05/26/24 Pre-op diagnosis: Right shoulder rotator cuff tear, right shoulder impingement syndrome, right shoulder acromioclavicular joint arthritis Post-op diagnosis: same Procedure: Right shoulder diagnostic arthroscopy with right shoulder arthroscopic distal clavicle excision, right shoulder arthroscopic acromioplasty, right shoulder mini-open rotator cuff repair Implants: One suture anchor (Phylogy Twinfix anchor with #2 Ultrabraid suture) Surgeon: Vinny Vazquez MD Assessment & Plan Assessment & Plan (1) Right rotator cuff tear: Code(s): M75.101 - Unspecified rotator cuff tear or rupture of right shoulder, not specified as traumatic Category: Medical (2) Impingement of right shoulder: Code(s): M25.811 - Other specified joint disorders, right shoulder Category: Medical Plan Sutures removed today. Steri strips applied. She will begin a course of physical therapy to work on range of motion and periscapular stabilization. No rotator cuff strengthening at this time. I did encourage her to wear the sling when she is out of the house, but when she is in a controlled environment like such as inside of her house, she can remove the sling and avoid any lifting, pushing, pulling, and carrying of objects. She will return to our office in [address] Vazquez or sooner if needed. Orders: Orders PT Evaluation and Treatment 06/08/24 M25.811 - Other specified joint disorders, right shoulder, M75.101 - Unspecified rotator cuff tear or rupture of right shoulder, not specified as traumatic Patient Instructions: Scribed for Samara Torres PA-C, by Isidro De La Torre medical record librarians teacher, on 06/08/2024 at 12:30 PM PARTH. Samara Dimas PA-C, have personally reviewed and agree with the information entered by the scribe. Coding Level of Care Code Global (26454) Diagnoses Right rotator cuff tear M75.101 Impingement of right shoulder M25.811
== END 2024-06-08 13:03 | disposition home or self-care (01) ==
PROVIDERS: PCP Nurse Practitioner Family; Visit Provider Physician Assistant
DX: M75.101 Unspecified rotator cuff tear or rupture of right shoulder, not specified as traumatic (principal); M25.811 Other specified joint disorders, right shoulder
CPT/HCPCS: 99024

== ENCOUNTER → 2024-06-08 12:05 | Outpatient (BNVA) | payer OTHER, SELFPAY | PROVIDERS: PCP Nurse Practitioner Family; Visit Provider Physician Assistant | DX: M75.101 Unspecified rotator cuff tear or rupture of right shoulder, not specified as traumatic (principal); M25.811 Other specified joint disorders, right shoulder; Z47.89 Encounter for other orthopedic aftercare; Z98.890 Other specified postprocedural states | CPT/HCPCS: 99212 ==

== ENCOUNTER 2024-07-06 10:48 | Outpatient (AMB) | payer OTHER, SELFPAY ==
--- NOTE | 2024-07-06 10:49 | A.OFFVIS_ITS ---
Vital Signs 07/06/24 11:10 Height 5 ft 2 in Weight 175 lb BMI 32.0 Intake Visit Reasons: PO-4wk f/u RT shoulder RCR 05/26/24 Intake Note: Lisa is a 63 year old female who presents today post operatively S/P Right Shoulder RCR 05/26/24. Patient states she is doing well. She continues with her passive stretching exercises. She denies any fevers or chills. Allergies No Known Allergies [No Known Allergies*] Allergy (Verified 07/06/24 10:50) Medication List - Last Reconciled 07/06/24 by Vinny Vazquez MD albuterol sulfate 90 mcg/actuation 2 puffs inhalation Q6H PRN budesonide-formoterol 160-4.5 mcg/actuation (Symbicort) 2 puffs inhalation Q12H ibuprofen 800 mg PO Q8H PRN lorazepam 1 mg PO DAILY PRN meloxicam 15 mg PO DAILY PRN oxycodone 10 mg (2 x 5 mg) PO Q4H PRN 1 week paroxetine HCl 30 mg PO QAM propranolol 20 mg PO QAM sumatriptan succinate 50 mg PO Q6-8H PRN topiramate 25 mg PO QAM tramadol 50 mg PO Q12H PRN PFSH Medical History Asthma Left otitis media with effusion Anxiety and depression Hx of migraines Sleep apnea Surgical History Hx of left knee surgery (10/22/23) H/O colonoscopy History of bilateral carpal tunnel release S/P EDWAR (total abdominal hysterectomy) Hx laparoscopic cholecystectomy Family History Father Asthma Mother Dementia CHF (congestive heart failure) Brother No problems noted. Son No problems noted. Son No problems noted. 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 Benito is doing well after undergoing right shoulder rotator cuff repair surgery on 05/26/2024. She will continue passive range of motion exercises only until she is 8 weeks out from surgery. At that time she can begin gentle active range of motion exercises. The do's and don'ts of lifting were discussed at length with the patient. She will contact me prior to her follow-up appointment in 2 months should any questions or concerns arise. Feel free to call me at any time should questions regarding her orthopedic management arise. Orders: Orders PT Evaluation and Treatment Today M25.511 - Pain in right shoulder Medications: New oxycodone Partial Fill upon patient request. 5 mg PO Q8H PRN 35 tabs 0RF pain Coding Level of Care Code Global (41197) Diagnoses Right shoulder pain M25.511
[2024-07-06 11:10] VITALS: BMI 32.0
== END 2024-07-06 11:51 | disposition home or self-care (01) ==
PROVIDERS: PCP Nurse Practitioner Family; Visit Provider Orthopaedic Surgery
DX: M25.511 Pain in right shoulder (principal)
CPT/HCPCS: 99024

== ENCOUNTER → 2024-07-06 10:48 | Outpatient (BNVA) | payer OTHER, SELFPAY | PROVIDERS: PCP Nurse Practitioner Family; Visit Provider Orthopaedic Surgery | DX: Z47.89 Encounter for other orthopedic aftercare (principal); Z98.890 Other specified postprocedural states | CPT/HCPCS: 99212 ==

== ENCOUNTER 2024-07-18 10:00 | Outpatient (RCR) | payer OTHER, SELFPAY ==
--- NOTE | 2024-06-27 08:39 | MHC.PT.EP ---
[facility] [place] Office [place] Office [place] Office [address] Jamila Crane [address] [phone] F: [phone] F: [phone] F: [phone] F: [phone] Physical Therapy Plan of Care Date of Evaluation: 06/27/24 Date of Surgery: 05/26/2024 Diagnosis: s/p RTC 05/26/2024 Assessment: Patient is a 63 year old female presenting to PT s/p RTC repair 05/26/2024. He presents today with impairments in pain, ROM, strength, posture, protocol limitations. Pt's current occupation is none, with baseline physical activities including ADLs, reaching, lifting. 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 Clinical presentation today is most consistent with signs and sx associated with s/p R RTC repair 05/26/2024 and pt will benefit from skilled PT 2 week x 20 weeks to address the following problems and impairments noted upon evaluation: pain, ROM, strength, posture, protocol limitations. These problems limit the patient with the following functional activities: ADLs, reaching, lifting. The prescribed treatment plan of care is medically necessary. Co-morbidities of none were identified and taken into considerations of plan of care. Pt was educated on HEP, role of PT, prognosis, POC. Frequency and Duration: The patient will be seen 2 x week x 20 weeks Short Term Goals: Pt will demonstrate increased R shoulder ER to 45 deg at 45 deg abd in 4 weeks. Pt will demonstrate full PROM in 6 weeks. Fdc Goals: Pt will demonstrate full AROM by 12 weeks for improved ability to reach. Pt will demonstrate at least 4-/5 strength in 16 weeks for improved ability to complete ADLs. Pt will demonstrate at least 4/5 strength in 20 weeks for prepare to return to PLOF. Treatment Plan: Modalities to reduce pain, spasms and effusion. Manual therapy to restore motion and function. Therapeutic exercise to improve strength and flexibility. Neuromuscular re-education for posture and balance. Therapeutic activities to return to functional activities of daily living. Electronically signed by: Esha Bell, PT, DPT, ATC Please sign and return to therapist. Thank you for your referral.
--- NOTE | 2024-10-03 11:01 | MHC.PT.DC ---
[facility] [place] Office [place] Office [place] Office [address] Jamila Crane [address] [phone] F: [phone] F: [phone] F: [phone] F: [phone] Physical Therapy Discharge Report Diagnosis: s/p RTC 05/26/2024 Date of Surgery: 05/26/2024 Date of Evaluation: 06/27/24 Date of Discharge: 10/03/24 Treatments to Date: 3 Cancellations to Date: No Shows to Date: Discharge Status: Patient Elected to Stop Recommend MD Follow-up Visit Non-compliance Discharge Summary: Pt WAS SEEN FOR INIT EVAL AND 2 VISITS. AT LAST APPT PROGRESSING WELL WITH ROM. PER MD CAN START AROM AT 8 WKS (NEXT SESSION). BEGIN WITH PRONE THEREX Pt THEN CANCELLED LAST 3 SCHEDULED APPTS (EMERGENCY/COVID). WITH CHECK OF ORTHO NOTES, Pt HAS NOT BEEN TO ORTHO EITHER (?) Electronically signed by: PRISCILLA HARMON PT Please sign and return to therapist. Thank you for your referral.
== END 2024-10-03 11:01 | disposition home or self-care (01) ==
LOC: HO.PT 10:00
PROVIDERS: PCP Nurse Practitioner Family; Visit Provider Physician Assistant
DX: M75.101 Unspecified rotator cuff tear or rupture of right shoulder, not specified as traumatic (principal); M25.811 Other specified joint disorders, right shoulder
CPT/HCPCS: 97110; 97140; 97161

== ENCOUNTER 2024-08-01 11:48 | Outpatient (AMB) | payer OTHER, SELFPAY ==
--- NOTE | 2024-08-01 12:06 | MHC.OFFWIV ---
Intake Vital Signs 08/01/24 12:08 Height 5 ft 2 in Weight 179 lb BMI 32.7 BP 110/74 Blood Pressure Location Rt brachial Position Sitting Pulse 76 Pulse Source Pulse Oximeter Temp 98.4 F Temp Source Oral Pulse Oximetry (%) 98 Oxygen Delivery Method Room Air Intake Visit Reasons: EP COVID Intake Note: pt c/o positive covid test yesterday. Cough, chills, body aches. Symptoms started Patient Tobacco Use Status: Never used Tobacco Allergies No Known Allergies [No Known Allergies*] Allergy (Verified 08/01/24 12:06) Do you need a note to return to daycare/school/sports/work: No HPI HPI Comments History of Present Illness Details Patient is a 64-year-old female complaining of lingering COVID symptoms and cough for 8 days. She states 8 days ago, she started feeling fever and chills, she did not measure her temperature. She states she developed a cough and congestion since then as well as some ear pain and sinus pain. She states her fever and chills have subsided but she has this consistent cough. She states she is using her inhaler more than typically for relief and it does give her some short-term symptomatic relief of her shortness of breath. She states she has a history of COPD. She said she tested for COVID at home yesterday and tested positive. ON LICENSE OF [facility] Medical History Asthma Left otitis media with effusion Anxiety and depression Hx of migraines Sleep apnea Surgical History Hx of left knee surgery (10/22/23) H/O colonoscopy History of bilateral carpal tunnel release S/P EDWAR (total abdominal hysterectomy) Hx laparoscopic cholecystectomy Family History Father Asthma Mother Dementia CHF (congestive heart failure) Brother No problems noted. Son No problems noted. Son No problems noted. 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 Current occupational exposures/hazards: No Cognitive needs: No Hearing needs: No Vision needs: No Review of Systems Const All systems reviewed & are unremarkable except as noted in HPI and below Physical Exam Vital Signs: Last Vital Signs Temp 98.4 F 08/01/24 12:08 Pulse 76 08/01/24 12:08 BP 110/74 08/01/24 12:08 Pulse Ox 98 08/01/24 12:08 Oxygen Delivery Method Room Air 08/01/24 12:08 BMI result Body Mass Index 32.7 Const General: cooperative, healthy appearing, comfortable and no acute distress Orientation/consciousness: patient oriented x3 Limitations: no limitations HEENT Head: Yes normal to inspection Ears: hearing grossly normal bilaterally, external ears normal, TM's normal bilaterally, Abnormal EAC present erythema on the right and TM abnormal erythematous (No evidence of infection) on the right General nose exam: Normal external nose present, Normal nares present and No nasal discharge present Face and sinus: Yes normal facial exam and Yes sinus tenderness Mouth: Normal oral and palatal mucosa present and moist mucous membranes Throat: Yes tonsils normal, Yes uvula midline and Yes posterior oropharynx abnormal (Erythema) Eyes General: appearance normal, both eyes and all related structures Neck Neck: Yes normal visual inspection Resp Effort & Inspection: normal respiratory effort, able to speak in complete sentences, Actively coughing, no respiratory distress, not tachypneic, no tripod positioning and no use of accessory muscles Auscultation: clear to auscultation bilaterally Cardio Rate: regular rate Rhythm: regular rhythm Heart sounds: normal S1 and S2 Skin General skin exam: no rashes or lesions noted Neuro General: patient oriented x3 Extrem General: Yes normal to inspection and Yes no clubbing, cyanosis or edema Assessment & Plan Assessment & Plan (1) Atypical pneumonia: Code(s): J18.9 - Pneumonia, unspecified organism Plan: Sent flu COVID and RSV, we will send Z-Jason for atypical pneumonia and for anti-inflammatory effects this patient has a history of COPD. Recommended she continue to use her inhaler as needed for relief as well as [id number]-[id number] medications to treat her symptoms. Plan See above Orders: Orders SARS-CoV2/FLU/RSV Today J06.9 - Acute upper respiratory infection, unspecified Medications: New azithromycin For 250 mg dose pack: take 500 mg today (day 1), then 250 mg for 4 days (days 2-5) PO 6 tabs 0RF Coding Level of Care Code Est Pt Level 3 (70626) Diagnoses Atypical pneumonia J18.9
[2024-08-01 12:08] VITALS: BP 110/74; PULSE 76; TEMP 36.9; O2SAT 98; BMI 32.7
== END 2024-08-01 13:04 | disposition home or self-care (01) ==
PROVIDERS: PCP Nurse Practitioner Family; Visit Provider Physician Assistant
DX: J18.9 Pneumonia, unspecified organism (principal)

== ENCOUNTER 2024-08-01 11:48 | Outpatient (REF) | payer OTHER, SELFPAY ==
[2024-08-01 14:12] LABS: Influenza A PCR NEGATIVE (Negative); Influenza B PCR NEGATIVE (Negative); Resp Syncy Virus RNA Qual PCR NEGATIVE (Negative); SARS COV2 PCR INHOUSE POSITIVE (Negative)
== END 2024-08-01 11:49 | disposition home or self-care (01) ==
LOC: HO.LAB 11:48
PROVIDERS: PCP Nurse Practitioner Family; Visit Provider Physician Assistant
DX: J18.9 Pneumonia, unspecified organism (principal); J06.9 Acute upper respiratory infection, unspecified
CPT/HCPCS: 0241U; 99212

== ENCOUNTER 2024-11-15 07:59 | Outpatient (REF) | payer OTHER, SELFPAY ==
--- NOTE | ~2024-11-15 | XR_ITS ---
CLINICAL HISTORY: M79.672 - Pain in left foot Left foot three views Comparison: None Findings: No acute fracture or dislocation identified. No acute focal bony abnormality. No radiopaque foreign body noted. Impression: No acute bony abnormality This document has been electronically signed by: Jayce Perkins MD on 11/17/2024 23:37:18
--- NOTE | ~2024-11-15 | XR_ITS ---
CLINICAL HISTORY: M79.671 - Pain in right foot 3 views right foot Comparison: None Findings: No fractures, subluxations or dislocations. No periostitis or bony destruction. Joint space narrowing and subchondral sclerosis 1st metatarsophalangeal joints with small osteophytes.No marginal erosions. Calcaneus and subtalar joint intact. Mild subchondral sclerosis talonavicular joint. Minimal spurring. Posterior and plantar calcaneal enthesophytes. Normal bone mineralization and soft tissues. Normal pre-Achilles fat pad. No radiopaque foreign body. Impression: 1. Non erosive osteoarthritic changes as described. 2. Posterior and plantar calcaneal enthesophytes. This document has been electronically signed by: Choco Bradshaw MD on 11/17/2024 22:22:30
[2024-11-15 09:58] LABS: MANUAL DIFF FLAG NO
[2024-11-15 10:02] LABS: Appearance Urine Clear; Color Urine Yellow; Glucose Urine UA Negative (Negative); Leukocyte Esterase Urine Negative (Negative); Nitrite Urine Negative (Negative); PH 5.5 (5.0-9.0); Specific Gravity - Urine 1.025 (1.005-1.025); Urine Blood Negative (Negative); Urine Ketones Negative (Negative); Urine Protein Negative (Neg-Trace)
[2024-11-15 10:08] LABS: Basophils Absolute Auto 0.1 X10*3/uL (0.0-0.2); Basophils Percent Auto 1.6 % (0-2); Eosinophils Absolute Auto 0.2 X10*3/uL (0.0-0.4); Eosinophils Percent Auto 3.8 % (0-4); Hematocrit 41.5 % (37.0-47.0); Hemoglobin 13.7 g/dl (12.0-16.0); Imm Gran Abs Auto 0.02 X10*3/uL (0.00-0.03); Imm Gran Pct Auto 0.5 % (0.0-0.4); Lymphocytes Absolute Auto 1.2 X10*3/uL (1.2-4.9); Lymphocytes Percent Auto 26.9 % (20-40); Mean Corpuscular Hemoglobin 29.9 pg (27.0-33.0); Mean Corpuscular Volume 90.6 fL (80.0-98.0); Mean Platelet Volume 10.2 fL (9.4-12.3); Monocytes Absolute Auto 0.3 X10*3/uL (0.1-1.2); Monocytes Percent Auto 7.7 % (2-11); Neutrophils Absolute Auto 2.6 x10*3/uL (2.0-8.3); Neutrophils Percent Auto 59.5 % (45-73); Platelet Count 393 X10*3/uL (160-400); Red Blood Count 4.58 X10*6/uL (4.20-5.50); White Blood Count 4.4 X10*3/uL (4.8-10.8)
[2024-11-15 10:25] LABS: Alanine Aminotransferase 23 U/L (0-31); Albumin Level 4.4 g/dL (3.5-5.0); Anion Gap 11 (12-20); Aspartate Amino Transferase 27 U/L (5-31); Bilirubin Total 0.3 mg/dL (0.0-1.0); Blood Urea Nitrogen 20 mg/dL (9-16); Carbon Dioxide 24 mmol/L (22-29); Chloride 110 mmol/L (96-108); Cholesterol 236 mg/dL (<200); Estimated Glomerular Filt Rate > 60; Glucose Fasting 94 mg/dL (60-99); HDL Cholesterol 54 mg/dL (>40); LDL Cholesterol Calculated 156 mg/dL (<100); Potassium 3.9 mmol/L (3.3-5.1); Sodium 141 mmol/L (135-145); Total Protein 7.8 g/dL (6.5-8.0); Triglycerides 130 mg/dL (<150); Uric Acid 4.8 mg/dL (2.4-5.7)
[2024-11-15 10:31] LABS: Alkaline Phosphatase 123 U/L (39-117)
[2024-11-15 10:43] LABS: TSH reflex Free T4 0.68 uIU/mL (0.32-4.0)
== END 2024-11-15 08:00 | disposition home or self-care (01) ==
LOC: HO.HMGCX 07:59
PROVIDERS: PCP Nurse Practitioner Family; Visit Provider Nurse Practitioner Family
DX: M72.2 Plantar fascial fibromatosis (principal); M79.671 Pain in right foot; M79.672 Pain in left foot; F41.8 Other specified anxiety disorders
CPT/HCPCS: 36415; 73630; 80053; 80061; 81003; 84443; 84550; 85025; 96127; 99212

== ENCOUNTER 2024-11-15 07:59 | Outpatient (AMB) | payer OTHER, SELFPAY ==
--- NOTE | 2024-11-15 08:03 | A.OFFPC_ITS ---
Vital Signs 11/15/24 08:04 Height 5 ft 2 in Weight 186 lb BMI 34.0 BP 112/72 Blood Pressure Location Lt brachial Position Sitting Pulse 89 Pulse Source Pulse Oximeter Pulse Oximetry (%) 98 Intake Visit Reasons: 6M F/U Intake Note: pt is here for 6 mon f/up Client Strategist Required: No Accompanied by: Self / Same As Patient Allergies No Known Allergies [No Known Allergies*] Allergy (Verified 11/15/24 08:04) Tobacco use date assessed: 11/15/24 Dental Screening Dental Screen Date: 11/15/24 Did you have a dental visit in the last 12 months?: Yes Did you have a dental problem in the last 6 months where you did not have access to dental care?: No Was dental information given to patient?: Patient has dentist HPI 6M F/U HPI Details Chief Complaint The patient presents with left heel pain and insomnia. History of Present Illness The patient is a 64-year-old female presenting with ongoing left heel pain, particularly prominent in the mornings, compatible with plantar fasciitis. This pain has been present for approximately six months and is associated with a noticeable limp. The patient reports limited footwear options due to discomfort and has not previously undergone foot radiography for the left foot. Additionally, the patient reports pain in the right first metatarsophalangeal (MTP) joint, which may be secondary to compensatory mechanisms due to left foot discomfort. Previously, a referral to podiatry was planned but not executed due to insurance issues. The patient has not engaged in physical therapy for these issues. Insomnia is also reported; although under psychiatric care, the patient currently receives no pharmacotherapy from psychiatry. She has previously expressed concerns about weight gain from sleep medications and has been using low dose trazodone at night on an as-needed basis for sleep disturbances. Social History Health Maintenance Review of Systems - Psychiatric: Reports insomnia. -denies any CP, SOB, N/V, redness to tracy nts, or swelling to joints -denies any SI or HI Physical Exam General: Cooperative, healthy appearing, comfortable, no acute distress and well developed Orientation: Patient oriented x3 Limitations: Limping Head: Normal to inspection Ears: Hearing grossly normal bilaterally Nose: Normal external nose present Face and sinus: Normal facial exam Eyes: Appearance normal, both eyes and all related structures Neck: Normal visual inspection and Yes full ROM Respiratory: Normal respiratory effort and able to speak in complete sentences. Clear to auscultation bilaterally Cardiovascular: Regular rate and rhythm. Normal S1 and S2 GI: Normal to inspection. Soft to palpation and nontender Skin: No rashes or lesions noted Neuro: Patient oriented x3 Extremities: Positive dorsalis pedis bilaterally. Left foot with dorsiflexion of toes and palpation of heel tenderness noted. Right foot with palpation of first MTP joint tenderness noted. No active swelling or erythema to this region. No edema to ankles. Results Plan - Order X-ray for the left foot to evalu ate the plantar fasciitis. - Order X-ray for the right foot to asse ss the condition of the first MTP joint. - Perform lab tests including uric acid level to investigate potential gout. - Provide referral for podiatry consulta tion. - Provide referral for physical therapy to address musculoskeletal issues. - Continue use of low-dose trazodone PRN at night for insomnia. Patient was informed and verbally consented to the use of an ambient scribe for clinic note documentation during this visit. Discussion Notes I discussed with the patient the potential diagnosis of plantar fasciitis for the left heel pain as well as osteoarthritis or gout as possible causes for the right first MTP joint pain. I explained the need for X-rays to further assess these conditions and obtain a clearer diagnosis. We also discussed the significance of the uric acid test in evaluating the presence of gout. I addressed her footwear limitations due to discomfort and emphasized the potential benefits of physical therapy in her treatment plan. I acknowledged her concerns about weight gain with medications and confirmed her current use of low-dose trazodone for insomnia. Follow-up is planned in six months. Patient Instructions - Follow up with podiatry as referred. - Attend physical therapy sessions as re commended. - Continue taking trazodone as needed fo r sleep. - Return for follow-up in six months or sooner if symptoms worsen. - Contact our office if new symptoms prerna se or if current symptoms do not improve. PFSH Medical History Asthma Left otitis media with effusion Anxiety and depression Hx of migraines Sleep apnea Surgical History Hx of left knee surgery (10/22/23) H/O colonoscopy History of bilateral carpal tunnel release S/P EDWAR (total abdominal hysterectomy) Hx laparoscopic cholecystectomy Family History Father Asthma Mother Dementia CHF (congestive heart failure) Brother No problems noted. Son No problems noted. Son No problems noted. 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 Current occupational exposures/hazards: No Cognitive needs: No Hearing needs: No Vision needs: No Questionnaire Thrive Questionnaire Date Thrive assessed: 11/15/24 I am a: Patient What is your living situation today?: I have a steady place to live Within the past 12 months, did the food you bought not last and you didn't have the money to get more?: I choose not to answer this question Within the past 12 months, did you worry whether your food would run out before you got money to buy more?: Never true Do you have trouble paying for medicines?: No Do you have trouble getting transportation to medical appointments?: Yes Do you have trouble paying your heating and electricity bill?: No Do you have trouble taking care of your child, family member or friend?: No Do you have trouble with day-to-day activities such as bathing, preparing meals, shopping, managing finances, etc.?: No Are you currently unemployed and looking for a job?: No Are you interested in more education?: No Please select the resources that you would like help with: Transportation Currently or been in a relationship where the following occur: No concerns reported THRIVE Score: 1 AUDIT C Alcohol Use Questionnaire (AUDIT-C) 1. How often do you have a drink containing alcohol?: Never 2. How many drinks containing alcohol do you have on a typical day when you are drinking?: 1 or 2 Total Score: 0 Score Reviewed/Action Taken: Yes RENAN-7 AMB Questionnaire RENAN-7 Date RENAN - 7 assessed: 11/15/24 Feeling nervous, anxious, or on edge: 1 = Several days Not being able to stop or control worryin = Several days Worrying too much about different things: 0 = Not at all Trouble relaxin = Several days Being so restless that it is hard to sit still: 0 = Not at all Becoming easily annoyed or irritable: 1 = Several days Feeling afraid as if something awful might happen: 0 = Not at all Total RENAN-7 score (0-4 normal; 5-9 mild; 10-14 moderate; 15-21 severe): 4 Source: Developed by Drs. Minh Fraser, Naty Jesus, Stewart Mora and colleagues, with an educational concetta from [employer]. RENAN-7 Assessment Billing RENAN-7 Assessment Tool: RENAN-7 Assessment 07083 Physical exam (Primary Care) Vital Signs: Last Vital Signs Pulse 89 11/15/24 08:04 BP 112/72 11/15/24 08:04 Pulse Ox 98 11/15/24 08:04 BMI result Body Mass Index 34.0 Tobacco/Smoking Status: Tobacco use Status Tobacco use date assessed 11/15/24 11/15/24 08:05 Patient Tobacco Use Status Never used Tobacco 11/15/24 08:05 e-Cigarette/Vaping Use Never Used 11/15/24 08:05 Thrive Assessment: Date of Thrive Assessment Date Thrive assessed 11/15/24 11/15/24 08:05 Currently or been in a relationship where the following occur: No concerns reported Coding Level of Care Code Est Pt Level 3 (49890) Diagnoses Plantar fasciitis of left foot M72.2 Right foot pain M79.671 Pain of left heel M79.672 Anxiety with depression F41.8 Additional Codes RENAN-7 Assessment Billing - RENAN-7 Assessment Tool: RENAN-7 Assessment 26041 ([id number]) Assessment & Plan Assessment & Plan (1) Plantar fasciitis of left foot: Code(s): M72.2 - Plantar fascial fibromatosis Category: Medical (2) Right foot pain: Code(s): M79.671 - Pain in right foot Category: Medical (3) Pain of left heel: Code(s): M79.672 - Pain in left foot Category: Medical (4) Anxiety with depression: Code(s): F41.8 - Other specified anxiety disorders Category: Medical Plan . Orders: Orders XR foot LT min 3V Today M79.672 - Pain in left foot Complete Blood Count Auto Diff Today F41.8 - Other specified anxiety disorders Comprehensive [place]. Panel Fast Today F41.8 - Other specified anxiety disorders Lipid Panel Today F41.8 - Other specified anxiety disorders Uric Acid Today M79.671 - Pain in right foot PT Evaluation and Treatment Today M72.2 - Plantar fascial fibromatosis XR foot RT 2V Today M79.671 - Pain in right foot TSH reflex Free T4 Today F41.8 - Other specified anxiety disorders UA CC w/rflx Micro + Cult Today F41.8 - Other specified anxiety disorders Referrals Podiatry Referral M72.2 - Plantar fascial fibromatosis Medications: New trazodone 100 mg PO BEDTIME PRN 30 tabs 2RF sleep 30 days Refilled sumatriptan succinate do not exceed 4 doses per 24 hrs 50 mg PO Q6-8H PRN 15 tabs 1RF migraine headache
[2024-11-15 08:04] VITALS: BP 112/72; PULSE 89; O2SAT 98; BMI 34.0
== END 2024-11-15 08:34 | disposition home or self-care (01) ==
PROVIDERS: PCP Nurse Practitioner Family; Visit Provider Nurse Practitioner Family
DX: M72.2 Plantar fascial fibromatosis (principal); M79.671 Pain in right foot; M79.672 Pain in left foot; F41.8 Other specified anxiety disorders

== ENCOUNTER → 2024-11-15 08:56 | Outpatient (BNV) | payer OTHER, SELFPAY | PROVIDERS: PCP Nurse Practitioner Family; Visit Provider Radiology Diagnostic Radiology | DX: M79.671 Pain in right foot (principal) | CPT/HCPCS: 73630 ==

== ENCOUNTER 2024-12-04 08:00 | Outpatient (RCR) | payer OTHER, SELFPAY ==
--- NOTE | 2024-11-28 14:35 | MHC.PT.EP ---
[facility] [place] Office [place] Office [place] Office [address] Jamila Crane [address] [phone] F: [phone] F: [phone] F: [phone] F: [phone] Physical Therapy Plan of Care Date of Evaluation: 11/28/24 Date of Surgery: n/a Diagnosis: plantar fasciitis L foot Assessment: Patient is a 64 year old female presenting to PT with complaints of pain in her L foot. Pt reports onset of pain began 2 years ago due to insidious onset. She presents today with impairments in pain, ankle ROM, gastroc length, tenderness to palpation. Pt's current occupation is none, with baseline physical activities including ambulating, stair negotiation, ADLs. Pt expresses care home goal of reducing pain, and is motivated to work towards this in PT. Clinical presentation today is most consistent with signs and sx associated with possible L foot plantar fasciitis and pt will benefit from skilled PT 2 week x 4 weeks to address the following problems and impairments noted upon evaluation: pain, ankle ROM, gastroc length, tenderness to palpation. These problems limit the patient with the following functional activities: ambulating, stair negotiation, ADLs. The prescribed treatment plan of care is medically necessary. Co-morbidities of none were identified and taken into considerations of plan of care. Pt was educated on HEP, role of PT, prognosis, POC. Frequency and Duration: The patient will be seen 2 x week x 4 weeks Short Term Goals: Pt will demonstrate improved L ankle ROM to equal B without pain in 2 weeks. Pt will demonstrate improved L ankle MMT strength by 1/3 grade in 2 weeks. Pt will demonstrate decreased tenderness to palpation on calcaneus in 2 weeks. [employer] Work[employer] Goals: Pt will demonstrate improved LEFI score by 9 points in 4 weeks for improved functional mobility. Pt will demonstrate ability to ambulate with normal mechanics in 4 weeks and min to no pain for return to PLOF. Pt will demonstrate ability to complete ADLs and household activities with min to no pain in 4 weeks for return to PLOF. Treatment Plan: Modalities to reduce pain, spasms and effusion. Manual therapy to restore motion and function. Therapeutic exercise to improve strength and flexibility. Neuromuscular re-education for posture and balance. Therapeutic activities to return to functional activities of daily living. Electronically signed by: Esha Bell, PT, DPT, ATC Please sign and return to therapist. Thank you for your referral.
--- NOTE | 2024-12-29 08:11 | MHC.PT.DC ---
[facility] [place] Office [place] Office [place] Office [address] Crane [address] [phone] F: [phone] F: [phone] F: [phone] F: [phone] Physical Therapy Discharge Report Diagnosis: plantar fasciitis L foot Date of Surgery: n/a Date of Evaluation: 11/28/24 Date of Discharge: 12/29/24 Treatments to Date: 3 Cancellations to Date: 5 No Shows to Date: 0 Discharge Status: Patient Elected to Stop Discharge Summary: Pt cancelled her last 5 scheduled PT visits and did not reschedule. Pt to be d/c/ Electronically signed by: Esha Bell, PT, DPT, ATC Please sign and return to therapist. Thank you for your referral.
== END 2024-12-29 08:11 | disposition home or self-care (01) ==
LOC: HO.PTCHIC 08:00
PROVIDERS: PCP Nurse Practitioner Family; Visit Provider Nurse Practitioner Family
DX: M72.2 Plantar fascial fibromatosis (principal)
CPT/HCPCS: 97110; 97140; 97161

== ENCOUNTER 2025-02-09 06:50 | Outpatient (REF) | payer OTHER, SELFPAY ==
--- OUTSIDE RECORDS SUMMARY | 2025-02-09 06:51 | XMS_ITS | Clinical Summary ---
Author Organization [address] [facility] Address [address] [place] [address] Phone Care Team Providers Care Maintenance Of Way Supervisor Name Role Phone Calos Huertas NP Primary Care Provider [phone] Allergies No known active allergies Medications Hospital, Clinic, or Other Facility Administered Medication Ordered Dose Route Frequency Start Date End Date Status lidocaine (PF) (XYLOCAINE-MPF) 1 % injection 0.5 mLIndications:Planta r fascial fibromatosis .5 mL inj Once PRN Procedure 01/31/2025 01/31/2025 Ended triamcinolone acetonide (KENALOG-40) 40 mg/mL injection 40 mgIndications:Planta r fascial fibromatosis 40 mg IAtc Once PRN Procedure 01/31/2025 01/31/2025 Ended Encounters Date Type Department Care Team Description 01/31/2025 3:00 PM EDT Consult Orthopedic Surgery [facility] [address] [facility] [address] [place] [address] [phone] Mika Murillo DPM Pain in both feet (Primary Dx); Equinus contracture of left ankle; Hallux rigidus, right foot; Plantar fascial fibromatosis from Last 3 Months Social History Tobacco Use Types Packs/Day Years Used Date Smoking Tobacco: Never Assessed Comments Unknown Sex and Gender Information Value Date Recorded Sex Assigned at Not on file Legal Sex Female 7:59 AM EST Gender Identity Not on file Sexual Orientation Not on file Last Filed Vital Signs Vital Sign Reading Time Taken Comments Blood Pressure - - Pulse - - Temperature - - Respiratory Rate - - Oxygen Saturation - - Inhaled Oxygen Concentration - - Weight 80.3 kg (177 lb) 01/31/2025 3:08 PM EDT Height 157.5 cm (5' 2 ) 01/31/2025 3:08 PM EDT Body Mass Index 32.37 01/31/2025 3:08 PM EDT Plan of Treatment Upcoming Encounters Date Type Department Care Team (Late st Contact Info) Description 02/19/2025 2:30 PM EDT Office Visit Orthopedic Surgery - [place] [address] [phone] Mika Murillo, MARIAH [address] [address] Health Maintenance Due Date Last Done Comments Breast Cancer Screening 1960 Cervical Cancer Screening: Pap Smear 1983 Pneumococcal Vaccine: 50+ Years (1 of 1 - PCV) 2012 Colorectal Cancer Screening: Colonoscopy 12/12/2024 Depression Screening 12/12/2024 HIV Screening 12/12/2024 Hepatitis C Screening 12/12/2024 Social Influencers of Health Screening 12/12/2024 DTaP,Tdap,and Td Vaccines (2 - Td or Tdap) 12/15/2027 12/15/2017 RSV Immunization Adult Patients Completed 11/19/2023 Zoster Vaccines Completed 11/19/2023, 08/28/2023 COVID-19 Vaccine Completed 08/24/2024, 10/2023, 12/19/2022, Additional history exists Influenza Vaccine Completed 08/24/2024, , 12/19/2022, Additional history exists HIB Vaccines Aged Out No longer eligi ble based on patient's age to complete this topic HPV Vaccines Aged Out No longer eligi ble based on patient's age to complete this topic Hepatitis A Vaccines Aged Out No long er eligible based on patient's age to complete this topic Hepatitis B Vaccines Aged Out No long er eligible based on patient's age to complete this topic IPV Vaccines Aged Out No longer eligi ble based on patient's age to complete this topic MMR Vaccines Aged Out No longer eligi ble based on patient's age to complete this topic Meningococcal ACWY Vaccine Aged Out N o longer eligible based on patient's age to complete this topic Meningococcal B Vacine Aged Out No lo nger eligible based on patient's age to complete this topic Pneumococcal Vaccine: Pediatrics (0 to 5 Years) and At-Risk Patients (6 to 64 Years) Aged Out No longer eligible based on patient's age to complete this topic RSV Immunization Patients Under 20 months Aged Out No longer eligible based on patient's age to complete this topic Varicella Vaccines Aged Out No longer eligible based on patient's age to complete this topic Procedures Procedure Name Priority Date/Time Associated Diagnosis Comments INJECTION TENDON OR LIGAMENT Routine 01/31/2025 3:00 PM EDT Plantar fascial fibromatosis from Last 3 Months Results * Injection tendon or ligament (01/31/2025 3:00 PM EDT) Narrative Mika Murillo DPM - 01/31/2025 3:00 PM EDT Mika Murillo DPM ? 01/31/2025 ??6:32 PM Injection tendon or ligament Indications: pain Details: 25 G needle Medications: 0.5 mL lidocaine (PF) 1 %; 40 mg triamcinolone acetonide 40 mg/mL Informed Consent: ??Laterality: ??Left Mika Murillo DPM IN CLINIC/BEDSIDE ORDERABLE S Final Result from Last 3 Months Insurance [facility] Care Teams Maintenance Of Way Supervisor Relationship Specialty Start Date End Date Calos Huertas NP [address] [facility] [place] PCP - General Family Medicine 12/12/24
--- OUTSIDE RECORDS SUMMARY | 2025-02-09 06:52 | XMS_ITS | Data Portability ---
Author Organization [facility], , [facility] Address [address] [place] [address] Care Team Providers Care Farm Facility Manager Name Role Phone MARIA DEL ROSARIO PENNINGTON Primary Care Provider [phone] Assessment Encounter Date Assessment Date Assessment LastModified by Organization Details LastModified Time 12/16/2015 12/16/2015 A:? ? ?Pt. referred with R cervical, scapular, shoulder & upper arm intermittent? ? ? pain 05/17 x 3 mos.? ? ? 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 ? ? She has not been to work in 2 weeks due to the pain yet her symptoms still seem to be intense.? ? ? Pt. also reports a h/o migraines since17 y/o.? ? ? She is a stomach sleeper and will need to break this habit.? ? ? NDI score is 17/50, SPADI score is 60/130.? ? ? Clinical assessment reveals; minor loss of rotations and neck ret/ext, muscle tenderness and pain in the region of the paracervicals, levator scapulae, scalene? ? ?and rhomboid.?Pt. unable to tolerate segmental mobility testing due to high pain levels, +quadrant sign, full shoulder ROM with 4/5 UE strengthening.? This pain appears to be originating from her cervical spine.? ? ? Pt. would benefit from skilled PT to reduce pain and restore function.? ? ? GOALS: 1.? ? ? Independent with HEP and abolish upper arm pain in 2 weeks. 2.? ? ? Pain level 3-4/10 with increased cervical ROM in 3 weeks. 3.? ? ? Able to work, sleep, use UEs and move her neck comfortably for ADLs in 6 weeks. P: PT 1-2x/week for 4-6 weeks.? ? ? Treatment plan: manual therapy, ROM, posture correction, exercise, modalities. Not available 12/16/2015 14:49:46 12/23/2015 12/23/2015 A: Neck and shoulder pain 8/10 on arrival, 6/10 on departure.? ? ? Pt. returns to work? ? ?this Sat.? ? ?and reports her pain has not improved being out of work but also notes? ? ?that R arm pain comes on while watching tv with head turned R to see it.? ? ? Pt. educated about neutral Cspine and will make adjustments at home.? ? ? She has a very limited tolerance for manual therapy due to high pain levels. P: Cont. Not available 12/23/2015 10:24:21 01/08/2016 01/08/2016 A: Pain reduced to 5/10.? ? ? Decided to start pt. on shoulder strengthening exercises as she does have to work with her arms overhead for much of the day, she managed these without pain.? ? ? Pt. scheduled to work again for consecutive days over the weekend. P:? ? ?Cont. Not available 01/08/2016 11:24:05 Plan of Treatment Reminders Order Date Submit Date Provider Last Modified By Organization Details Last Modified Time Details Appointments None recorded. Lab None recorded. Referral physical therapist referral - Right hip pain [address], [address] [place], [address], 8 16:21:34 Procedures None recorded. Surgeries None recorded. Imaging XR, hip, bilateral - Right hip pain 2017 018 [facility] (Imaging), [address] [place], [address], 8 10:03:20 Medication Orders sumatripta n 50 mg tablet 2017 018 [facility]FACE [id number], [address] [place], [address], 8 14:43:51 topiramate 50 mg tablet 2017 018 INTERFACE [id number], [address] [facility] [place], [address], 8 14:43:49 Patient TargetsNo targets recorded. Patient InstructionsNo instructions recorded. Reason for Referral Physical Therapist Referral for Pain in right hip joint Right hip pain Referring Physician: Odette Huang, Family Medicine, Encounter Date: 09/20/2018 Results Created Date Observation Date Name Description Value Unit Range Abnormal Flag Note LastModifiedBy Organization Detail LastModifiedTime 11/06/20 15 10/29/2015 scree nina- bilat eral mammo graph y OBSERV ATION: Screen ing Mammog kylie, Bilate ral with utiliz ation of comput er aided detect ion. Histor y: Routin e Compar grisel: dating back to 2009. Findin gs: No suspic ious masses or suspic ious cluste red microc alcifi cation s are presen t. No tristan ectura l distor tion or signif icant asymme try is presen t. IMPRES WALDO: Normal negati ve. Annual screen ing is recomm ended. Patien t notifi ed by letter . BI-RAD S CATEGO RY 1 - NEGATI VE Densit y: 2: SCATTE RED FIBROG LANDUL AR TISSUE Code: G0202, 00069 POS: [facility] Electr onical ly signed Readin g Physic anuj: Matthew Renteria [facility] (Imaging) [address] , [place], [address], 11/29/2015 13:22:59 09/26/20 18 09/26/2018 XR, hip, bilat eral OBSERV ATION: Histor y: 58-yea r-old female with right hip pain. No trauma . Compar grisel: None. Right Hip Radiog raph Findin gs: 2 views obtain ed. No acute fractu re or malali gnment . Joint space is mainta ined. No destru ctive bone lesion s or AVN. Soft tissue s are normal . Impres waldo: No findin gs to accoun t for the patien t's pain. POS [facility] Electr onical ly signed Giovanni Edward anuj: Leonidas chauhan MD [facility] (Imaging) [address] [place], [address], 09/26/2018 13:28:19 Result Notes None recorded. Problems Name Problem SNOMED Code Status Onset Date Resolution Date Notes Provider Name and Address Organization Details Recorded Time Major depressive disorder 385569252 Active Maria Del Rosario Pennington NP [address] [place], [address], [facility] 6 13:22:42 Migraine 85531058 Active Maria Del Rosario Pennington NP [address] [place], [address], [facility] 6 13:35:21 Problem Notes None recorded. Procedures Surgical History Date Name Laterality Status Provider Name and Address Organization Details Recorded Time 12/16/19 16 Treatment and Advice completed Ayala Dominguez Ms, PT [address] [place], [address], [facility] 12/16/2015 14:40:46 12/02/19 16 Tassoni - Colonoscopy completed Mike Rosado RN [facility] 12/02/2015 14:04:24 11/08/19 07 Laparo-asst vag hysterectomy completed Tori Priest RN [facility] 01/15/2016 14:29:15 Imaging Results Imaging Date Name Status LastModified by Organiz ation Details LastModified Time 10/29/2015 screening-bilat eral mammography completed [facility] (Imaging) [address] [place], [address], 11/29/2015 13:22:59 09/26/2018 XR, hip, bilateral completed [facility] (Imaging) [address] [place], [address], 09/26/2018 13:28:19 Procedure Notes None recorded. Medical Equipment None Reported. Allergies No known drug allergies Medications Name Sig Start Date Stop Date Status Note LastModified by Organization Details LastModified Time ondansetr on HCl 4 mg tablet 09/20 completed Not Available Not Available Not Available sumatript an 50 mg tablet TAKE 1 TAB BY MOUTH AT ONSET OF MIGRAINE .MAY REPEAT IN 2 HOURS IF NOT IMPROVED .MAX DOSE OF 200MG/DA Y active Not Available Not Available No t Available topiramat e 25 mg tablet take 1 cap by mouth daily x 1 week, then increase to 1 tab bid x 1 week; 2014 active Not Available Not Available Not Avai lable butalbita l-acetami nophen-ca ffeine 50 mg-325 mg-40 mg tablet 09/20 completed Not Available Not Available Not Available citalopra m 20 mg tablet Take 1 tablet every day by oral route at bedtime. 2014 active Pt decided not to take it due to reading about side effects. Not Available Not Available Not Available Topamax 25 mg sprinkle capsule Take 2 capsules twice a day by oral route. active Not Available Not Available No t Available oxycodone 5 mg tablet 09/20 completed Not Available Not Available Not Available topiramat e 50 mg tablet Take 1 tablet twice a day by oral route for 90 days. active Not Available Not Available No t Available Vitals Date Recorded Body weight Heart rate Systolic blood pressure Diastolic blood pressure Provider Name and Address Organization Details Last Updated DateTime 09/20/2018 11066.43 g 76 /min 114 mm[Hg] 70 mm[Hg] Candida Babin MA [facility] 09/20/2018 14:27:23 Social History Question Answer Notes LastModified by Organizat ion Details LastModified Time Tobacco Smoking Status Never Smoker Kirstin Felix LPN null, [facility] 04/12/2015 09:03:55 What Is Your Level Of Alcohol Consumption? None Information not available 04/12/2015 What Is Your Level Of Caffeine Consumption? Heavy 5-6 Cups A Day; Encouraged To Cut Back [email or web address] Information not available 04/12/2015 How Much Tobacco Do You Chew? None [email or web address] Information not available 04/12/2015 What Type Of Diet Are You Following? REGULAR [email or web address] Information not available 04/12/2015 Which Illicit Or Recreational Drugs Have You Used? 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 0 Information not available 04/12/2015 Are There Any Guns Present In Your Home? No [email or web address] Information not available 04/12/2015 Live Alone Or With Others? With Others [email or web address] Information not available 04/12/2015 Patient Has Health Care Proxy Signed And In Chart No Ppwk Given 04/2015; Will Be Juan Luis [phone] [email or web address] Information not available 04/12/2015 Marital Status 32 Years-[facility] [email or web address] Information not available 04/12/2015 Mosquito Repellent Used Routinely Yes [email or web address] Information not available 04/12/2015 What Was The Date Of Your Most Recent Tobacco Screening? 09/20/2018 Information not available 05/31/2019 How Many Children Do You Have? 2 [email or web address] Information not available 04/12/2015 Seat Belts Used Routinely Yes [email or web address] Information not available 04/12/2015 Are You Sexually Active? Yes Information not available 04/12/2015 Smoke Alarm In Home Yes [email or web address] Information not available 04/12/2015 General Stress Level Medium [email or web address] Information not available 04/12/2015 Do You Use Sunscreen Routinely? Yes [email or web address] Information not available 04/12/2015 Sex: Unknown Functional Status None recorded. Mental Status None recorded. Family History Relationship Description Onset Age of this Age Resolved Age Notes LastModified by Organization Details LastModified Time Father Asthma severe , never tob, etoh; lives in [place] [email or web address] Not available 11/29/2015 13:23:17 Mother Hyperlipidem ia [email or web address] Not available 2015 13:23:17 Mother Myocardial infarction 60s [email or web address] Not available 11/29 13:23:17 Mother Major depressive disorder [email or web address] Not available 2015 13:23:17 Mother Dementia lives w vivianabarry t [email or web address] Not available 09/21/2018 10:15:42 Brother Shotgun accident 21 mugged [email or web address] Not available 2015 13:23:17 Paternal Aunt Malignant tumor of breast 69, alive and well [email or web address] Not available 11/29/2015 13:23:17 Notes:no colon cancer no SI Medical History No medical history recorded. Gynecological History Statement/Question Response Menses Monthly N Hysterectomy Y History of Abnormal Pap N Age at Menarche 16 Date of LMP Obstetrics History GPAL:G 0 P 0 0 0 0 Immunizations Vaccine Type Date Status Note Provider Chinedu hidalgo and Address Organization Details Recorded Time Influenza, split virus, quadrivalent, PF 09/20/2018 completed Not Available [facility] 0 02:38:08 Past Encounters Encounter ID Performer Location Encounter Start Date Encounter Closed Date Diagnosis/Indication Diagnosis SNOMED-CT Code Diagnosis ICD10 Code Diagnosis Note [id number] Sienna Petersen M.D. , [facility], OFFICE [address] [place] [address] 04/12/2015 08:46:31 04/12/2015 14:01:20 Migraine 15449375 migraine: chronic since teenage nausea, photophobi a will lock herself in closet has needed ER care as can be very severe Neuro ~2010 h/o imitrex and didn't help she does not think she was on propranolo l or amitriptyl ine in the past +blinking lights, +aura Screening mammography 38604336 Major depr essive disorder 997175042 Ongoing worsening depression with anxiety PHQ9 score 10 + 0 Discussed recommenda tion for multidisci plinary management including behavioral health, antidepres edwige mediations , and exercise and sleep hygiene. Absolute abstinence of alcohol and drugs strongly recommende d. We discussed how to take antidepres sants including the need to taper on and taper off this medicine under the guidance of a medical or behavioral health specialist . Your primary care provider needs to be updated with any changes to your medicine if you are working with a specialist as well. Side effects can be found on package insert but include and are not limited to nausea, dry mouth, abdominal discomfort , vomiting, diarrhea, dizziness, headache, weight gain or loss, urinary retention, sexual side effects and increased suicidal ideation in young adults; in addition some antidepres sants can lower one's seizure threshold. The patient contracts for safety and knows to contact the office or go to ED immediatel y if suicidal ideation develops. Follow-up in 6-8 weeks, sooner as needed. list of therapists provided if she wishes to see one to help with sleep, dep and coping, very tearful at home, no obvious support system (cries alone in her room) Insomnia [id number] troub le falling asleep in setting of depression trial of c [id number] JUNIOR Garrett, [facility], OFFICE [address] [place] [address] 10/29/2015 10:41:25 10/29/2015 12:27:23 Screening for malignant neoplasm of colon 600430497 Z12.11 Referral for a DIRECT booked colonoscop y. This patient is a healthy ASA Class 1 or 2 patient (only mild systemic disease), or a STABLE, well controlled insulin dependent diabetic. They do not have serious cardiac disease ie WI/angiopl asty within 1 year, symptomati c CHF; renal failure with CKD 4 or 5; take Coumadin, Plavix, Aggrenox, etc; nor take chronic narcotics. [Patients who take chronic narcotics should be referred to [facility] for a propofol procedure due to possible inability to sedate adequately with conscious sedation.] Screening for disorder 082532217 Z11.59 Adult heal th examination 811979018 Z00.00 see Risk Assessment and Lifestyle Change Counseling section above Counseling 739108949 Z71 .9 Major depr essive disorder 488008587 F32.9 significan t improvemen t since starting work and meeting friends in the area. did not try celexa. considerin g therapy Headache 24218127 R51 [id number] JUNIOR Garrett, [facility], OFFICE [address] [place] [phone] 11/29/2015 10:34:34 11/29/2015 11:55:10 Shoulder pain 73167171 M25.511 Migraine 41371226 G43.90 9 continue topomax Excedrin migraine as needed - imitrex has not helped in the past Neck pain 79615022 M54.[id number] [facility], [facility] [address] [place] [address] 12/02/2015 07:56:37 12/02/2015 13:07:03 [id number] Ayala Dominguez Ms, PT Physical Therapy, [address] [address] 12/16/2015 09:03:18 12/16/2015 14:51:38 Neck pain 60059944 M54.2 Shoulder pain 03227525 M 25.091 [id number] Ayala Dominguez Ms, PT Physical Therapy, [address] [address] 12/23/2015 09:10:00 12/23/2015 10:33:41 Neck pain 28310280 M54.2 Shoulder pain 57412504 M 25.181 [id number] Ayala Dominguez Ms, PT Physical Therapy, [address] [address] 01/08/2016 09:01:26 01/08/2016 11:43:02 Neck pain 06894904 M54.2 Shoulder pain 12687384 M 25.690 [id number] Odette Huang PA-C , [facility], OFFICE [address] [place] [phone] 09/20/2018 14:05:58 09/20/2018 14:48:50 Pain in right hip joint [id number] 52577 M25.551 - will start with xray and physical theraopy- can continue with ibuprofen as needed for pain- return to office if not improving- recommend daily stretching Migraine 01074287 G43.90 9 - restart topamax 1 tablet daily for 7 days and then increase to twice daily- sumatripta n for migraines at onset- return to office if migraines are not improving in 1-2 months Active or passive immunization 422607404 Z23 Health Concerns Section Related Observation LastModified by Organization Detai ls LastModified Time None Recorded Concern Status LastModified by Organization Details LastModified Time None Recorded Advance Directives Directive None Recorded Payers Encounter Date Sequence Insurance Name Policy Number Policy Meza Covered Member ID Meza Member ID Guarantor Name 12/02/2015 1 [facility] - DIRECT CONNECTORCARE TYPE II (HMO) Lisa Benito [id number] Lisa Benito 12/16/2015 1 [facility] - DIRECT CONNECTORCARE TYPE II (HMO) Lisa Benito [id number] Lisa Garciaaldo 12/23/2015 1 [facility] - DIRECT CONNECTORCARE TYPE II (HMO) Lisa Garciaaldo [id number] Lisa Garciaaldo 01/08/2016 1 [facility] - DIRECT CONNECTORCARE TYPE II (HMO) Lisa Garciaaldo [id number] Lisa Garciaaldo 09/20/2018 1 [facility] - DIRECT CONNECTORCARE TYPE II (HMO) Lisa Garciaaldo [id number] Lisa Campbello Notes Date Note Type Note Provider Name and Address Organization Details Recorded Time 12/16/2015 text/html PT Initial Eval*Reported bypatient.History: Chief complaint: (R cervical, scapular, shoulder & upper arm pain); Mechanism of injury: (she thinks it is from folding laundry at work); Duration: (3 mos.) Symptom intensity:average 05/17 Symptom duration:frequentl y Symptom change:symptoms are getting worse Symptom quality:dull; throbbing Aggravating Factors:pushing/pu lling; reaching; at end of day, folding laundry Alleviating Factors:nothing Sleep Status:difficulty sleeping due to pain(stomach sleeper and sometimes she can't due to pain) Prior History:similar problems in the past chronic(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 NDI: 17/50. R hand dominant Ayala Dominguez Ms, PT [address] [place], [address], [facility] 12/16/2015 14:51:00 12/23/2015 text/html Throbbing pain between neck and shoulder 06/17. When I sit and watch tv my arm starts hurting. Ayala Dominguez Ms, PT [address] [place], [address], [facility] 12/23/2015 10:26:15 01/08/2016 text/html I have been sick with a cold and in bed a lot. 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 Pain now 5/10 better than it was when I started here. She will not work again until this weekend. Pt. 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 Ayala Dominguez Ms, PT [address] [place], [address], [facility] 01/08/2016 11:24:45 09/20/2018 text/html 58 year old patient presents with right side hip and low back pain, mostly in the groin area.- pain has been for months- no injury that she remembers- went to [facility], had a CT scan and was told normal, they thought it might be due to a stone- denies urinary symptoms- difficulty getting into car as it requires lifting and swinging leg- taking ibuprofen for pain Migraines:- 3-4 times per month- was on topamax 50mg twice per day but stopped as did not follow up and no refills were given- felt they worked well and did not have any side effects- some nausea and sensitivity to light with migraines- 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
[2025-02-09 10:06] LABS: MANUAL DIFF FLAG NO
[2025-02-09 10:23] LABS: Basophils Absolute Auto 0.1 X10*3/uL (0.0-0.2); Basophils Percent Auto 1.3 % (0-2); Eosinophils Absolute Auto 0.1 X10*3/uL (0.0-0.4); Eosinophils Percent Auto 2.3 % (0-4); Hematocrit 39.9 % (37.0-47.0); Hemoglobin 13.1 g/dl (12.0-16.0); Imm Gran Abs Auto 0.02 X10*3/uL (0.00-0.03); Imm Gran Pct Auto 0.4 % (0.0-0.4); Lymphocytes Absolute Auto 1.4 X10*3/uL (1.2-4.9); Lymphocytes Percent Auto 25.4 % (20-40); Mean Corpuscular HGB Conc 32.8 g/dl (31.0-35.0); Mean Corpuscular Hemoglobin 30.7 pg (27.0-33.0); Mean Corpuscular Volume 93.4 fL (80.0-98.0); Mean Platelet Volume 10.3 fL (9.4-12.3); Monocytes Absolute Auto 0.4 X10*3/uL (0.1-1.2); Monocytes Percent Auto 7.4 % (2-11); Neutrophils Absolute Auto 3.5 x10*3/uL (2.0-8.3); Neutrophils Percent Auto 63.2 % (45-73); Platelet Count 330 X10*3/uL (160-400); Red Blood Count 4.27 X10*6/uL (4.20-5.50); Red Cell Distribution Width 13.3 % (11.0-16.0); White Blood Count 5.6 X10*3/uL (4.8-10.8)
[2025-02-09 11:12] LABS: Alanine Aminotransferase 14 U/L (0-31); Albumin Level 4.2 g/dL (3.5-5.0); Alkaline Phosphatase 114 U/L (39-117); Anion Gap 11 (12-20); Aspartate Amino Transferase 17 U/L (5-31); Bilirubin Total 0.3 mg/dL (0.0-1.0); Blood Urea Nitrogen 18 mg/dL (9-16); Calcium 9.6 mg/dL (8.4-10.2); Carbon Dioxide 25 mmol/L (22-29); Chloride 111 mmol/L (96-108); Cholesterol 202 mg/dL (<200); Estimated Glomerular Filt Rate > 60; Glucose Fasting 93 mg/dL (60-99); HDL Cholesterol 50 mg/dL (>40); LDL Cholesterol Calculated 133 mg/dL (<100); Potassium 3.6 mmol/L (3.3-5.1); Sodium 143 mmol/L (135-145); Total Protein 7.1 g/dL (6.5-8.0); Triglycerides 96 mg/dL (<150)
[2025-02-09 12:52] LABS: Gamma Glutamyl Transpeptidase 18 U/L (7-33)
[2025-02-14 20:59] LABS: Alk.Phos Iso. Macrohepatic 0 % (<=0); Alk.Phos Isoenzymes Bone 53 % (28-66); Alk.Phos Isoenzymes Intest 6 % (1-24); Alk.Phos Isoenzymes Liver 42 % (25-69); Alk.Phos Isoenzymes Placental 0 % (<=0); Alk.Phos Isoenzymes Total 104 U/L (37-153)
== END 2025-02-09 06:51 | disposition home or self-care (01) ==
LOC: HO.HMGCLDS 06:50
PROVIDERS: PCP Nurse Practitioner Family; Visit Provider Nurse Practitioner Family
DX: R74.8 Abnormal levels of other serum enzymes (principal); E78.5 Hyperlipidemia, unspecified
CPT/HCPCS: 36415; 80053; 80061; 82977; 84080; 85025

== ENCOUNTER 2025-03-05 07:57 | Outpatient (REF) | payer OTHER, SELFPAY ==
--- OUTSIDE RECORDS SUMMARY | 2025-03-05 08:03 | XMS_ITS | Data Portability ---
Author Organization [facility], , [facility] Address [address] [place] [address] Care Team Providers [employer] Delivery Consultant Name Role Phone MARIA DEL ROSARIO PENNINGTON Primary Care Provider Assessment Encounter Date Assessment Date Assessment LastModified [...] referral - Right hip pain [address], [address] [place], [address], 8 16:21:34 Procedures None recorded. Surgeries None recorded. Imaging XR, hip, bilateral - Right hip pain 2017 018 [facility] (Imaging), [address] [place], [address], 8 10:03:20 Medication Orders sumatripta n 50 mg tablet 2017 018 [facility]FACE [id number], [address] [place], [address], 8 14:43:51 topiramate 50 mg tablet 2017 018 INTERFACE [id number], [address] [facility] [place], [address], 8 14:43:49 Patient TargetsNo targets recorded. Patient InstructionsNo instructions recorded. Reason for Referral Physical Therapist Referral for Pain of right hip joint Right hip pain Referring [...] RED FIBROG LANDUL AR TISSUE Code: G0202, 94713 POS: VMG Electr onical ly signed Readin marlon Physic anuj: Matthew Renteria [facility] (Imaging) [address] , [place], [address], 11/29/2015 13:22:59 09/26/20 18 09/26/2018 XR, hip, [...] signed Giovanni Edward anuj: Leonidas chauhan MD [facility] (Imaging) [address] [place], [address], 09/26/2018 13:28:19 Result Notes None recorded. Problems Name Problem SNOMED Code Status Onset Date Resolution Date Notes Provider Name and Address Organization Details Recorded Time Major depressive disorder 531785073 Active Maria Del Rosario Pennington NP [address] [place], [address], [facility] 6 13:22:42 Migraine 26984637 Active Maria Del Rosario Pennington NP [address] [place], [address], [facility] 6 13:35:21 Problem Notes None recorded. Procedures Surgical History Date Name Laterality Status Provider Name and Address Organization Details Recorded Time 12/16/19 16 Treatment and Advice completed Ayala Dominguez Ms, PT [address] [place], [address], [facility] 12/16/2015 14:40:46 12/02/19 16 Tassoni - Colonoscopy completed Mike Rosado RN [facility] 12/02/2015 14:04:24 11/08/19 07 Laparo-asst vag hysterectomy completed Tori Priest RN [facility] 01/15/2016 14:29:15 Imaging Results Imaging Date Name Status LastModified by Organiz ation Details LastModified Time 10/29/2015 screening-bilat eral mammography completed [facility] (Imaging) [address] [place], [address], 11/29/2015 13:22:59 09/26/2018 XR, hip, bilateral completed [facility] (Imaging) [address] [place], [address], 09/26/2018 13:28:19 Procedure Notes None recorded. Medical [...] Address Organization Details Last Updated DateTime 09/20/2018 93886.43 g 76 /min 114 mm[Hg] 70 mm[Hg] Candida Babin MA [facility] 09/20/2018 14:27:23 Social History Question Answer Notes LastModified by Organizat ion Details LastModified Time Tobacco Smoking Status Never Smoker Kirstin Felix LPN null, [facility] 04/12/2015 09:03:55 What Is Your Level Of Alcohol Consumption? None Information not available 04/12/2015 What Is Your Level Of Caffeine Consumption? Heavy 5-6 Cups A Day; Encouraged To Cut Back [email or web address] Information not available 04/12/2015 How Much Tobacco Do You Chew? None Information not available 04/12/2015 What Type Of Diet Are You Following? REGULAR [email or web address] Information not available 04/12/2015 Which Illicit Or Recreational Drugs Have You Used? 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 0 [email or web address] Information not available 04/12/2015 Are There Any Guns Present In Your Home? No [email or web address] Information not available 04/12/2015 Live Alone Or With Others? With Others [email or web address] Information not available 04/12/2015 Patient Has Health Care Proxy Signed And In Chart No Ppwk Given 04/2015; Will Be Juan Luis [phone] [email or web address] Information not available 04/12/2015 Marital Status 32 Years-[facility] [email or web address] Information not available 04/12/2015 Mosquito Repellent Used Routinely Yes [email or web address] Information not available 04/12/2015 What Was The Date Of Your Most Recent Tobacco Screening? 09/20/2018 Information not available 05/31/2019 How Many Children Do You Have? 2 [email or web address] Information not available 04/12/2015 Seat Belts Used Routinely Yes [email or web address] Information not available 04/12/2015 Are You Sexually Active? Yes Information not available 04/12/2015 Smoke Alarm In Home Yes Information not available 04/12/2015 General Stress Level Medium [email or web address] Information not available 04/12/2015 Do You Use Sunscreen Routinely? Yes [email or web address] Information not available 04/12/2015 Sex: Unknown Functional Status None recorded. Mental Status None recorded. Family History Relationship Description Onset Age of this Age Resolved Age Notes LastModified by Organization Details LastModified Time Father Asthma severe , never tob, etoh; lives in [place] [email or web address] Not available 11/29/2015 13:23:17 Mother Hyperlipidem ia [email or web address] Not available 2015 13:23:17 Mother Myocardial infarction 60s [email or web address] Not available 11/29 13:23:17 Mother Major depressive disorder [email or web address] Not available 2015 13:23:17 Mother Dementia lives w vivianabarry t [email or web address] Not available 09/21/2018 10:15:42 Brother Shotgun accident [...] virus, quadrivalent, PF 09/20/2018 completed Not Available [facility] 0 02:38:08 Past Encounters Encounter ID Performer Location Encounter Start Date Encounter Closed Date Diagnosis/Indication Diagnosis SNOMED-CT Code Diagnosis ICD10 Code Diagnosis Note [id number] Sienna Petersen M.D. , [facility], OFFICE [address] [place] [address] 04/12/2015 08:46:31 04/12/2015 14:01:20 Migraine 53908178 migraine: chronic since teenage nausea, photophobi a will lock herself in closet has needed ER care as can be very severe Neuro ~2010 h/o imitrex and didn't help she does not think she was on propranolo l or amitriptyl ine in the past +blinking lights, +aura Screening mammography 25520888 Major depr essive disorder 171425442 Ongoing worsening depression with anxiety PHQ9 score [...] system (cries alone in her room) Insomnia 024067312 troub le falling asleep in setting of depression trial of c [id number] JUNIOR Garrett, [facility], [address] [place] [address] 10/29/2015 10:41:25 10/29/2015 12:27:23 Screening for malignant neoplasm of colon 332675697 Z12.11 Referral for a DIRECT booked colonoscop y. This patient is a healthy ASA Class 1 or 2 patient (only mild systemic disease), or a STABLE, well controlled insulin dependent diabetic. They do not have serious cardiac disease ie AK/angiopl asty within 1 year, symptomati c CHF; renal failure with CKD 4 or 5; take Coumadin, Plavix, Aggrenox, etc; nor take chronic narcotics. [Patients who take chronic narcotics should be referred to [facility] for a propofol procedure due to possible inability to sedate adequately with conscious sedation.] Screening for disorder 616459741 Z11.59 Adult heal th examination 710929352 Z00.00 see Risk Assessment and Lifestyle Change Counseling section above Counseling 681701073 Z71 .9 Major depr essive disorder 152115426 F32.9 significan t improvemen t since starting work and meeting friends in the area. did not try celexa. considerin g therapy Headache 75130641 R51 [id number] JUNIRO Garrett, [facility], [address] [place] [address] 11/29/2015 10:34:34 11/29/2015 11:55:10 Pain of shoulder region 91627782 M25.511 Migraine 98651005 G43.90 9 continue topomax Excedrin migraine as needed - imitrex has not helped in the past Neck pain 75182532 M54.2 [id number] Mike Rosado RN [facility], [address] [address] 12/02/2015 07:56:37 12/02/2015 13:07:03 [id number] Ayala Dominguez Ms, PT Physical Therapy, [address] [address] 12/16/2015 09:03:18 12/16/2015 14:51:38 Neck pain 56456055 M54.2 Pain of formerly [facility] 47510300 M25.958 [id number] Ayala Dominguez Ms, PT Physical Therapy, [address] [address] 12/23/2015 09:10:00 12/23/2015 10:33:41 Neck pain 05316222 M54.2 Pain of [facility] 67144329 M25.446 [id number] Ayala Dominguez Ms, PT Physical Therapy, [address] [address] 01/08/2016 09:01:26 01/08/2016 11:43:02 Neck pain 08954725 M54.2 Pain of [facility] 70729779 M25.466 [id number] Odette Huang PA-C , [facility], [address] [address] 09/20/2018 14:05:58 09/20/2018 14:48:50 Pain of right hip joint 7755910068 71147 M25.551 - will start with xray and physical theraopy- can continue with ibuprofen as needed for pain- return to office if not improving- recommend daily stretching Migraine 39200175 G43.90 9 - restart topamax 1 tablet daily for 7 days and then increase to twice daily- sumatripta n for migraines at onset- return to office if migraines are not improving in 1-2 months Active or passive immunization 868049266 Z23 Health Concerns Section Related Observation LastModified by Organization Detai ls LastModified Time None Recorded Concern Status LastModified by Organization Details LastModified Time None Recorded Advance Directives Directive None Recorded Payers Encounter Date Sequence Insurance Name Policy Number Policy Meza Covered Member ID Meza Member ID Guarantor Name 12/02/2015 1 FORMERLY [facility], [facility] - DIRECT CONNECTORCARE TYPE II (HMO) Lisa Benito [id number] Lisa Benito 12/16/2015 1 FORMERLY [facility], [facility] - DIRECT CONNECTORCARE TYPE II (HMO) Lisa Benito [id number] Lisa Benito 12/23/2015 1 FORMERLY [facility], [facility] - DIRECT CONNECTORCARE TYPE II (HMO) Lisa Benito [id number] Lisa Benito 01/08/2016 1 FORMERLY [facility], [facility] - DIRECT CONNECTORCARE TYPE II (HMO) Lisa Benito [id number] Lisa Benito 09/20/2018 1 FORMERLY [facility], [facility] - DIRECT CONNECTORCARE TYPE II (HMO) Lisa Benito [id number] Lisa Benito Notes Date Note Type Note Provider Name [...] in the past chronic(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 When I sit and watch tv my arm starts hurting. Aayla Dominguez Ms, PT [address] [place], [address], [facility] 12/23/2015 10:26:15 01/08/2016 text/html I [...] arm hurts. 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
--- OUTSIDE RECORDS SUMMARY | 2025-03-05 08:03 | XMS_ITS | Clinical Summary ---
Author Organization [facility] Address [address] [place] [address] Phone Care Team Providers Care Supervisor [employer] Name Role Phone Calos Huertas NP Primary Care Provider Allergies No known active allergies Medications atorvastatin (LIPITOR) 10 mg tablet Take 1 tablet (10 mg total) by mouth. at bedtime. 02/14/2025 Active azithromycin (ZITHROMAX) 250 mg tablet TAKE 2 TABLETS BY MOUTH TODAY, THEN TAKE 1 TABLET DAILY FOR 4 DAYS DIRECTED 08/01/2024 Active Symbicort 160-4.5 mcg/actuation inhaler Inhale 1 puff by mouth 2 (two) times a day. 02/14/2025 Active busPIRone (BUSPAR) 7.5 mg tablet Take 1 tablet (7.5 mg total) by mouth. 11/27/2024 Active LORazepam (ATIVAN) 1 mg tablet Take 1 tablet (1 mg total) by mouth 1 (one) time each day if needed. Max Daily Amount: 1 mg 03/17/2024 Active melatonin 3 mg tablet TAKE 1 TO 3 TABLETS BY MOUTH UP TO ONCE A DAY AT BEDTIME NEEDED. 11/27/2024 Active meloxicam (MOBIC) 15 mg tablet TAKE 1 TABLET BY MOUTH EVERY DAY NEEDED FOR FOR MODERATE PAIN. DO NOT COMBINE WITH OTHER NSAIDS. 05/11/2024 Active oxyCODONE (ROXICODONE) 5 mg immediate release tablet Take 1 tablet (5 mg total) by mouth every 8 (eight) hours if needed. for pain Max Daily Amount: 15 mg 07/06/2024 Active PARoxetine (PAXIL) 30 mg tablet take 2 tablets (60 mg total) by mouth every morning. 12/22/2024 Active propranoloL (INDERAL) 20 mg tablet Take 1 tablet (20 mg total) by mouth 1 (one) time each day in the morning. 01/09/2025 Active topiramate (TOPAMAX) 25 mg tablet Take 1 tablet (25 mg total) by mouth 1 (one) time each day in the morning. 04/11/2024 Active traZODone (DESYREL) 100 mg tablet Take 1 tablet (100 mg total) by mouth at bedtime as needed for sleep. 02/14/2025 Active Encounters Date Type Department Care Team Description 02/19/2025 2:30 PM EDT Office Visit Orthopedic Surgery [address] [address] Mika Murillo DPM Plantar fascial fibromatosis (Primary Dx); Pain in both feet; Equinus contracture of left ankle; Hallux rigidus, right foot 01/31/2025 3:00 PM EDT Consult Orthopedic Surgery [address] [address] Mika Murillo DPM Pain in both feet [...] - - Weight 80.3 kg (177 lb) 02/19/2025 2:37 PM EDT Height 157.5 cm (5' 2.01 ) 02/19/2025 2:37 PM ED T Body Mass Index 32.37 02/19/2025 2:37 PM EDT Plan of Treatment Health Maintenance Due Date Last Done Comments [...] age to complete this topic Meningococcal B Vaccine Aged Out No l onger eligible based on patient's age to complete [...] acetonide 40 mg/mL Informed Consent: ??Laterality: ??Left us Mika Murillo DPM IN CLINIC/BEDSIDE ORDERABLE S Final Result from Last 3 Months Insurance [facility] [employer] Care Teams Supervisor [employer] Relationship Specialty Start Date End Date Calos Huertas NP [address] [place], [place] PCP - General Family Medicine 12/12/24
== END 2025-03-05 07:58 | disposition home or self-care (01) ==
LOC: HO.MAMMO 07:57
PROVIDERS: PCP Nurse Practitioner Family; Visit Provider Nurse Practitioner Primary Care
DX: Z12.31 Encounter for screening mammogram for malignant neoplasm of breast (principal)
CPT/HCPCS: 77063; 77067

== ENCOUNTER → 2025-03-05 08:00 | Outpatient (BNV) | payer OTHER, SELFPAY | PROVIDERS: PCP Nurse Practitioner Family; Visit Provider Internal Medicine | DX: Z12.31 Encounter for screening mammogram for malignant neoplasm of breast (principal) | CPT/HCPCS: 77063; 77067 ==

== ENCOUNTER 2025-07-04 10:07 | Outpatient (AMB) | payer OTHER, SELFPAY ==
--- OUTSIDE RECORDS SUMMARY | 2025-07-04 10:55 | XMS_ITS | Clinical Summary ---
Author Organization [facility] Address [address] [place] [address] Phone Care Team Providers Care Sales Team Member Name Role Phone Calos Huertas NP Primary [...] bedtime as needed for sleep. 02/14/2025 Active Social History Tobacco Use Types Packs/Day Years [...] Years (1 of 1 - PCV) 2012 Depression Screening 11/08/2024 Colorectal Cancer Screening: Colonoscopy 12/12/2024 HIV Screening 12/12/2024 Hepatitis C Screening 12/12/2024 Social Influencers of Health Screening 12/12/2024 Influenza Vaccine (#1) 2025 4, 08/28/2023, 12/19/2022, Additional history exists DTaP,Tdap,and Td Vaccines (2 - Td or Tdap) 12/15/2027 12/15/2017 RSV Immunization Adult Patients Completed 11/19/2023 Zoster Vaccines Completed 11/19/2023, 08/28/2023 COVID-19 Vaccine Completed 08/24/2024, 10/2023, 12/19/2022, Additional history exists HIB Vaccines Aged [...] on patient's age to complete this topic Insurance [facility] Care Teams Sales Team Member Relationship Specialty Start Date End Date Calos Huertas NP [address] [place], [place] PCP - General Family Medicine 12/12/24
[2025-07-04 11:43] VITALS: BP 102/66; PULSE 67; TEMP 36.9; O2SAT 98; BMI 30.4
--- NOTE | 2025-07-04 11:43 | MHC.OFFWIV ---
Intake Vital Signs 07/04/25 11:43 Height 5 ft 2 in Weight 166 lb 6 oz BMI 30.4 BP 102/66 Blood Pressure Location Lt brachial Position Sitting Pulse 67 Pulse Source Pulse Oximeter Temp 98.4 F Temp Source Oral Pulse Oximetry (%) 98 Oxygen Delivery Method Room Air Intake Visit Reasons: EP-Syncope, Fell hit head Patient Tobacco Use Status: Never used Tobacco Allergies No Known Allergies (No Known Allergies*) Allergy (Verified 07/04/25 11:50) Medication List - Last Reconciled 07/04/25 by Katie Arteaga PA-C atorvastatin 10 mg PO BEDTIME budesonide-formoterol 160-4.5 mcg/actuation (Symbicort) 1 puff PO BID propranolol 20 mg PO QAM sumatriptan succinate 50 mg PO Q6-8H PRN trazodone 100 mg PO BEDTIME PRN 30 days Do you need a note to return to daycare/school/sports/work: No HPI HPI Comments History of Present Illness Details History of Present Illness - The patient is a 64-year-old female with past med hx of migraines, HLD, reactive airway disease and mild JOHNNY presenting with syncope and dizziness. - The syncope episode occurred last night around 9:30 PM when the patient was taking her dog out and felt dizzy before losing consciousness. She denies chest pain, shortness of breath, neck pain, shoulder pain or arm pain/numbness or tingling in her arms prior to the episode. She has been eating and drinking normally. - The patient was unconscious for approximately three to five minutes and was assisted by her who picked her up and carried her to blood. - She experienced dizziness described as the room spinning, which is a new occurrence for her. - The patient hit her head and lip during the fall, breaking her glasses, but has not experienced headaches, nausea, or vomiting since the incident. - She has a history of migraines but did not have a migraine at the time of the syncope. - There is no prior history of syncope or cardiac issues, although she has a family history of coronary artery disease. - The patient underwent a nuclear stress test in 2021 due to family history, which was reportedly normal. - She reports neck pain likely resulting from the fall. - She feels fine today, no further dizziness. Physical Exam General: Cooperative, healthy appearing, comfortable, no acute distress and well developed Orientation: Patient oriented x3 Limitations: No limitations Head: atraumatic Ears: Hearing grossly normal bilaterally Face and sinus: lower lip with small contusion Eyes: Appearance normal, both eyes and all related structures Neck: Normal visual inspection, full ROM Respiratory: Normal respiratory effort and able to speak in complete sentences. Skin: No rashes or lesions noted Neuro: Patient oriented x3, gait normal Extremities:moving all extremities normally PFSH Medical History Asthma Left otitis media with effusion Anxiety and depression Hx of migraines Sleep apnea Surgical History Hx of left knee surgery (10/22/23) H/O colonoscopy History of bilateral carpal tunnel release S/P EDWAR (total abdominal hysterectomy) Hx laparoscopic cholecystectomy Family History Father Asthma Mother Dementia CHF (congestive heart failure) Brother No problems noted. Son No problems noted. Son No problems noted. 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 Current occupational exposures/hazards: No Cognitive needs: No Hearing needs: No Vision needs: No Review of Systems Const All systems reviewed & are unremarkable except as noted in HPI and below Physical Exam Vital Signs: Last Vital Signs Temp 98.4 F 07/04/25 11:43 Pulse 67 07/04/25 11:43 BP 102/66 07/04/25 11:43 Pulse Ox 98 07/04/25 11:43 Oxygen Delivery Method Room Air 07/04/25 11:43 BMI result Body Mass Index 30.4 Assessment & Plan Assessment & Plan (1) Syncope and collapse: Code(s): R55 - Syncope and collapse Plan: Plan Patient was informed and verbally consented to the use of an ambient scribe for clinic note documentation during this visit. 1. Syncope - EKG NSR at 61BPM however T waves are present in all leads except V2-4; with no acute st or t wave changes - Referral to the emergency department for comprehensive evaluation of syncope. - [place] [facility] [place], spoke to Rachael Jacobsen PA-C Orders: Orders AMB EKG-In Office Today R55 - Syncope and collapse Coding Level of Care Code Est Pt Level 5 (39923) Diagnoses Syncope and collapse R55
== END 2025-07-04 12:43 | disposition home or self-care (01) ==
PROVIDERS: PCP Nurse Practitioner Family; Visit Provider Physician Assistant
DX: R55 Syncope and collapse (principal)

== ENCOUNTER → 2025-07-04 10:07 | Outpatient (BNVA) | payer OTHER, SELFPAY | PROVIDERS: PCP Nurse Practitioner Family; Visit Provider Physician Assistant | DX: R55 Syncope and collapse (principal); G43.909 Migraine, unspecified, not intractable, without status migrainosus; G47.33 Obstructive sleep apnea (adult) (pediatric); R42 Dizziness and giddiness | CPT/HCPCS: 93005; 99212 ==

== ENCOUNTER 2025-07-04 12:54 | Emergency (ER) | payer OTHER, SELFPAY ==
[2025-07-04] VITALS (7 sets, daily range): BP systolic 117–138; BP diastolic 60–74; PULSE 56–79; RESP 14–18; TEMP 36.1–37; O2SAT 96–98; BMI 30.3
--- NOTE | ~2025-07-04 | CT_ITS ---
CLINICAL HISTORY: syncope, +LOC CT cervical spine without contrast Comparison: None provided Findings: Straightening of normal cervical lordosis. Mild multilevel spondylosis with disc space narrowing, endplate sclerosis, and osteophytosis. No acute fractures or dislocations. No acute findings on limited view of the intracranial contents. Soft tissues of the neck are normal. Lung apices are clear. IMPRESSION: No evidence of acute fracture or traumatic listhesis of the cervical spine. This document has been electronically signed by: Rolando Mendoza MD on 07/04/2025 19:19:17
--- NOTE | ~2025-07-04 | CT_ITS ---
CLINICAL HISTORY: syncope, +head strike CT head without contrast Comparison: None provided Findings: No intra-axial mass, midline shift, hydrocephalus, or acute hemorrhage. No significant atrophy-like change or white matter disease. There is no sinus or mastoid fluid. The orbits are unremarkable. No skull fracture. IMPRESSION: 1. No acute intracranial findings specifically no acute intracranial hemorrhage. This document has been electronically signed by: Rolando Mendoza MD on 07/04/2025 19:17:33
--- NOTE | 2025-07-04 13:52 | ED_ITS ---
HPI - Syncope General Chief Complaint: Syncope Stated Complaint: Needs EKG Neck Pain Fall 07/03/25 Time Seen by Provider: 07/04/25 20:18 Source: patient Mode of arrival: ambulatory Limitations: language barrier (Adjunct Psychology Instructor services utilized.) History of Present Illness ED Provider: Rafat PARKER HPI narrative: The patient is a 64-year-old female presenting to the ED for evaluation after suffering a syncopal episode yesterday evening. The patient reports she was sitting on her couch for approximately 1 hour when she got up to let out her dog, patient reports while standing at the door watching her dog she began to feel warm, lightheaded, and next remembers waking up on the ground with her next to her. The patient's reports hearing a thought in the living room, and find the patient on the ground, unresponsive for approximately 60-90 seconds. The patient awoke without postictal period, was alert and oriented shortly after waking. The patient denies any chest pain, shortness of breath, abdominal pain, nausea, diaphoresis, headache, or other prodrome prior to the fall. Patient reports she has suffered from dizziness spells, specifically upon rising from a seated position for most of her life, but denies previous syncope as a result of the dizziness. Patient does report over the past 3 weeks she has been having increased activity level while taking care of her grandson who recently moved into the house. The patient denies any new medications, denies any substance abuse. Patient denies any recent sick contacts or other trauma. The patient reports she was feeling well last night and did not seek medical care, however this morning woke and was experiencing pain through her left neck radiating to the left arm and back, reports pain is worse with direct palpation of the left trapezius and lateral rotation of the head. Patient denies associated pleurisy, hemoptysis, or tenderness to palpation of the ribs. Related Data Previous Rx's ?Medication ?Instructions ?Recorded sumatriptan succinate 50 mg tablet 50 mg PO Q6-8H PRN migraine 01/09/25 headache #15 tabs budesonide-formoterol HFA 160 1 puff PO BID #10.2 ea 0 02/14/25 mcg-4.5 mcg/actuation aerosol inhaler (Symbicort) propranolol 20 mg tablet 20 mg PO QAM #30 tabs trazodone 100 mg tablet 100 mg PO BEDTIME PRN sleep 30 04/23/25 days #30 tabs atorvastatin 10 mg tablet 10 mg PO BEDTIME #90 tabs acetaminophen 500 mg capsule 1,000 mg (2 x 500 mg) PO .q8 PRN 07/04/25 fever or pain #30 caps cyclobenzaprine 10 mg tablet 10 mg PO TID PRN muscle s pasm #14 07/04/25 tabs ibuprofen 600 mg tablet 600 mg PO Q8H PRN fever or p ain 07/04/25 #30 tabs Allergies Allergy/AdvReac Type Severity Reaction Status Date / Time No Known Allergies (No Known Allergy Verified 07/04/25 13:56 Allergies*) Review of Systems 2 Review of Systems: Yes all other systems are reviewed and are negative [facility] Past Medical History Medical History Asthma Left otitis media with effusion Anxiety and depression Hx of migraines Sleep apnea Surgical History Hx of left knee surgery (10/22/23) H/O colonoscopy History of bilateral carpal tunnel release S/P EDWAR (total abdominal hysterectomy) Hx laparoscopic cholecystectomy Family History Family History Father Asthma Mother Dementia CHF (congestive heart failure) Brother No problems noted. Son No problems noted. Son No problems noted. Other Mental health disorder Social History Social History Household Members: Spouse Housing: House Are you a primary health care recruiter to a significant other at home: No Do you presently have visiting nurse or other home services: No Alcohol intake: never Patient Tobacco Use Status: Never used Tobacco Smoked in Last 30 Days: No e-Cigarette/Vaping Use: Never Used Second Hand Smoke Exposure: No Use of substances other than those prescribed or required for medical reasons: No Advance Directives: Yes Advance Directives on File: Yes Advance Directives Date on File: 05/16/24 Do you have a plan to hurt others: No Plan Patient : No service: No Current occupational status: unemployed Current occupation: Right hand dominate Current occupational exposures/hazards: No Cognitive needs: No Hearing needs: No Vision needs: No Physical Exam 2 Vital Signs: Vital Signs: Last Vital Signs Temp 97.8 F 07/04/25 22:04 Pulse 56 07/04/25 22:04 Resp 16 07/04/25 22:04 BP 125/63 07/04/25 22:04 Pulse Ox 97 07/04/25 22:04 O2 Del Method Room Air 07/04/25 22:04 BMI result Body Mass Index 30.3 CONSTITUTIONAL: The patient appears non-toxic, well nourished and in no acute distress. Vital signs as documented. HEAD: Atraumatic, normocephalic. EYES: EOMs grossly intact, pupils equal, conjunctiva clear, no exudate. ENT: Nares patent, no discharge. Airway patent, no audible stridor, visible mucosa is pink and moist without noted lesions. NECK: Trachea is midline, no obvious masses or gross abnormalities. No midline spinous tenderness, no crepitus, no step-off. No impaired range of motion. There is tenderness to palpation of the left trapezius, with increased pain with lateral rotation of the neck. CHEST: Symmetric movement, normal appearance. No tenderness to palpation. Specifically no tenderness, crepitus, or step-off with palpation of the left anterior and posterior ribs. Pain is not reproduced with deep respiration. LUNGS: LS present and CTAB, no w/r/r. Non-labored work of breathing. CARDIAC: Regular Rhythm, S1/S2 appreciated, no murmurs, rubs or gallops. ABDOMEN: Abdomen soft and non-tender x4 quadrants, no palpable masses or organomegaly. : Deferred. EXTREMITIES: Normal tone, moves all extremities spontaneously without reported pain. No obvious acute injury or deformity noted. There is tenderness to palpation of the left trapezius radiating to the left shoulder, no bony tenderness of the left shoulder, no impaired or painful range of motion, no tenderness of the clavicle or AC joint. 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 NEURO: Alert and oriented x3, CN II-XII appear grossly intact. Cerebellar Functioning grossly intact. No obvious sensory or motor deficits. Speech clear and appropriate. PSYCH: normal affect, appropriate eye contact, fluid speech, with appropriate response to questioning. No reported suicidality or homicidality. SKIN: Warm, dry, color appropriate, normal turgor. No rashes noted. Course Course Course Narrative: This is an RME: Additional HPI, ROS, PE not included below will be deferred to primary provider. RME assessment and note performed by: Rachael Jacobsen PA-C This is a [id number]-female, migraines, obstructive sleep apnea, depression, anxiety who presents to the ER with concerns of syncopal episode which occurred last night. She was watching television at 09:00PM last night and got up to take her dog out and started to feel warm, felt like she was going to pass out. She reports that she lost consciousness Plan: Medications Administered Discontinued Medications Generic Name Dose Route Start Last Admin Trade Name Marcianoq PRN Reason Stop Dose Admin Acetaminophen 975 mg 07/04/25 21:15 07/04/25 21:26 Acetaminophen 325 Mg Tablet PO 07/04/25 21:16 975 mg ONCE ONE Administration Cyclobenzaprine HCl 10 mg 07/04/25 21:15 07/04/25 21:26 Cyclobenzaprine Hcl 10 Mg Tablet PO 07/04/25 21:16 10 mg ONCE ONE Administration Ketorolac Tromethamine 30 mg 07/04/25 21:15 07/04/25 21:27 Ketorolac Tromethamine 30 Mg/Ml Vial IM 07/04/25 21:16 30 mg ONCE ONE Administration Lidocaine 1 patch 07/04/25 21:15 07/04/25 21:27 Lidocaine 4 % Patch Adh..Patch TRANSDERMA 07/04/25 21:16 1 patch ONCE ONE Administration Protocol Medical Decision Making Medical Decision Making MDM Narrative: 9:22 PM 07/04/2025 (Steve PARKER): The patient is a 64-year-old female presenting to the ED for evaluation after experiencing a syncopal episode at home yesterday evening. The patient reports sitting on a couch for approximately 1 hour prior to rising to let her dog out, upon arising patient became dizzy, warm, lightheaded and then suffered a syncopal episode. The patient denies any chest pain, headache, focal neurological deficit, shortness of breath, or other symptoms prior to the episode. The patient reports she has suffered from dizziness upon standing throughout her entire life but never with previous syncope. Patient presenting to the ED today after she developed left- sided shoulder/back/neck pain upon waking. The patient has not taken any medications for her symptoms. The patient in the ED appears in no acute distress, exam is largely benign with the exception of tenderness of the left trapezius, no other acute findings. The patient is not orthostatic in the ED. The patient's laboratory evaluation shows no leukocytosis, anemia, electrolyte abnormality, or ROMAINE, there is no LFT abnormality noted. The patient's EKG is nonischemic, troponin is negative. Patient's CT head and neck show no acute intracranial pathology, calvarial fracture, or cervical spine fracture. The cause of the patient's syncope episode last night most likely appears related to postural hypotension in the setting of recently increased activity level. The patient has no tachycardia, hypotension, hypoxia, or pleurisy, low concern for PE, however patient isn't able to be ruled out by PERC secondary to age, due to the patient's syncope episode without other definitive explanation we will obtain D-dimer to rule out PE. The patient's workup reveals no cardiac cause for syncope, no evidence of acute injury secondary to syncope. The patient does have tenderness of the left trapezius which appears musculoskeletal in nature, we will treat with Toradol, Tylenol, Flexeril, and lidocaine patch. Pending improvement in symptoms and negative D-dimer patient appears appropriate for discharge with outpatient PCP follow up. 10:11 PM 07/04/2025 (Steve PARKER): Patient's D-dimer is negative. Patient reports improvement symptoms following interventions, patient will be discharged for outpatient follow up. Admission/Observation Consideration of admission/observation: Escalation of care including admission/observation considered Lab Data MDM Lab Attestation statement: I reviewed the patient's lab results. 07/04/25 14:10 07/04/25 14:10 Labs: Lab Results 07/04/25 07/04/25 Range/Units 14:10 21:37 WBC 5.9 (4.8-10.8) X10*3/uL RBC 4.48 (4.20-5.50) X10*6/uL Hgb 13.6 (12.0-16.0) g/dl Hct 42.1 (37.0-47.0) % MCV 94.0 (80.0-98.0) fL MCH 30.4 (27.0-33.0) pg MCHC 32.3 (31.0-35.0) g/dl RDW 13.2 (11.0-16.0) % Plt Count 330 (160-400) X10*3/uL MPV 9.8 (9.4-12.3) fL Immature Gran % (Auto) 0.2 (0.0-0.4) % Neut % (Auto) 67.7 (45-73) % Lymph % (Auto) 22.8 (20-40) % Ripley % (Auto) 6.6 (2-11) % Eos % (Auto) 1.9 (0-4) % Baso % (Auto) 0.8 (0-2) % Lymph # (Auto) 1.4 (1.2-4.9) X10*3/uL Ripley # (Auto) 0.4 (0.1-1.2) X10*3/uL Eos # (Auto) 0.1 (0.0-0.4) X10*3/uL Baso # (Auto) 0.1 (0.0-0.2) X10*3/uL Abs Immat Gran (auto) 0.01 (0.00-0.03) X10*3/uL Absolute Neuts (auto) 4.0 (2.0-8.3) x10*3/uL Absolute Nucleated RBC 0.000 (0.0-0.012) X10*3/uL Nucleated RBC % (auto) 0.0 (0.0-0.2) /100WBC D-Dimer High Sensitivty 165 NG/ML Sodium 139 (135-145) mmol/L Potassium 3.9 (3.3-5.1) mmol/L Chloride 106 (96-108) mmol/L Carbon Dioxide 26 (22-29) mmol/L Anion Gap 11 L (12-20) BUN 16 (9-16) mg/dL Creatinine 0.92 (0.5-1.4) mg/dL Estim Creat Clear Calc 60.2 Estimated GFR > 60 Random Glucose 99 (60-115) mg/dL Calcium 9.9 (8.4-10.2) mg/dL Magnesium 2.2 (1.6-2.6) mg/dL Total Bilirubin 0.3 (0.0-1.0) mg/dL Direct Bilirubin 0.1 (0.0-0.5) mg/dL AST 25 (5-31) U/L ALT 21 (0-31) U/L Alkaline Phosphatase 128 H (39-117) U/L Troponin I High Sens < 2.7 (<3.5-17.0) ng/L Total Protein 7.6 (6.5-8.0) g/dL Albumin 4.5 (3.5-5.0) g/dL Independent Interpretation I performed an independent interpretation of an: EKG (EKG shows sinus rhythm with a rate of 62, no evidence of acute ischemia, no ST elevation, no ectopy. QTC 401. Compared to previous on 05/26/2024 there are no acute morphology changes. ) Radiology Impression Discussion of test interpretation with radiology: I have reviewed the radiologist's reading. Radiologist Impression: CLINICAL HISTORY: syncope, +head strike CT head without contrast Comparison: None provided Findings: No intra-axial mass, midline shift, hydrocephalus, or acute hemorrhage. No significant atrophy-like change or white matter disease. There is no sinus or mastoid fluid. The orbits are unremarkable. No skull fracture. IMPRESSION: 1. No acute intracranial findings specifically no acute intracranial hemorrhage. This document has been electronically signed by: Rolando Mendoza MD on 07/04/2025 19:17:33 CLINICAL HISTORY: syncope, +LOC CT cervical spine without contrast Comparison: None provided Findings: Straightening of normal cervical lordosis. Mild multilevel spondylosis with disc space narrowing, endplate sclerosis, and osteophytosis. No acute fractures or dislocations. No acute findings on limited view of the intracranial contents. Soft tissues of the neck are normal. Lung apices are clear. IMPRESSION: No evidence of acute fracture or traumatic listhesis of the cervical spine. This document has been electronically signed by: Rolando Mendoza MD on 07/04/2025 19:19:17 Independent Historian Clinical information obtained from an independent historian. History obtained from or confirmed by: Spouse Discharge Plan Discharge Clinical Impression: Syncope Qualifiers: Syncope type: unspecified Qualified Code(s): R55 - Syncope and collapse Patient Disposition: Home, Self-Care Instructions: Syncope (ED) Additional Instructions: Thank you for choosing [facility] Emergency Department for your care today. Thankfully your laboratory evaluation, EKG, CT, and exam today are all reassuring. There was no evidence of any acute cardiac, neurologic, metabolic, infectious, coagulopathic (blood clot), or other dangerous cause for your fainting episode last night. There was also no evidence of any acute fracture or other severe injury secondary to your fainting episode. At this time there is no indication for admission to the hospital or continued ED observation, and it is safe to discharge you home. Your symptoms may have been related to low blood pressure which can occur when rising from a seated position. Your fall may have resulted in bruising and strain of your left trapezius muscle which would explain your pain in your neck, back, and shoulder. You may take alternating (staggered) doses of ibuprofen 600mg and Tylenol 1000mg every 4 hours as needed for any additional pain. Please rest the injured area, and apply ice for 20 minutes every hour. Please stay well hydrated and get plenty of rest. As a part of your care plan, you have also been prescribed a muscle relaxer. Please take this medication only for severe pain or spasm that is not relieved by ibuprofen and/or Tylenol. Muscle relaxer medications can carry high risk of unintentional addiction and abuse. Take this medication only as directed and only if absolutely necessary. This medicine can make you drowsy, you are not allowed to drive, operate heavy machinery, or be the sole care provider for children while taking this medication. We have treated you with a lidocaine patch, if you find this provides you significant relief additional patches can be purchased at any local pharmacy without a prescription. Please follow up with your primary care physician for re-evaluation, additional management of your symptoms, and continued preventative care. If you do not have a primary care physician, please call the [facility] at [phone] to establish a new primary care physician. While waiting to establish your new primary care physician, you can call our Walk[facility]in [facility] at [phone] for non-emergency needs. Please return to the emergency department if you develop a severe or sudden change in your symptoms, a fever over 100.4 that does not improve with Tylenol or Ibuprofen, recurrent vomiting, or any other new or worsening symptoms or concerns. Prescriptions: New cyclobenzaprine 10 mg tablet 10 mg PO TID PRN (Reason: muscle spasm) Qty: 14 0RF ibuprofen 600 mg tablet 600 mg PO Q8H PRN (Reason: fever or pain) Qty: 30 0RF acetaminophen 500 mg capsule 1,000 mg PO .q8 PRN (Reason: fever or pain) Qty: 30 0RF No Action sumatriptan succinate 50 mg tablet 50 mg PO Q6-8H PRN (Reason: migraine headache) Qty: 15 1RF Rx Instructions: do not exceed 4 doses per 24 hrs budesonide-formoterol [Symbicort] 160-4.5 mcg/actuation HFA aerosol inhaler 1 puff PO BID Qty: 10.2 5RF propranolol 20 mg tablet 20 mg PO QAM Qty: 30 2RF trazodone 100 mg tablet 100 mg PO BEDTIME PRN (Reason: sleep) 30 Days Qty: 30 2RF atorvastatin 10 mg tablet 10 mg PO BEDTIME Qty: 90 1RF Referrals: Calos Huertas, [employer] [Primary Care Provider, Internal Medicine] Clinical Impression: Syncope Print Language: Algerian
--- NOTE | 2025-07-04 13:56 | ECG_ITS ---
Test Reason : CP Blood Pressure : */* mmHG Vent. Rate : 62 BPM Atrial Rate : 62 BPM P-R Int : 132 ms QRS Dur : 84 ms QT Int : 396 ms P-R-T Axes : 27 33 16 degrees QTcB Int : 401 ms Normal sinus rhythm Nonspecific T wave abnormality Abnormal ECG When compared with ECG of 26-May-2024 08:18, No significant change was found Referred By: Rachael Jacobsen Electronically Signed By: JOSHUA BARKLEY
[2025-07-04 14:14] LABS: MANUAL DIFF FLAG NO
[2025-07-04 14:19] LABS: Hematocrit 42.1 % (37.0-47.0); Hemoglobin 13.6 g/dl (12.0-16.0); Imm Gran Abs Auto 0.01 X10*3/uL (0.00-0.03); Imm Gran Pct Auto 0.2 % (0.0-0.4); Lymphocytes Absolute Auto 1.4 X10*3/uL (1.2-4.9); Mean Corpuscular HGB Conc 32.3 g/dl (31.0-35.0); Mean Corpuscular Hemoglobin 30.4 pg (27.0-33.0); Mean Corpuscular Volume 94.0 fL (80.0-98.0); NRBC Abs Auto 0.000 X10*3/uL (0.0-0.012); NRBC Pct Auto 0.0 /100WBC (0.0-0.2); Platelet Count 330 X10*3/uL (160-400); Red Blood Count 4.48 X10*6/uL (4.20-5.50); White Blood Count 5.9 X10*3/uL (4.8-10.8)
[2025-07-04 14:36] LABS: Alanine Aminotransferase 21 U/L (0-31); Albumin Level 4.5 g/dL (3.5-5.0); Alkaline Phosphatase 128 U/L (39-117); Anion Gap 11 (12-20); Aspartate Amino Transferase 25 U/L (5-31); Blood Urea Nitrogen 16 mg/dL (9-16); Calcium 9.9 mg/dL (8.4-10.2); Carbon Dioxide 26 mmol/L (22-29); Chloride 106 mmol/L (96-108); Creatinine Clr Calc Pharmacy 60.2; Estimated Glomerular Filt Rate > 60; Magnesium 2.2 mg/dL (1.6-2.6); Potassium 3.9 mmol/L (3.3-5.1); Sodium 139 mmol/L (135-145); Total Protein 7.6 g/dL (6.5-8.0)
[2025-07-04 14:44] LABS: Troponin-I High Sensitivity < 2.7 ng/L (<3.5-17.0)
--- OUTSIDE RECORDS SUMMARY | 2025-07-04 19:58 | XMS_ITS | Clinical Summary ---
Author Organization [facility] Address [address] [place] [address] Phone Care Team Providers Care Compressor Operator Name Role Phone Calos Huertas NP Primary Care Provider [phone] Allergies No known active allergies Medications atorvastatin [...] patient's age to complete this topic Insurance [facility] [place] [id number] Care Teams Compressor Operator Relationship Specialty Start Date End Date Calos Huertas NP [address], [place] PCP - General Family Medicine 12/12/24
[2025-07-04] MEDS: Lidocaine 4 % Patch ADH..PATCH 1 PATCH TRANSDERMA (21:27)
[2025-07-04 21:54] LABS: D Dimer High Sensitivity 165 NG/ML
== END 2025-07-04 22:33 | disposition home or self-care (01) ==
PROVIDERS: Physician Assistant; Physician Assistant Medical; Emergency Provider Student in an Organized Health Care Education/Training Program; PCP Nurse Practitioner Family
DX: S09.90XA Unspecified injury of head, initial encounter (principal); W19.XXXA Unspecified fall, initial encounter; Y93.9 Activity, unspecified; Y92.9 Unspecified place or not applicable; Y99.9 Unspecified external cause status; R55 Syncope and collapse; M54.2 Cervicalgia; R07.9 Chest pain, unspecified
CPT/HCPCS: 36415; 70450; 72125; 80048; 80076; 83735; 84484; 85025; 85379; 93005; 96372; 99284; 99285; J1885

== ENCOUNTER → 2025-07-04 13:56 | Outpatient (BNV) | payer OTHER, SELFPAY | PROVIDERS: PCP Nurse Practitioner Family; Visit Provider Student in an Organized Health Care Education/Training Program | DX: M47.812 Spondylosis without myelopathy or radiculopathy, cervical region (principal); R55 Syncope and collapse | CPT/HCPCS: 70450; 72125 ==

== ENCOUNTER → 2025-07-04 13:56 | Outpatient (BNV) | payer OTHER, SELFPAY | PROVIDERS: Emergency Provider Student in an Organized Health Care Education/Training Program; PCP Nurse Practitioner Family; Visit Provider Internal Medicine | DX: R94.31 Abnormal electrocardiogram [ECG] [EKG] (principal); R07.9 Chest pain, unspecified | CPT/HCPCS: 93010 ==